=== PATIENT | female | born 1955 | race Caucasian/White ===

== ENCOUNTER → 2016-10-21 | Outpatient (CLI) | payer OTHER ==
[~2016-10-21] MED LIST: ASPCH81X PO; BNC/40 PO; CLC100 PO; CLIN150C PO; CLOP1TAB5 PO; COMBIVENT; FURO40TA3 PO; GLC5 PO; INSUINJ12 SC; LEVO200T6 PO; LEVO500T19 PO; LINA1CAP PO; LINA72CA; LPT/40 PO; METF1000 PO; METO25TA56 PO; NTRGSL/4 UT; NVLGI SC; OLME40TA30 PO; OLMETAB3; OMEP20CA9; OMEP40CA41 PO; OXYC-57 PO; SYN175 PO; TNR50 PO
[2016-10-21 13:18] LABS: BASO % 1.4 %; BASO ABS # 0.09 K/uL (0-0.2); COMPLETE YES; EOS % 2.1 %; HEMATOCRIT 38.8 % (37-47); IG% 0.2 %; LYMPH % 28.7 %; MEAN CELL VOLUME 87.4 fL (80-100); MEAN CORPUSCULAR HEMOGLOBIN 30.2 pg (25-34); MEAN CORPUSCULAR HGB CONC 34.5 g/dl (32-36); MEAN PLATELET VOLUME 9.4 fL (7.4-10.4); MONO % 8.3 %; NEUT % 59.3 %; PLATELET COUNT 243 K/uL (130-400); RED BLOOD COUNT 4.44 M/uL (4.2-5.4); WHITE BLOOD COUNT 6.63 K/uL (4.8-10.8)
[2016-10-21 13:27] LABS: ALT/SGPT 81 U/L (12-78); BLOOD UREA NITROGEN 22 mg/dl (7-18); BUN/CREATININE RATIO 18.4 (10-20); CALCIUM 8.9 mg/dl (8.5-10.1); CARBON DIOXIDE 25 mmol/L (21-32); CHLORIDE 94 mmol/L (98-107); CHOLESTEROL 151 mg/dl (0-200); GLUCOSE 345 mg/dl (70-99); POTASSIUM 4.9 mmol/L (3.5-5.1); SODIUM 129 mmol/L (136-145)
[2016-10-21 13:30] LABS: ALB/GLOB RATIO 0.8 (0.9-2); AST/SGOT 57 U/L (15-37)
[2016-10-21 13:37] LABS: ALKALINE PHOSPHATASE 137 U/L (45-117); BETA-HYDROXYBUTYRATE 1.15 mg/dL (0.2-2.81); CHOLESTEROL/HDL RATIO 3.9; HDL CHOLESTEROL 39 mg/dl; LDL CHOLESTEROL CALCULATED 82 mg/dl; THYROID STIMULATING HORMONE 0.382 uIu/ml (0.300-4.500); TRIGLYCERIDES 152 mg/dl (0-150); VERY LOW DENSITY LIPOPROT CALC 30 mg/dl
[2016-10-21 14:00] LABS: ESTIMATED AVERAGE GLUCOSE 197 mg/dl; HA1C FLAG Normal (Normal)
== END | disposition home or self-care (01) ==
LOC: C.LABSPEC 12:56
PROVIDERS: ATTEND Family Medicine
DX: E11.9 Type 2 diabetes mellitus without complications (principal); I10 Essential (primary) hypertension; E03.9 Hypothyroidism, unspecified

== ENCOUNTER → 2017-01-21 | Outpatient (CLI) | payer OTHER ==
[2017-01-21 13:51] LABS: BASO % 0.7 %; BASO ABS # 0.05 K/uL (0-0.2); COMPLETE YES; EOS % 2.5 %; HEMATOCRIT 41.2 % (37-47); IG% 0.1 %; LYMPH % 30.4 %; LYMPH ABS # 2.05 K/uL (1.2-3.4); MEAN CELL VOLUME 92.4 fL (80-100); MEAN CORPUSCULAR HEMOGLOBIN 30.5 pg (25-34); MEAN PLATELET VOLUME 9.6 fL (7.4-10.4); MONO % 7.6 %; NEUT % 58.7 %; PLATELET COUNT 240 K/uL (130-400); RED BLOOD COUNT 4.46 M/uL (4.2-5.4); WHITE BLOOD COUNT 6.75 K/uL (4.8-10.8)
[2017-01-21 14:06] LABS: CALCIUM 8.7 mg/dl (8.5-10.1)
[2017-01-21 14:17] LABS: ALT/SGPT 38 U/L (12-78); BLOOD UREA NITROGEN 21 mg/dl (7-18); BUN/CREATININE RATIO 17.7 (10-20); CARBON DIOXIDE 27 mmol/L (21-32); CHLORIDE 104 mmol/L (98-107); CHOLESTEROL 173 mg/dl (0-200); GLUCOSE 319 mg/dl (70-99); POTASSIUM 4.4 mmol/L (3.5-5.1); SODIUM 137 mmol/L (136-145)
[2017-01-21 14:19] LABS: ALB/GLOB RATIO 0.9 (0.9-2); ALKALINE PHOSPHATASE 122 U/L (45-117); AST/SGOT 24 U/L (15-37); CHOLESTEROL/HDL RATIO 3.7; HDL CHOLESTEROL 47 mg/dl
[2017-01-21 14:27] LABS: BETA-HYDROXYBUTYRATE 0.71 mg/dL (0.2-2.81); LDL CHOLESTEROL CALCULATED 85 mg/dl; TRIGLYCERIDES 206 mg/dl (0-150); VERY LOW DENSITY LIPOPROT CALC 41 mg/dl
[2017-01-21 14:28] LABS: ESTIMATED AVERAGE GLUCOSE 223 mg/dl; HA1C FLAG Normal (Normal)
== END | disposition home or self-care (01) ==
LOC: C.LABSPEC 13:13
PROVIDERS: ATTEND Family Medicine
DX: E11.9 Type 2 diabetes mellitus without complications (principal)

== ENCOUNTER → 2017-04-22 | Outpatient (CLI) | payer OTHER ==
[2017-04-22 13:53] LABS: BASO % 0.6 %; BASO ABS # 0.04 K/uL (0-0.2); COMPLETE YES; HEMATOCRIT 44.1 % (37-47); IG% 0.1 %; LYMPH % 25.4 %; LYMPH ABS # 1.72 K/uL (1.2-3.4); MEAN CELL VOLUME 90.4 fL (80-100); MEAN CORPUSCULAR HEMOGLOBIN 30.3 pg (25-34); MEAN CORPUSCULAR HGB CONC 33.6 g/dl (32-36); MEAN PLATELET VOLUME 9.6 fL (7.4-10.4); MONO % 7.7 %; NEUT % 65.2 %; PLATELET COUNT 242 K/uL (130-400); RED BLOOD COUNT 4.88 M/uL (4.2-5.4); WHITE BLOOD COUNT 6.78 K/uL (4.8-10.8)
[2017-04-22 14:15] LABS: ALT/SGPT 32 U/L (12-78); AST/SGOT 19 U/L (15-37); BLOOD UREA NITROGEN 22 mg/dl (7-18); BUN/CREATININE RATIO 18.4 (10-20); CALCIUM 9.3 mg/dl (8.5-10.1); CARBON DIOXIDE 27 mmol/L (21-32); CHLORIDE 102 mmol/L (98-107); GLUCOSE 198 mg/dl (70-99); HDL CHOLESTEROL 43 mg/dl; POTASSIUM 4.5 mmol/L (3.5-5.1); SODIUM 136 mmol/L (136-145)
[2017-04-22 14:19] LABS: ESTIMATED AVERAGE GLUCOSE 217 mg/dl; HA1C FLAG Normal (Normal)
[2017-04-22 14:21] LABS: ALB/GLOB RATIO 0.9 (0.9-2); ALKALINE PHOSPHATASE 130 U/L (45-117); CHOLESTEROL 164 mg/dl (0-200); CHOLESTEROL/HDL RATIO 3.8; LDL CHOLESTEROL CALCULATED 86 mg/dl; THYROID STIMULATING HORMONE 0.421 uIu/ml (0.300-4.500); TRIGLYCERIDES 175 mg/dl (0-150); VERY LOW DENSITY LIPOPROT CALC 35 mg/dl
== END | disposition home or self-care (01) ==
LOC: C.LABSPEC 13:32
PROVIDERS: ATTEND Family Medicine
DX: E11.9 Type 2 diabetes mellitus without complications (principal); I10 Essential (primary) hypertension; E03.9 Hypothyroidism, unspecified

== ENCOUNTER 2017-05-03 05:52 | Inpatient (IN) | payer OTHER ==
--- NOTE | 2017-05-02 18:08 | DIAGNOSTIC IMAGING REPORT ---
CHEST 2 VIEWS ROUTINE CLINICAL HISTORY: PRE OP TESTING preoperative evaluation COMPARISON STUDY: No previous studies for comparison. FINDINGS: The bones soft tissues and hemidiaphragms are normal. The cardiomediastinal silhouette is normal. The lungs are clear. The pulmonary vasculature is normal. IMPRESSION: Negative chest. The above report was generated using voice recognition software. It may contain grammatical, syntax or spelling errors. Electronically signed by: Darryl Fajardo M.D. 05/02/2017 6:07 PM Dictated Date/Time: 05/02/2017 6:07 PM
[2017-05-02 19:25] LABS: BASO % 0.6 %; BASO ABS # 0.04 K/uL (0-0.2); COMPLETE YES; EOS % 2.9 %; HEMATOCRIT 37.9 % (37-47); IG% 0.3 %; LYMPH % 25.3 %; LYMPH ABS # 1.67 K/uL (1.2-3.4); MEAN CELL VOLUME 90.2 fL (80-100); MEAN CORPUSCULAR HEMOGLOBIN 31.2 pg (25-34); MEAN CORPUSCULAR HGB CONC 34.6 g/dl (32-36); MEAN PLATELET VOLUME 9.7 fL (7.4-10.4); MONO % 11.7 %; NEUT % 59.2 %; PLATELET COUNT 244 K/uL (130-400)
[2017-05-02 19:26] LABS: INR 0.9 (0.9-1.1); PROTHROMBIN TIME (PATIENT) 9.6 SECONDS (9.0-12.0)
[2017-05-02 19:43] LABS: BLOOD UREA NITROGEN 26 mg/dl (7-18); BUN/CREATININE RATIO 18.7 (10-20); CALCIUM 8.7 mg/dl (8.5-10.1); CARBON DIOXIDE 27 mmol/L (21-32); CHLORIDE 99 mmol/L (98-107); SODIUM 134 mmol/L (136-145)
[2017-05-02 19:48] LABS: GLUCOSE 368 mg/dl (70-99)
[2017-05-02 20:00] LABS: BETA-HYDROXYBUTYRATE 0.78 mg/dL (0.2-2.81)
[2017-05-03] VITALS (10 sets, daily range): BP systolic 94–186; BP diastolic 29–113; PULSE 71–110; TEMP 36.2–36.9; O2SAT 94–97; BMI 32.0
[~2017-05-03] VITALS: Ht 167.6 cm; Wt 95.8 kg
--- NOTE | 2017-05-03 05:43 | History and Physical ---
History & Physical Date of Service May 03, 2017. History & Physical CC: Occluded left superficial femoral artery stents with rest pain HPI: Mrs. Pak states that she has had this wound for approximately 3 months. She states that she has been seeing a practice professional for a few months now and there has not been significant improvement. She does have a history of previously having a right iliac artery stent as well as left iliac artery stent placed. The patient does continue to smoke a pack of cigarettes daily. She admits bilateral calf claudication. Both legs are approximately equal and this occurs within 1 block distance. She denies any wounds or ulcerations on her right foot at this time. She did undergo ultrasound evaluation to determine the patency of her stents which demonstrates patent iliac artery stents. The bilateral lower extremity arterial ultrasound does indicate severe disease in her bilateral lower extremities with a right SFA occlusion and left severe stenosis with monophasic flow distal to those lesions and heavily calcified distal arteries, although she does have 3-vessel runoff to both feet. She underwent stenting of the left SFA which was successful but it has subsequently occluded and she now has developed rest pain. ALLERGIES: PENICILLIN AND LISINOPRIL. Medications were documented and reviewed and no changes were made. Past medical history is positive for diabetes, hypertension, coronary artery disease. Previous surgeries include tonsillectomy, cholecystectomy, , and breast biopsy. Social History: She smokes 1 pack a day for 45+ years. She does not drink. Review of Systems: Review of 10 systems were asked. Only positive findings were related to her lower extremities and the history of present illness. PHYSICAL EXAMINATION: Vital signs are as follows, blood pressure 162/60 in the right arm, 144/64 in the left, heart rate of 112, respiratory rate of 20 and oxygen saturation 94% on room air. Constitutional: In general, the patient is a chronically ill-appearing middle-aged female in no acute distress. There are bilateral carotid bruits which are fairly soft. Heart had a RRR. Lungs were clear. She ambulates slowly but without assistance and is active, alert and oriented x4. Her bilateral femoral pulses are +3. Her lower extremity distal pulses are nonpalpable. She has brisk capillary refill and no sign of distal ischemiaon the right. Her left third toe does have a somewhat wet appearing shallow ulceration to the tip of her third toe. She also appears to have a small scabbed area on her left foot. It is ruborous and cool to touch. Her right foot demonstrates no lesions or ulcerations. Imp: Left superficial femoral artery occlusion with rest pain Nonhealing toe wound left foot Plan: Patient is admitted for thrombectomy of the left lower extremity, possible arteriography with possible intervention, and possible fem pop bypass. I have discussed the risks options and benefits of the procedure with the patient. The patient understands the risks options and benefits and agrees to the procedure.
[~2017-05-03 05:52] MED LIST changes: -BNC/40 PO; -CLC100 PO; -CLIN150C PO; -COMBIVENT; -LEVO500T19 PO; -LINA1CAP PO; -OLME40TA30 PO; -OMEP40CA41 PO; -OXYC-57 PO; -SYN175 PO; -TNR50 PO
[2017-05-03] MEDS ORDERED: SODIUM CHLORIDE 0.9% 1000ML 1,000 ML IV SCH (06:00)
[2017-05-03] MEDS ORDERED: CLINDAMYCIN 600 MG/54 ML D5W IV SCH (06:00)
[2017-05-03] MEDS ORDERED: ROCURONIUM BROMIDE 10 MG/ML 5 ML VIAL IV ONE ×2 (06:17→11:34)
[2017-05-03] MEDS ORDERED: GLYCOPYRROLATE INJ 0.2 MG/ML VIAL ONE (06:17)
[2017-05-03] MEDS ORDERED: NEOSTIGMINE METHYLSULFATE 5 MG/5 ML SYR ONE (06:17)
[2017-05-03] MEDS ORDERED: DEXAMETHASONE SOD INJ 4 MG/ML VIAL ONE (06:17)
[2017-05-03] MEDS ORDERED: LIDOCAINE HCL 2% 2 ML VIAL (20MG/ML) ONE (06:17)
[2017-05-03] MEDS ORDERED: PROPOFOL IV EMULSION 10 MG/ML 20 ML VIAL IV ONE ×2 (06:17→12:15)
[2017-05-03] MEDS ORDERED: ONDANSETRON INJ 2 MG/ML 2 ML VIAL ONE ×2 (06:17→15:15)
[2017-05-03] MEDS ORDERED: MIDAZOLAM HCL 1 MG/ML 2ML VIAL ONE (06:18)
[2017-05-03] MEDS ORDERED: FENTANYL CITRATE INJ 50 MCG/1 ML 2 ML VIAL ONE ×4 (06:18→16:44)
[2017-05-03] MEDS ORDERED: HEPARIN SOD (PORCINE) 1000 UNIT/ML 10 ML VIAL ONE ×3 (06:22→07:23)
--- NOTE | 2017-05-03 07:06 | History & Physical Bridge Note ---
H&P Re-Evaluation Bridge Note: I have examined the patient, reviewed the History & Physical and in the interval since the performance of the History & Physical I have noted the following changes of clinical significance: No changes noted
[2017-05-03] MEDS ORDERED: OLME40TA30 PO (07:17)
[2017-05-03] MEDS ORDERED: COMBIVENT (07:18)
[2017-05-03] MEDS ORDERED: GELATIN SPONGE SZ 100 ONE (07:21)
[2017-05-03] MEDS ORDERED: BUPIVACAINE/EPINEPHRINE 0.5% MPF 1:200,000 30 ML VIAL ONE (07:22)
[2017-05-03] MEDS ORDERED: THROMBIN 5000 UNITS KIT ONE (07:22)
[2017-05-03] MEDS ORDERED: LIDOCAINE HCL 1% 20 ML VIAL ONE (07:22)
[2017-05-03] MEDS ORDERED: IODIXANOL (VISIPAQUE) 270 MG/ML 50ML ONE (07:22)
[2017-05-03] MEDS ORDERED: CEFAZOLIN SOD 1 GM VIAL ONE (07:23)
[2017-05-03] MEDS ORDERED: PAPAVERINE HCL INJ 30 MG/ML 2 ML VIAL ONE (07:23)
[2017-05-03] MEDS ORDERED: FENTANYL CITRATE INJ 50 MCG/1 ML 2 ML VIAL IV PRN (09:15)
[2017-05-03] MEDS ORDERED: ONDANSETRON INJ 2 MG/ML 2 ML VIAL IV PRN ×2 (09:15→15:00)
[2017-05-03] MEDS ORDERED: ATROPINE SULFATE 0.1 MG/ML 5ML SYR IV PRN (09:15)
[2017-05-03] MEDS ORDERED: EpHEDrine SULFATE INJ 50 MG/ML AMP IV PRN (09:15)
--- NOTE | 2017-05-03 09:39 | DIAGNOSTIC IMAGING REPORT ---
CAROTID DOPPLER NECK ART HISTORY: Carotid stenosis carotid bruit COMPARISON: None. TECHNIQUE: Real-time, grayscale, and color Doppler sonography of the carotid arteries was performed. Imaging reviewed in the transverse and longitudinal planes. All measurements were calculated based on NASCET criteria. FINDINGS: Antegrade flow is seen in the bilateral vertebral arteries. The brachial pressures are hemodynamically similar. Moderate plaque formation bilaterally The peak systolic velocity within the right ICA is 1:15. The right systolic ratio is 1.9. The peak systolic velocity within the left ICA is 99. The left systolic ratio is 1.3. Vertebral vessels. Dampened flow right vertebral vessel. IMPRESSION: 1. No hemodynamically significant stenosis seen within the carotid arteries. 2. Moderate atherosclerotic narrowing left external carotid artery. 3. High-grade stenosis right external carotid artery. 4. Dampened flow right vertebral vessel which may indicate downstream stenotic change The above report was generated using voice recognition software. It may contain grammatical, syntax or spelling errors. Electronically signed by: Darryl Fajardo M.D. 05/03/2017 9:37 AM Dictated Date/Time: 05/03/2017 9:36 AM
[2017-05-03] MEDS ORDERED: EpHEDrine SULFATE 50MG/5ML SYR ONE (11:01)
[2017-05-03] MEDS ORDERED: HYDROmorphone INJ 2 MG/ML SYR/VIAL ONE (11:04)
[2017-05-03] MEDS ORDERED: PHENYLEPHRINE HCL INJ 10 MG/ML VIAL ONE (12:44)
[2017-05-03] MEDS: THROMBIN 5000 UNITS KIT ONE ×2 (14:17→14:59)
[2017-05-03] MEDS ORDERED: SURGICEL ABSORB HEMOSTAT 2IN X 14IN TOP ONE (14:40)
--- NOTE | 2017-05-03 14:57 | [facility] Post Operative Brief Note ---
Immediate Operative Summary Operative Date May 03, 2017. Pre-Operative Diagnosis ischemic left leg Post-Operative Diagnosis ischemic left leg Procedure(s) Performed Left leg above the knee prosthetic femoral- popiteal bypass; femoral artery endoarectomy with patch Surgeon Dr. Kenny Gonzalez [employer] Supervisor Surgeon(s) Sylvia Silva PA-C Estimated Blood Loss 450mL Findings Good DP to doppler Specimens none per surgeon Anesthesia Gen Complication(s) None Disposition Recovery Room / PACU
[2017-05-03] MEDS ORDERED: ESMOLOL HCL 10 MG/ML 10 ML VIAL ONE (14:58)
[2017-05-03] MEDS ORDERED: GLUCOSE 10 TABS/TUBE PO PRN (15:00)
[2017-05-03] MEDS ORDERED: MoRPHine SULFATE 4 MG/ML 1 ML CARP\\VIAL IV PRN (15:00)
[2017-05-03] MEDS ORDERED: GLUCAGON FOR INJ 1 MG VIAL SQ PRN (15:00)
[2017-05-03] MEDS ORDERED: NITROGLYCERIN 0.4 MG SL PER TAB CHARGE UT SCH (15:00)
[2017-05-03] MEDS ORDERED: ACETAMINOPHEN 325 MG TAB PO PRN (15:00)
[2017-05-03] MEDS ORDERED: GLUCOSE 40% GEL 15 GM TUBE PO PRN (15:00)
[2017-05-03] MEDS ORDERED: DEXTROSE 50% 50 ML SYR IV PRN (15:00)
[2017-05-03] MEDS ORDERED: INSULIN HUMAN REGULAR PER UNIT 10 UNITS in SYRINGE 0 ML SC STA (15:09)
[2017-05-03] MEDS ORDERED: NovoLIN-R INSULIN PER UNIT CHARGE ONE (15:12)
[2017-05-03] MEDS ORDERED: METOCLOPRAMIDE HCL INJ 5 MG/ML 2 ML VIAL ONE (15:29)
[2017-05-03 15:32] LABS: BASO % 0.6 %; BASO ABS # 0.05 K/uL (0-0.2); COMPLETE YES; EOS % 0.3 %; HEMATOCRIT 31.2 % (37-47); IG% 0.3 %; LYMPH % 16.3 %; LYMPH ABS # 1.45 K/uL (1.2-3.4); MEAN CELL VOLUME 90.2 fL (80-100); MEAN CORPUSCULAR HEMOGLOBIN 29.5 pg (25-34); MEAN CORPUSCULAR HGB CONC 32.7 g/dl (32-36); MEAN PLATELET VOLUME 9.2 fL (7.4-10.4); MONO % 13.8 %; NEUT % 68.7 %; PLATELET COUNT 300 K/uL (130-400); RED BLOOD COUNT 3.46 M/uL (4.2-5.4); WHITE BLOOD COUNT 8.87 K/uL (4.8-10.8)
[2017-05-03] MEDS ORDERED: INSULIN HUMAN REGULAR PER UNIT 10 UNITS in SYRINGE 0 ML IV STA (15:44)
[2017-05-03 15:56] LABS: CALCIUM 8.2 mg/dl (8.5-10.1); CREATININE 1.5 mg/dl (0.60-1.20)
[2017-05-03 15:58] LABS: ISTAT CREATININE 1.4 mg/dl (0.6-1.3); ISTAT HEMOGLOBIN 9.2 g/dl (12.0-16.0); ISTAT IONIZED CALCIUM 1.11 mmol/l (1.12-1.32)
[2017-05-03] MEDS ORDERED: INSULIN HUMAN REGULAR SC SCH (16:00)
--- NOTE | 2017-05-03 16:09 | Anesthesiology Progress Note ---
Anesthesia Post Op Note Date & Time May 03, 2017 at 16:01 Vital Signs Pain Intensity: 0 Vital Signs Past 12 Hours Date Time Temp Pulse Resp B/P (MAP) Pulse Ox O2 Delivery O2 Flow Rate FiO2 05/03/17 15:05 36.4 100 12 90/68 97 Oxymask 10 05/03/17 06:35 36.9 71 20 186/81 (116) 97 Room Air Notes Mental Status: alert / awake / arousable, participated in evaluation Pt Amnestic to Procedure: Yes Nausea / Vomiting: adequately controlled Pain: adequately controlled Airway Patency, RR, SpO2: stable & adequate BP & HR: stable & adequate Hydration State: stable & adequate Anesthetic Complications: no major complications apparent Pt had stable BP and HR intra-operatively. Upon entering PACU, the pt stated that she was nauseous, and she was noted to be hypotensive with BP in the 80s and HR in 110s. The pt was administered a 500mL fluid bolus and phenylephrine IV boluses were administered. A phenylephrine gtt was started at 0.5 mcg/kg/ min. The pt's BP stabilized and her HR remained in the 80s. An ISTAT was checked showing her hemoglobin was 9.2. I spoke with Dr. Gonzalez, and he personally came to evaluate the patient. The pt was also noted to be hyperglycemic with BSG in the low 400s. The pt was administered 10 units regular insulin SQ. Upon recheck, her BSG was 396, 10 units of regular insulin was administered. The pt's vital signs remained stable on the phenylephrine gtt. BP was 130s/80s and HR was in the 80s. The pt stated feeling much better despite having LLE pain. I gave report to Dr. Noel, and he was updated on the pt's medical condition.
[2017-05-03 16:11] LABS: BETA-HYDROXYBUTYRATE 2.88 mg/dL (0.2-2.81)
[2017-05-03] MEDS: PHENYLEPHRINE HCL INJ 20 MG in DEXTROSE 5% 500ML 500 ML IV PRN ×2 (16:13→20:20)
[2017-05-03] MEDS ORDERED: NURSING VERBAL MED ORDER ONE (16:15)
[2017-05-03 16:16] LABS: POTASSIUM 5.1 mmol/L (3.5-5.1)
[2017-05-03] MEDS ORDERED: MoRPHine SULFATE 4 MG/ML 1 ML CARP\\VIAL ONE (17:40)
[2017-05-03] MEDS ORDERED: D5W AND 1/2NSS 1,000 ML IV SCH (18:00)
[2017-05-03] MEDS ORDERED: ICU PROTOCOL FOR HYPERGLYCEMIA PRN (18:15)
[2017-05-03] MEDS ORDERED: MoRPHine SULFATE 2 MG/ML CARP IV PRN (18:15)
[2017-05-03] MEDS ORDERED: SEVERE STRESS LEVEL ONE (18:15)
[2017-05-03] MEDS ORDERED: INSULIN PROTOCOL GOAL RANGE ONE (18:15)
--- NOTE | 2017-05-03 18:22 | Critical Care Consultation ---
Critical Care Consultation Date of Consultation: May 03, 2017. Attending Physician: Tony Gonzalez M.D. Reason for Consultation: s/o LEFT Fem/Pop Bypass, Hypotensive on Norsynephrine gtt, Hyperglycemic History of Present Illness Patient is a 62-year-old female with a significant past medical history of coronary artery disease, peripheral vascular disease, diabetes, hypertension, and significant smoking history who was admitted to the ICU status post femoropopliteal bypass performed this afternoon. This is an uneventful procedure with approximately 450 mL blood loss per surgical record. Postoperatively, the patient became hypotensive and tachycardic. She received phenylephrine pushes with moderate result of symptoms. Patient was placed on a Winston-Synephrine drip with continued control blood pressure and heart rate. Patient continues to complain of pain to the LEFT thigh postoperatively at the incision site. She was found to have some edema to the medial surface of the upper thigh which was evaluated by surgeon and has not expanded over the last several hours. Patient reports that she only has pain to the LEFT eye at this point. She currently denies any headaches, dizziness, lightheadedness, blurry vision, double vision, chest pain, palpitations, shortness of breath, nausea, vomiting, or abdominal pain. She denies any numbness or tingling into the extremities. Patient reports a significant past medical history of CABG 3 which was performed 10 years ago at [facility]. She has been medically managed for her coronary artery disease since. Over the past 2 years, she has had vascular procedures performed of the bilateral lower extremities secondary to severe peripheral arterial disease. She does continue to smoke approximately one pack of cigarette per day. She denies a smoking history. Her blood glucose is typically well controlled per patient. Past Medical/Surgical History CAD HTN T2DM CABGx3 PAD Smoking History Social History Smoking Status: Current Every Day Smoker Smokeless Tobacco Use: No Alcohol Use: none Drug Use: none Marital Status: Housing Status: lives with family Occupation Status: disabled Allergies Coded Allergies: Amlodipine (Verified Allergy, Intermediate, ?, 05/03/17) Lisinopril (Verified Allergy, Intermediate, ?, 05/03/17) Penicillins (Verified Allergy, Unknown, BUMPY RASH, 05/03/17) Home Medications Scheduled Aspirin (Aspirin Chewable), 81 MG PO DAILY Atorvastatin (Lipitor), 80 MG PO DAILY Clopidogrel Bisulfate (Plavix), 75 MG PO DAILY Furosemide (Lasix), 40 MG PO DAILY Glipizide (Glipizide), 5 MG PO BID Insulin Aspart (Novolog), 14 UNITS SC TID Insulin Detmir (Levemir), 68 UNITS SC DAILY Levothyroxine Sodium (Levothyroxine Sodium), 200 MCG PO DAILY Metformin Hcl (Glucophage), 1,000 MG PO BID Metoprolol Tartrate (Lopressor) (Lopressor), 1 TAB PO BID Nitroglycerin (Nitrostat), 0.4 MG UT PRN Olmesartan/Hctz (Benicar Hct 40/12.5), 1 TAB PO DAILY [combivent inh], 1 PUFF INH qidprn Scheduled PRN Oxycodone/Acetaminophen 5MG/325MG (Percocet 5MG/325MG), 1-2 TAB PO Q4H PRN for Moderate Pain Miscellaneous Medications Linaclotide (Linzess) Omeprazole (Prilosec) Current Inpatient Medications Current Inpatient Medications Medications (Trade) Dose Ordered Sig/Damion Route Start Time Stop Time Status Last Admin Dose Admin Clindamycin Phosphate 54 ml @ 100 mls/hr PREOP IV 05/03/17 06:00 05/03/17 18:00 Acetaminophen (Tylenol Tab) 650 mg Q4H PRN PO 05/03/17 15:00 06/02/17 14:59 Oxycodone/ Acetaminophen (Percocet 5-325mg Tab) `1-2 TABS FOR MODER... Q4H PRN PO 05/03/17 15:00 05/17/17 14:59 Morphine Sulfate (MoRPHine SULFATE INJ) If PO analgesic is orde... Q2H PRN IV 05/03/17 15:00 05/17/17 14:59 UNV Ondansetron HCl (Zofran Inj) 4 mg Q6H PRN IV 05/03/17 15:00 06/02/17 14:59 Clindamycin Phosphate 600 mg/ Dextrose 54 ml @ 100 mls/hr Q8H IV 05/03/17 15:00 05/03/17 23:33 UNV Enoxaparin Sodium (Lovenox Inj) 30 mg Q12 SQ 05/04/17 08:00 06/03/17 07:59 UNV Dextrose/Sodium Chloride 1,000 ml @ 125 mls/hr Q8H IV 05/03/17 14:57 06/02/17 14:56 UNV Aspirin (Aspirin Chew) 81 mg DAILY PO 05/04/17 09:00 06/03/17 08:59 UNV Atorvastatin Calcium (Lipitor Tab) 80 mg DAILY PO 05/04/17 09:00 06/03/17 08:59 UNV Clopidogrel Bisulfate (plAVix TAB) 75 mg DAILY PO 05/04/17 09:00 06/03/17 08:59 UNV Furosemide (Lasix Tab) 40 mg DAILY PO 05/04/17 09:00 06/03/17 08:59 UNV Glipizide (Glucotrol Tab) 5 mg BID PO 05/03/17 21:00 06/02/17 20:59 UNV Insulin Aspart (novoLOG INSULIN PUMP) 14 ea TID N/A 05/03/17 21:00 06/02/17 20:59 UNV Levothyroxine Sodium (Synthroid Tab) 200 mcg DAILY PO 05/04/17 09:00 06/03/17 08:59 UNV Metoprolol Tartrate (Lopressor Tab) 25 mg BID PO 05/03/17 21:00 06/02/17 20:59 UNV Nitroglycerin (Nitrostat Tab) 0.4 mg PRN UT 05/03/17 15:00 06/02/17 14:59 Non-Formulary Medication (Insulin Detmir (Levemir)) 68 units DAILY SC 05/04/17 09:00 06/03/17 08:59 UNV Non-Formulary Medication (Olmesartan/Hctz (Benicar Hct 40/ 12.5)) 1 tab DAILY PO 05/04/17 09:00 06/03/17 08:59 UNV Non-Formulary Medication ([combivent inh] ) 1 puff qidprn INH 05/03/17 15:00 06/02/17 14:59 UNV Insulin Human Regular (novoLIN-R) SLIDING SCALE IF C... ACHS SC 05/03/17 16:00 06/02/17 15:59 UNV Glucose (Glucose 40% Gel) 15-30 GRAMS 15 GRAMS... UD PRN PO 05/03/17 15:00 06/02/17 14:59 Glucose (Glucose Chew Tab) 4-8 Tablets 4 Tabl... UD PRN PO 05/03/17 15:00 06/02/17 14:59 Dextrose (Dextrose 50% 50ML Syringe) 25-50ML OF 50% DW IV FOR... UD PRN IV 05/03/17 15:00 06/02/17 14:59 Glucagon (Glucagon Inj) 1 mg UD PRN SQ 05/03/17 15:00 06/02/17 14:59 Phenylephrine HCl 20 mg/Dextrose 502 ml @ 68 mls/hr Q7H23M PRN IV 05/03/17 15:45 06/02/17 15:44 05/03/17 16:13 68 MLS/HR Miscellaneous Information (Nursing Verbal Med Order) 1 ea ONE ONCE N/A 05/03/17 16:15 05/03/17 16:16 UNV Review of Systems A complete 10-point Review of Systems was discussed with the patient, with pertinent positives and negatives listed in the History of Present Illness. All remaining Review of Systems questions can be considered negative unless otherwise specified. Physical Exam Date Time Temp Pulse Resp B/P (MAP) Pulse Ox O2 Delivery O2 Flow Rate FiO2 05/03/17 16:25 100 18 102/55 99 Nasal Cannula 4 107/36 (58) 05/03/17 16:15 36.8 101 18 99/58 99 Nasal Cannula 4 106/35 (57) 05/03/17 16:05 100 18 105/47 100 Nasal Cannula 4 103/35 (56) 05/03/17 15:55 92 19 124/60 98 Oxymask 10 121/37 (65) 05/03/17 15:45 92 19 126/53 98 Oxymask 10 121/38 (64) 05/03/17 15:35 118 14 83/53 99 Oxymask 10 81/34 (49) 05/03/17 15:25 111 24 78/56 98 Oxymask 10 84/38 (53) 05/03/17 15:15 120 18 106/82 97 Oxymask 10 05/03/17 15:05 36.4 100 12 90/68 97 Oxymask 10 05/03/17 06:35 36.9 71 20 186/81 (116) 97 Room Air VITAL SIGNS - Vital signs and nursing notes were reviewed. GENERAL - 62-year-old female appearing her stated age who is in no acute distress. Drowsy post-operatively. SKIN - Multiple previous areas of healed ulcerations noted to the bilateral lower extremities. Surgical sites with dressings intact to the medial surface of the LEFT thigh and groin. No active bleeding appreciated. Well demarcated area of palpable edema noted to the medial surface of the thigh. No ecchymosis or erythema appreciated. HEAD - NC/AT. NECK - Neck with FROM. Supple to palpation. LUNGS - Chest wall symmetric without accessory muscle use, intercostals retractions, or central cyanosis. Normal vesicular breath sounds CTA B/L. No wheezes, rales, or rhonchi appreciated. CARDIAC - RRR with S1/S2. Previously well healed surgical incision site noted to the chest. Systolic murmur appreciated on exam. No rubs or gallops appreciated. ABDOMEN - Abdominal contour obese without pulsations or visible masses. BS normoactive all four quadrants. No tenderness, palpable masses, hepatosplenomegaly, or ascites noted. EXTREMITIES - No clubbing or peripheral cyanosis. No pretibial edema present. +1 /5 LEFT and +2/5 RIGHT dorsalis pedis pulses palpated. +5/5 strength noted in UE /LE bilaterally. NEUROLOGIC - Cranial nerves II through XII grossly intact. PSYCH - A&Ox3 and cooperates fully with examiner. Laboratory Results Last 24 Hours Test 05/02/17 17:38 05/03/17 06:32 05/03/17 15:07 05/03/17 15:21 White Blood Count 6.60 K/uL 8.87 K/uL Red Blood Count 4.20 M/uL 3.46 M/uL Hemoglobin 13.1 g/dL 10.2 g/dL Hematocrit 37.9 % 31.2 % Mean Corpuscular Volume 90.2 fL 90.2 fL Mean Corpuscular Hemoglobin 31.2 pg 29.5 pg Mean Corpuscular Hemoglobin Concent 34.6 g/dl 32.7 g/dl Platelet Count 244 K/uL 300 K/uL Mean Platelet Volume 9.7 fL 9.2 fL Neutrophils (%) (Auto) 59.2 % 68.7 % Lymphocytes (%) (Auto) 25.3 % 16.3 % Monocytes (%) (Auto) 11.7 % 13.8 % Eosinophils (%) (Auto) 2.9 % 0.3 % Basophils (%) (Auto) 0.6 % 0.6 % Neutrophils # (Auto) 3.91 K/uL 6.09 K/uL Lymphocytes # (Auto) 1.67 K/uL 1.45 K/uL Monocytes # (Auto) 0.77 K/uL 1.22 K/uL Eosinophils # (Auto) 0.19 K/uL 0.03 K/uL Basophils # (Auto) 0.04 K/uL 0.05 K/uL RDW Standard Deviation 47.1 fL 46.8 fL RDW Coefficient of Variation 14.2 % 14.2 % Immature Granulocyte % (Auto) 0.3 % 0.3 % Immature Granulocyte # (Auto) 0.02 K/uL 0.03 K/uL Prothrombin Time 9.6 SECONDS Prothromb Time International Ratio 0.9 Activated Partial Thromboplast Time 26.1 SECONDS Partial Thromboplastin Ratio 1.0 Sodium Level 134 mmol/L 138 mmol/L Potassium Level 4.0 mmol/L 5.1 mmol/L Chloride Level 99 mmol/L 108 mmol/L Carbon Dioxide Level 27 mmol/L 21 mmol/L Anion Gap 8.0 mmol/L 9.0 mmol/L Blood Urea Nitrogen 26 mg/dl 23 mg/dl Creatinine 1.40 mg/dl 1.50 mg/dl Estimated GFR () 46.2 42.5 Estimated GFR (Non- 39.9 36.7 BUN/Creatinine Ratio 18.7 15.0 Random Glucose 368 mg/dl 395 mg/dl Calcium Level 8.7 mg/dl 8.2 mg/dl Beta-Hydroxybutyric Acid 0.78 mg/dL 2.88 mg/dL Bedside Glucose 310 mg/dl 394 mg/dl Est Creatinine Clear Calc Drug Dose 43.4 ml/min Test 05/03/17 15:28 05/03/17 15:48 05/03/17 16:36 Bedside Hemoglobin 9.2 g/dl Bedside Hematocrit 27 % Bedside Sodium 138 mEq/L Bedside Potassium 4.9 mEq/L Bedside Chloride 104 mEq/L Bedside Total CO2 21 mEq/l Anion Gap 19.0 mmol/L Bedside Blood Urea Nitrogen 22 mg/dl Bedside Creatinine 1.4 mg/dl Bedside Glucose (other) 424 mg/dl Bedside Ionized Calcium (Joesph) 1.11 mmol/l Bedside Glucose 396 mg/dl 376 mg/dl Diagnostic Results Radiological imaging and reports were reviewed by myself. Radiologist's Interpretation as follows: CHEST 2 VIEWS ROUTINE CLINICAL HISTORY: PRE OP TESTING preoperative evaluation COMPARISON STUDY: No previous studies for comparison. FINDINGS: The bones soft tissues and hemidiaphragms are normal. The cardiomediastinal silhouette is normal. The lungs are clear. The pulmonary vasculature is normal. IMPRESSION: Negative chest. CAROTID DOPPLER NECK ART HISTORY: Carotid stenosis carotid bruit COMPARISON: None. TECHNIQUE: Real-time, grayscale, and color Doppler sonography of the carotid arteries was performed. Imaging reviewed in the transverse and longitudinal planes. All measurements were calculated based on NASCET criteria. FINDINGS: Antegrade flow is seen in the bilateral vertebral arteries. The brachial pressures are hemodynamically similar. Moderate plaque formation bilaterally The peak systolic velocity within the right ICA is 1:15. The right systolic ratio is 1.9. The peak systolic velocity within the left ICA is 99. The left systolic ratio is 1.3. Vertebral vessels. Dampened flow right vertebral vessel. IMPRESSION: 1. No hemodynamically significant stenosis seen within the carotid arteries. 2. Moderate atherosclerotic narrowing left external carotid artery. 3. High-grade stenosis right external carotid artery. 4. Dampened flow right vertebral vessel which may indicate downstream stenotic change Assessment & Plan Reason Critically Ill: 62-year-old female on Winston-Synephrine drip status post LEFT femoropopliteal bypass. Hyperglycemic status post procedure. Neuro - * CAM ICU: NEGATIVE * Pain control s/p surgery: * Currently Morphine/Percocet order. * Will make Fentanyl available for pain control in the setting of hypotension. Cardiac - * Postoperative Hypotension/Tachycardia: * Currently on Winston-Synephrine drip. * Will continue to titrate down as BP tolerates. * RIGHT Brachial A.Line in place for close monitoring. * History of CABGx3, 10 years ago at [facility]: * Will continue Plavix/ASA/Lipitor. * Will restart other home Rx as BP tolerates. * Will monitor on telemetry. * EKGs for any c/o chest pain. Respiratory - * No known history of pulmonary disease. * Will provide supplemental O2 in the postoperative setting. * Titrate down as tolerated. * Monitor pulse oximetry. GI - * h/o GERD on Prilosec 20 mg * Will place on Prevacid 15 mg PO while in hospital. * h/o IBS/Chronic Constipation * On Linzess at home - not on formulary. * Bowel regime as needed - especially in the setting of narcotic pain Rx use. RENAL/LYTES - * Apparent baseline creatine elevation/CKD - Cr 1.5. * Will hydrate with Normosol at 125 mL/hr. Change from D5 1/2 NSS in setting of hyperglycemia. * Will monitor lytes - replace appropriately. - * Brunner Catheter in place. * Strict I&Os. ENDO - * T2DM: * Multiple Rx at home including insulin. * Will start insulin gtt in the setting of BGSs >300s. HEME - * Will monitor H&H in the setting of postoperative hypotension/tachycardia. * No obvious bleeding at this point. * Type/Cross previously performed if transfusion necessary (OR consent for transfusion on chart). ID - * No findings of infection at this point. * Will receive IV clindamycin per postoperative protocol. LINES/IV ACCESS - * PIVs intact. * RIGHT Brachial Arterial Line in place. * Brunner Catheter in place. DVT PROPHYLAXIS - * Lovenox 30 mg sq. I have personally spent 35 minutes of critical care time in the direct management of this patient. This is a life/limb threatening event. This includes time spent evaluating patient, direct bedside care, chart review, placing orders, interpretation of diagnostic studies, discussion with consultants, patient, and family members, as well as other required patient management activities. This time is exclusive of all separately billable procedures, and teaching time and separate from and in addition to any other critical care service time. Thank you for this consultation allow us to be part of this patient's care. Please refer to my attending physician's documentation for any further recommendations. I have personally evaluated and examined this patient. I agree with assessment and plan of Laura Gilbert PA-C. Patient critically ill due to hypotension requiring vasoactive medications, hyperglycemia requiring insulin infusion. Attempting to wean vasoactive medication at this time.
[2017-05-03] MEDS ORDERED: INSULIN IV INFUSION PROTOCOL SCH (18:45)
[2017-05-03] MEDS ORDERED: INSULIN HUMAN REGULAR IV BOLUS 3.5 UNIT in SYRINGE 0 ML IV SCH (18:50)
[2017-05-03] MEDS: NORMOSOL R 1,000 ML IV SCH (18:57)
[2017-05-03] MEDS: CLINDAMYCIN IV 600 MG in DEXTROSE 5% 50ML 50 ML IV SCH (18:57)
--- NOTE | 2017-05-03 19:14 | Pharmacy Progress Note ---
Glycemic Control Intl Consult Date of Service May 03, 2017. Scope Glycemic Pharmacist consulted by Laura Gilbert PA-C on 05/03/17 for glycemic control and to write orders per [facility] inpatient glycemic control protocol Objective Weight (Kilograms): 90.000 Accuchecks BSG (last 24hrs): Test 05/03/17 06:32 05/03/17 15:07 05/03/17 15:21 05/03/17 15:48 Bedside Glucose 310 mg/dl (70-90) 394 mg/dl (70-90) 396 mg/dl (70-90) Random Glucose 395 mg/dl (70-99) Test 05/03/17 16:36 05/03/17 18:17 Bedside Glucose 376 mg/dl (70-90) 356 mg/dl (70-90) Laboratory Data (last 24hrs) Test 05/03/17 15:21 05/03/17 15:28 Anion Gap 9.0 mmol/L 19.0 mmol/L BUN/Creatinine Ratio 15.0 Blood Urea Nitrogen 23 mg/dl Creatinine 1.50 mg/dl Potassium Level 5.1 mmol/L Sodium Level 138 mmol/L White Blood Count 8.87 K/uL Red Blood Count 3.46 M/uL Hemoglobin 10.2 g/dL Hematocrit 31.2 % Mean Corpuscular Volume 90.2 fL Mean Corpuscular Hemoglobin 29.5 pg Mean Corpuscular Hemoglobin Concent 32.7 g/dl Platelet Count 300 K/uL Mean Platelet Volume 9.2 fL Neutrophils (%) (Auto) 68.7 % Lymphocytes (%) (Auto) 16.3 % Monocytes (%) (Auto) 13.8 % Eosinophils (%) (Auto) 0.3 % Basophils (%) (Auto) 0.6 % Neutrophils # (Auto) 6.09 K/uL Lymphocytes # (Auto) 1.45 K/uL Monocytes # (Auto) 1.22 K/uL Eosinophils # (Auto) 0.03 K/uL Basophils # (Auto) 0.05 K/uL Recent Pertinent Medications Outpatient Anti-diabetic Regimen: * Levemir 68 units SQ daily + Novolog 14 units SQ TID * Metformin 1000 mg PO BID + glipizide 5 mg PO BID * A1c = 9.2 % 04/22/17 Risk Factors for Insulin Resistance: * Pressors: phenylephrine drip (started in PACU) * IVF: Normosol @ 125 ml/hr * Recent Surgery: POD #0 femoropopliteal bypass * Diet: AHA, T2DM Assessment & Plan ASSESSMENT: * 62 yr old T2DM female admitted to ICU s/p femoropopliteal bypass surgery this afternoon. Patient became hypotensive and tachycardic in PACU and was started on a phenylephrine drip. She was given 10 units of IV insulin in PACU due to severe hyperglycemia. * IV insulin infusion ordered upon admission to the ICU for BSG > 250 mg/dL. * ADA & AACE recommend a goal blood sugar range 140-180 mg/dl for the majority of critically ill & non-critically ill patients. However, more stringent targets may be selected in individual cases. PLAN FOR INPATIENT GLYCEMIC CONTROL: * Starting IV insulin infusion per severe stress protocol * Goal Range 140 - 180 mg/dl * In the critical care setting, continuous IV insulin infusion has been shown to be the best method for achieving glycemic targets. * Holding outpatient oral diabetes medications * Please note that the plan above was derived based on current level of insulin resistance and hospital stress. These recommendations are appropriate for inpatient admission only. Plan of care upon discharge will need to be reassessed to avoid potential outpatient hypo/hyperglycemia. Thank you.
[2017-05-03] MEDS: INSULIN REGULAR 250 UNITS in SODIUM CHLORIDE 0.9% 250ML 250 ML IV SCH (19:33)
[2017-05-03] MEDS: IPRATROPIUM BROMIDE/ALBUTEROL respimat INH INH SCH (20:18)
[2017-05-03] MEDS: INSULIN ASPART 100 UNITS/ML 3 ML PEN SC SCH (21:00)
[2017-05-03] MEDS ORDERED: INSULIN DETEMIR FLEXPEN/FLEX TOUCH 100 UNITS/ML 3ML SC SCH (21:00)
[2017-05-03] MEDS: METOPROLOL TARTRATE 25 MG TAB PO SCH (21:00)
[2017-05-03] MEDS ORDERED: INSULIN ASPART 100 UNITS/ML 3 ML PEN SC SCH (21:00)
[2017-05-03] MEDS ORDERED: NovoLOG INSULIN PUMP SCH (21:00)
[2017-05-03] MEDS: FENTANYL CITRATE INJ 50 MCG/1 ML 2 ML VIAL IV PRN (21:42)
[2017-05-03] MEDS ORDERED: PHENYLEPHRINE HCL INJ 20 MG in SODIUM CHLORIDE 0.9% 500ML 500 ML IV PRN (22:30)
[2017-05-04] VITALS (20 sets, daily range): BP systolic 82–145; BP diastolic 25–77; PULSE 81–101; TEMP 36.4–36.9; O2SAT 90–97; BMI 33.2
[2017-05-04] MEDS: CLINDAMYCIN IV 600 MG in DEXTROSE 5% 50ML 50 ML IV SCH (02:29)
[2017-05-04] MEDS: NORMOSOL R 1,000 ML IV SCH ×2 (02:29→10:15)
[2017-05-04] MEDS: OXYCODONE/ACETAMINOPHEN 5-325 TAB PO PRN ×2 (04:07→17:16)
[2017-05-04] MEDS: LEVOTHYROXINE 200 MCG TAB PO SCH (06:17)
[2017-05-04 06:18] LABS: BASO % 0.4 %; BASO ABS # 0.04 K/uL (0-0.2); EOS % 0.2 %; HEMATOCRIT 22.6 % (37-47); IG% 0.4 %; LYMPH % 18.8 %; MEAN CORPUSCULAR HEMOGLOBIN 29.9 pg (25-34); MEAN CORPUSCULAR HGB CONC 33.2 g/dl (32-36); MEAN PLATELET VOLUME 9.3 fL (7.4-10.4); MONO % 16.2 %; PLATELET COUNT 252 K/uL (130-400); RED BLOOD COUNT 2.51 M/uL (4.2-5.4); WHITE BLOOD COUNT 10.13 K/uL (4.8-10.8)
[2017-05-04 06:54] LABS: BUN/CREATININE RATIO 15.2 (10-20); CALCIUM 7.4 mg/dl (8.5-10.1); CREATININE 1.9 mg/dl (0.60-1.20); MAGNESIUM 1.7 mg/dl (1.8-2.4); PHOSPHORUS 4.5 mg/dl (2.5-4.9); POTASSIUM 4.7 mmol/L (3.5-5.1)
[2017-05-04 06:59] LABS: COMPLETE YES
--- NOTE | 2017-05-04 06:59 | Clinical Documentation Query ---
Dr. GUZMAN NAHUN : CLINICAL DOCUMENTATION QUERIES QUERY 1 OF 3 Patient is a 62 year old female who underwent left leg above the knee prosthetic femoral- popliteal bypass; femoral artery endarterectomy with patch on 05/03/17. H&P describes a left third toe wound, not otherwise specified. Implied is an ischemic etiology as that is the reason of admission, and characterization of claudication, rest pain in the setting of known PAD. As this link cannot be automatically assumed by the professional land law examiner, consider explicit documentation as suggested below. In your clinical opinion is this patient being managed for: ( x ) Ischemic ulcer of left third toe ( ) Not Agree ( ) Other explanation of clinical findings (Please Explain) ( ) Unable to determine (Please Define) ( ) Need to Discuss The medical record reflects the following clinical findings, treatment, and risk factors. Clinical Indicators: As above Treatment: OP Podiatry visits Risk Factors: Age, smoking, DM, hypertension QUERY 2 OF 3 Preoperative hemoglobin and hematocrit were 13.1 g/dl and 37.9%. POD #1, repeat values are 7.5 g/dl and 22.6%. EBL for the procedure was 450 ml's. Net I/O positive for 2,500 ml's at this time. She is being monitored with groin assessments, serial hematology, and I/O. In your clinical opinion is this patient being managed for: ( ) Acute blood loss and hemodilution related anemia ( ) Not Agree ( ) Other explanation of clinical findings (Please Explain) ( ) Unable to determine (Please Define) ( ) Need to Discuss The medical record reflects the following clinical findings, treatment, and risk factors. Clinical Indicators: As above Treatment: She is being monitored with groin assessments, serial hematology, and I/O Risk Factors: Perioperative blood losses and IVF administration QUERY 3 OF 3 BUN, creatinine, and estimated GFR on admission of 26 mg/dl, 1.40 mg/dl, and 40 ml/min. Historical GFR range from 10/2014 to present of 37-54 ml/min, consistent with CKD stage 3 per NKF guidelines. Please clarify as clinically appropriate. Thank you. In your clinical opinion is this patient being managed for: ( ) Chronic kidney disease, stage 3 ( ) Not Agree ( ) Other explanation of clinical findings (Please Explain) ( ) Unable to determine (Please Define) ( ) Need to Discuss The medical record reflects the following clinical findings, treatment, and risk factors. Clinical Indicators: As above Treatment: IVF, serial chemistries Risk Factors: Age, DM, hypertension, smoking Please clarify and document your clinical opinion in the progress notes and discharge summary. Terms such as "probable", "suspected", "likely", "questionable", "possible", or "still to be ruled out" are acceptable. IF IN AGREEMENT, YOU MUST DOCUMENT ABOVE DIAGNOSTIC STATEMENT IN DAILY PROGRESS NOTES AND DISCHARGE SUMMARY. This document is not part of the patient's record. Thank You, Omid Thomas, BRANT [phone]
[2017-05-04] MEDS: FENTANYL CITRATE INJ 50 MCG/1 ML 2 ML VIAL IV PRN ×2 (07:49→13:50)
[2017-05-04] MEDS ORDERED: ENOXAPARIN 30 MG/0.3 ML SYR SQ SCH (08:00)
[2017-05-04] MEDS: INSULIN ASPART 100 UNITS/ML 3 ML PEN SC SCH ×5 (08:00→23:57)
[2017-05-04] MEDS: IPRATROPIUM BROMIDE/ALBUTEROL respimat INH INH SCH ×4 (08:35→20:23)
[2017-05-04] MEDS: ASPIRIN 81 MG ECTAB PO SCH (08:36)
[2017-05-04] MEDS: LANSOPRAZOLE SOLUTAB 15 MG PO SCH (08:37)
[2017-05-04] MEDS: ATORVASTATIN 40 MG TAB PO SCH (08:37)
[2017-05-04] MEDS: OLMESARTAN MEDOXOMIL 40 MG TAB PO SCH (09:00)
[2017-05-04] MEDS: FUROSEMIDE 40 MG TAB PO SCH (09:00)
[2017-05-04] MEDS: HYDROCHLOROTHIAZIDE 25 MG TAB PO SCH (09:00)
[2017-05-04] MEDS: METOPROLOL TARTRATE 25 MG TAB PO SCH ×2 (09:00→20:23)
--- NOTE | 2017-05-04 10:06 | Anesthesiology Progress Note ---
Anesthesia Post Op Note Date & Time May 04, 2017 at 10:04 Vital Signs Pain Intensity: 10.0 Vital Signs Past 12 Hours Date Time Temp Pulse Resp B/P (MAP) Pulse Ox O2 Delivery O2 Flow Rate FiO2 05/04/17 08:57 36.4 99 15 88/25 92 2.0 05/04/17 08:41 36.8 99 13 82/35 93 2.0 05/04/17 08:00 96 Nasal Cannula 2.0 05/04/17 06:00 91 14 105/44 (64) 96 Nasal Cannula 2.0 05/04/17 04:00 95 Nasal Cannula 2.0 05/04/17 04:00 36.8 97 15 96/41 (59) 95 Nasal Cannula 2.0 05/04/17 02:00 87 14 121/47 (71) 96 Nasal Cannula 2.0 05/04/17 00:01 36.6 85 14 124/41 (68) 97 Nasal Cannula 2.0 05/03/17 23:59 97 Nasal Cannula 2.0 Notes Mental Status: alert / awake / arousable, participated in evaluation Pt Amnestic to Procedure: Yes Nausea / Vomiting: adequately controlled Pain: see Notes Airway Patency, RR, SpO2: stable & adequate BP & HR: stable & adequate Hydration State: stable & adequate Anesthetic Complications: no major complications apparent patient currently has surgical site firmness and increased pain throughout night. Being medicated for pain by RN, H/H dropped and is currently receiving [address] Gonzalez to come and assess patient.
[2017-05-04] MEDS ORDERED: PHARMACY GLYCEMIC MGMT CONSULT PRN (10:15)
[2017-05-04] MEDS: CLOPIDOGREL BISULFATE 75 MG TAB PO SCH (10:16)
[2017-05-04] MEDS: ENOXAPARIN 40 MG/0.4 ML SYR SQ SCH (10:37)
[2017-05-04] MEDS: INSULIN REGULAR 250 UNITS in SODIUM CHLORIDE 0.9% 250ML 250 ML IV SCH (11:30)
--- NOTE | 2017-05-04 11:38 | Pharmacy Progress Note ---
Glycemic Control Progress Note Date of Service May 04, 2017. Scope Glycemic Pharmacist consulted for glycemic control to write orders per [facility] inpatient glycemic control protocol. Objective Accuchecks BSG (last 24hrs): Test 05/03/17 15:07 05/03/17 15:21 05/03/17 15:48 05/03/17 16:36 Bedside Glucose 394 mg/dl (70-90) 396 mg/dl (70-90) 376 mg/dl (70-90) Random Glucose 395 mg/dl (70-99) Test 05/03/17 18:17 05/03/17 20:27 05/03/17 21:29 05/03/17 22:29 Bedside Glucose 356 mg/dl (70-90) 377 mg/dl (70-90) 378 mg/dl (70-90) 333 mg/dl (70-90) Test 05/03/17 23:39 05/04/17 00:43 05/04/17 01:36 05/04/17 02:34 Bedside Glucose 324 mg/dl (70-90) 293 mg/dl (70-90) 225 mg/dl (70-90) 231 mg/dl (70-90) Test 05/04/17 03:42 05/04/17 04:40 05/04/17 05:37 05/04/17 05:40 Bedside Glucose 177 mg/dl (70-90) 119 mg/dl (70-90) 124 mg/dl (70-90) Random Glucose 106 mg/dl (70-99) Test 05/04/17 06:43 05/04/17 07:38 Bedside Glucose 142 mg/dl (70-90) 147 mg/dl (70-90) HbA1c: 9.2% 04/22/17 Recent Pertinent Medications The patient is currently receiving: * Insulin infusion per protocol Outpatient Anti-Diabetic Meds Basal & Bolus Insulin Assessment & Plan ASSESSMENT: * See progress note from 05/03/17 for more background info, in short: * Pt receiving IV insulin infusion for hyperglycemia secondary to baseline DM ( outpatient regimen on hold),stress, pressors, dextrose IVF, recent surgery, steroids * Plan for today is to transition off insulin drip as patient within goal range and likely transitioning out of ICU * Prednisone 50 mg PO X 1 given this AM per ICU rounds, which should cause drip rates to go up slightly * Average rate through the morning was ~5 units/hr and now down to ~3 units/hr * Basal insulin for this patient hasn't been given since 05/01/17 which shows why she was on the insulin drip to begin with * Transition this afternoon with Levemir/Novolog based on outpatient dose and check BSGs frequently PLAN FOR INPATIENT GLYCEMIC CONTROL: * Continue IV insulin drip for 3 hours and discontinue * Basal insulin * Levemir 28 units X 1 now * Continue Levemir this evening based on BSG trend * Start to transition patient back to HS dosing tomorrow * Bolus insulin * NovoLog per scale ACHS + 00,04 checks * Goal Range: Low 140 mg/dL - High 180 mg/dL * Correction Factor: 20 mg/dL/unit * Nutritional / Prandial insulin per carb ratio of 1 unit per 7 grams CHO consumed * Please note that the plan above was derived based on current level of insulin resistance and hospital stress. These recommendations are appropriate for inpatient admission only. Plan of care upon discharge will need to be reassessed to avoid potential outpatient hypo/hyperglycemia. Thank you.
[2017-05-04] MEDS ORDERED: INSULIN DETEMIR FLEXPEN/FLEX TOUCH 100 UNITS/ML 3ML SC ONE (11:45)
--- NOTE | 2017-05-04 12:17 | Critical Care Progress Note ---
Critical Care Progress Note Date of Service May 04, 2017. ICU Day ICU Day Number: [address] Noel Subjective Patient is a 62-year-old female who is admitted the ICU last evening postoperatively after LEFT-sided femoropopliteal bypass. The patient required Winston-Synephrine for most of the night. Pressors were discontinued this morning. She has required pain medications for LEFT lower chart he pain. She reports that she has felt well otherwise other than her LEFT lower extremity discomfort. Patient did drop her H&H to 7.5/22.6 overnight. Patient denies any headaches, dizziness, lightheadedness, chest pain, palpitations, shortness of breath, nausea, vomiting, or abdominal pain. Objective VITAL SIGNS - Vital signs and nursing notes were reviewed. GENERAL - 62-year-old female appearing her stated age who is in no acute distress. SKIN - Multiple previous areas of healed ulcerations noted to the bilateral lower extremities. Surgical sites with dressings intact to the medial surface of the LEFT thigh and groin. No active bleeding appreciated. Well demarcated area of palpable edema noted to the medial surface of the thigh which has increase in size. No ecchymosis or erythema appreciated. LUNGS - Chest wall symmetric without accessory muscle use, intercostals retractions, or central cyanosis. Normal vesicular breath sounds CTA B/L. No wheezes, rales, or rhonchi appreciated. CARDIAC - RRR with S1/S2. Previously well healed surgical incision site noted to the chest. Systolic murmur appreciated on exam. No rubs or gallops appreciated. ABDOMEN - Abdominal contour obese without pulsations or visible masses. BS normoactive all four quadrants. No tenderness, palpable masses, hepatosplenomegaly, or ascites noted. EXTREMITIES - No clubbing or peripheral cyanosis. No pretibial edema present. +1 /5 LEFT and +2/5 RIGHT dorsalis pedis pulses palpated. +5/5 strength noted in UE /LE bilaterally. NEUROLOGIC - Cranial nerves II through XII grossly intact. PSYCH - A&Ox3 and cooperates fully with examiner. Current SOFA Score SOFA Score Response (Comments) Value Platelets (x10) > 150 0 Bilirubin (mg/dL) < 1.2 0 [place] Coma Score 15 0 Level of Hypotension Dopamine < 5 mcq / dobutamine 2 Creatinine (mg/dL) 1.2 - 1.9 1 Total 3 Assessment & Plan Reason Critically Ill: 62-year-old female on Winston-Synephrine drip status post LEFT femoropopliteal bypass. Hyperglycemic status post procedure. Neuro - * CAM ICU: NEGATIVE * Pain control s/p surgery: * Pain well controlled with IV Fentanyl and oral Percocet. Cardiac - * Postoperative Hypotension/Tachycardia: * Currently off Winston-Synephrine drip. * Will d/c RIGHT Brachial A. Line. * History of CABGx3, 10 years ago at [facility]: * Will continue Plavix/ASA/Lipitor. * Will restart other home Rx as BP tolerates. * Will monitor on telemetry. * EKGs for any c/o chest pain. Respiratory - * No known history of pulmonary disease. * Will provide supplemental O2 in the postoperative setting. * Titrate down as tolerated. * Monitor pulse oximetry. GI - * Prevacid 15 mg PO while in hospital for h/o GERD. * h/o IBS/Chronic Constipation * On Linzess at home - not on formulary. * Bowel regime as needed - especially in the setting of narcotic pain Rx use. * Bowel movement yesterday. RENAL/LYTES - * DARÍO with creatinine of 1.9 today. * Discontinue Normosol - tolerating PO food/fluids well. * Will monitor lytes - replace appropriately. - * Brunner Catheter in place. * d/c later in day of doing well OOB. * Strict I&Os. ENDO - * T2DM: * Appreciate glycemic consultation. * Will transition off insulin gtt as tolerated. * Did receive 50 mg PO Prednisone which will likely continue to elevate BSGs for the next 48 hours or so. HEME - * Will monitor H&H in the setting of postoperative hypotension/tachycardia. * No obvious bleeding at this point. * Spoke with Dr. Gonzalez this AM. Will transfuse 2 U PRBCs in the setting of anemia postoperatively. ID - * No findings of infection at this point. * Monitor fever curve. LINES/IV ACCESS - * PIVs intact. * Brunner Catheter in place. DVT PROPHYLAXIS - * Lovenox 30 mg sq. I have personally spent 35 minutes of critical care time in the direct management of this patient. This is a life/limb threatening event. This includes time spent evaluating patient, direct bedside care, chart review, placing orders, interpretation of diagnostic studies, discussion with consultants, patient, and family members, as well as other required patient management activities. This time is exclusive of all separately billable procedures, and teaching time and separate from and in addition to any other critical care service time. Thank you for this consultation allow us to be part of this patient's care. Please refer to my attending physician's documentation for any further recommendations. I have personally evaluated and examined this patient. I agree with assessment and plan of Laura Gilbert PA-C. Patient required vasopressors greater than 12 hours, given one time dose of prednisone secondary to cortisol being 19. Consideration of a relative adrenal insufficiency. Patient requires continued IV insulin for poorly controlled hyperglycemia. Consults & Procedures Consultants: Attending: Dr. Gonzalez Mobility Developer: Dr. Noel Procedures: RIGHT Brachial Arterial Line Data Medications: Current Inpatient Medications Medications (Trade) Dose Ordered Sig/Damion Route Start Time Stop Time Status Last Admin Dose Admin Acetaminophen (Tylenol Tab) 650 mg Q4H PRN PO 05/03/17 15:00 06/02/17 14:59 Oxycodone/ Acetaminophen (Percocet 5-325mg Tab) `1-2 TABS FOR MODER... Q4H PRN PO 05/03/17 15:00 05/17/17 14:59 05/04/17 04:07 2 TAB Ondansetron HCl (Zofran Inj) 4 mg Q6H PRN IV 05/03/17 15:00 06/02/17 14:59 05/03/17 21:41 4 MG Aspirin (Ecotrin Tab) 81 mg QAM PO 05/04/17 09:00 06/03/17 08:59 05/04/17 08:36 81 MG Atorvastatin Calcium (Lipitor Tab) 80 mg DAILY PO 05/04/17 09:00 06/03/17 08:59 05/04/17 08:37 80 MG Clopidogrel Bisulfate (plAVix TAB) 75 mg DAILY PO 05/04/17 09:00 06/03/17 08:59 05/04/17 10:16 75 MG Furosemide (Lasix Tab) 40 mg DAILY PO 05/04/17 09:00 06/03/17 08:59 Levothyroxine Sodium (Synthroid Tab) 200 mcg DAILYBB PO 05/04/17 06:00 06/03/17 05:59 05/04/17 06:17 200 MCG Metoprolol Tartrate (Lopressor Tab) 25 mg BID PO 05/03/17 21:00 06/02/17 20:59 Nitroglycerin (Nitrostat Tab) 0.4 mg PRN UT 05/03/17 15:00 06/02/17 14:59 Olmesartan (Benicar Tab) 40 mg DAILY PO 05/04/17 09:00 06/03/17 08:59 Albuterol/ Ipratropium (Combivent Respimat Inh) 1 puffs QID INH 05/03/17 21:00 06/02/17 20:59 05/04/17 08:35 1 PUFFS Glucose (Glucose 40% Gel) 15-30 GRAMS 15 GRAMS... UD PRN PO 05/03/17 15:00 06/02/17 14:59 Glucose (Glucose Chew Tab) 4-8 Tablets 4 Tabl... UD PRN PO 05/03/17 15:00 06/02/17 14:59 Dextrose (Dextrose 50% 50ML Syringe) 25-50ML OF 50% DW IV FOR... UD PRN IV 05/03/17 15:00 06/02/17 14:59 Glucagon (Glucagon Inj) 1 mg UD PRN SQ 05/03/17 15:00 06/02/17 14:59 Lansoprazole (Prevacid Solutab) 15 mg DAILY PO 05/04/17 09:00 06/03/17 08:59 05/04/17 08:37 15 MG Fentanyl Citrate (Fentanyl Inj) 100 mcg Q2H PRN IV 05/03/17 17:45 05/17/17 17:44 05/04/17 07:49 100 MCG Parenteral Electrolyte Solution 1,000 ml @ 125 mls/hr Q8H IV 05/03/17 18:30 06/02/17 18:29 05/04/17 02:29 125 MLS/HR Insulin Human Regular 250 units/ Sodium Chloride 252.5 ml @ 0 mls/hr DAILY@1130 IV 05/03/17 18:50 05/04/17 15:00 05/03/17 19:33 3.4 MLS/HR Insulin Aspart (novoLOG ASPART) SLIDING [facility] 05/03/17 21:00 05/04/17 15:00 Hydrochlorothiazide (Hydrochlorothiazide Tab) 12.5 mg DAILY PO 05/04/17 09:00 06/03/17 08:59 Phenylephrine HCl 20 mg/Sodium Chloride 502 ml @ 0 mls/hr Q0M PRN IV 05/03/17 22:30 06/02/17 22:29 05/03/17 23:44 101 MLS/HR Enoxaparin Sodium (Lovenox Inj) 40 mg DAILY SQ 05/04/17 11:00 06/03/17 10:59 05/04/17 10:37 40 MG Miscellaneous Information (Consult Glycemic Management Pharmacy) 1 ea UD PRN N/A 05/04/17 10:15 06/03/17 10:14 I & O: 24-Hour Column 05/05/17 08:00 Intake Total 310 ml Balance 310 ml Vital Signs: Date Time Temp Pulse Resp B/P (MAP) Pulse Ox O2 Delivery O2 Flow Rate FiO2 05/04/17 10:35 36.6 101 17 108/50 95 2.0 05/04/17 10:10 36.6 94 14 108/50 95 2.0 05/04/17 10:00 36.6 91 13 96/58 (71) 94 Nasal Cannula 2.0 05/04/17 08:57 36.4 99 15 88/25 92 2.0 05/04/17 08:41 36.8 99 13 82/35 93 2.0 05/04/17 08:00 96 Nasal Cannula 2.0 05/04/17 08:00 36.6 98 22 97/44 (61) 92 Nasal Cannula 2.0 05/04/17 06:00 91 14 105/44 (64) 96 Nasal Cannula 2.0 05/04/17 04:00 95 Nasal Cannula 2.0 05/04/17 04:00 36.8 97 15 96/41 (59) 95 Nasal Cannula 2.0 05/04/17 02:00 87 14 121/47 (71) 96 Nasal Cannula 2.0 05/04/17 00:01 36.6 85 14 124/41 (68) 97 Nasal Cannula 2.0 05/03/17 23:59 97 Nasal Cannula 2.0 05/03/17 22:00 93 12 96/50 (65) 96 Nasal Cannula 2.0 05/03/17 20:00 36.7 95 16 112/53 (72) 96 Nasal Cannula 2.0 05/03/17 20:00 Nasal Cannula 2.0 05/03/17 18:39 36.2 105 19 101/48 96 Nasal Cannula 2.0 05/03/17 18:30 96 15 107/53 (65) 96 110/34 05/03/17 18:15 105 21 (60) 97 110/38 05/03/17 18:12 107 19 130/113 (116) 97 94/29 05/03/17 18:00 110 17 94 05/03/17 17:33 101/48 (70) 05/03/17 17:22 100 15 05/03/17 17:22 99 15 124/41 99 05/03/17 17:21 124/64 05/03/17 17:17 99 14 121/39 99 05/03/17 17:17 99 14 05/03/17 17:15 122/59 05/03/17 17:12 98 16 121/40 99 05/03/17 17:12 99 16 05/03/17 17:11 104/52 05/03/17 17:07 98 15 05/03/17 17:07 98 15 116/38 99 05/03/17 17:06 114/54 05/03/17 17:05 97 16 05/03/17 17:05 98 16 114/54 99 Nasal Cannula 4 114/38 (62) 05/03/17 17:05 97 16 113/38 99 05/03/17 17:00 100 16 119/54 99 05/03/17 17:00 100 16 05/03/17 16:56 101/63 05/03/17 16:55 98 15 107/37 98 05/03/17 16:55 98 15 05/03/17 16:55 98 15 101/63 99 Nasal Cannula 4 110/37 (60) 05/03/17 16:51 118/53 05/03/17 16:50 97 15 05/03/17 16:50 97 15 107/36 98 05/03/17 16:46 118/64 05/03/17 16:45 108 19 107/38 98 05/03/17 16:45 108 19 118/64 99 Nasal Cannula 4 107/38 (60) 05/03/17 16:45 108 19 05/03/17 16:41 116/52 05/03/17 16:40 110 20 107/39 99 05/03/17 16:40 101 20 05/03/17 16:36 114/56 05/03/17 16:35 102 19 114/56 99 Nasal Cannula 4 106/37 (58) 05/03/17 16:35 102 19 05/03/17 16:35 102 19 106/37 99 05/03/17 16:30 102 19 05/03/17 16:30 102 19 106/53 98 05/03/17 16:25 100 18 102/55 99 05/03/17 16:25 100 18 05/03/17 16:25 100 18 102/55 99 Nasal Cannula 4 107/36 (58) 05/03/17 16:21 109/50 05/03/17 16:20 101 19 105/36 100 05/03/17 16:20 101 18 104/35 99 05/03/17 16:17 112/51 05/03/17 16:16 99/58 05/03/17 16:15 101 18 05/03/17 16:15 36.8 101 18 99/58 99 Nasal Cannula 4 106/35 (57) 05/03/17 16:15 101 18 106/35 99 05/03/17 16:10 102 18 121/52 99 05/03/17 16:10 102 18 05/03/17 16:06 105/47 05/03/17 16:05 98 18 05/03/17 16:05 100 18 105/47 100 Nasal Cannula 4 103/35 (56) 05/03/17 16:05 98 18 103/34 100 05/03/17 16:01 117/58 05/03/17 16:00 96 19 109/35 97 05/03/17 16:00 96 19 05/03/17 15:56 124/60 05/03/17 15:55 95 19 05/03/17 15:55 94 19 123/37 100 05/03/17 15:55 92 19 124/60 98 Oxymask 10 121/37 (65) 05/03/17 15:51 138/55 05/03/17 15:50 88 19 132/39 97 05/03/17 15:50 88 19 05/03/17 15:46 126/53 05/03/17 15:45 92 19 05/03/17 15:45 92 19 120/38 98 05/03/17 15:45 92 19 126/53 98 Oxymask 10 121/38 (64) 05/03/17 15:41 107/62 05/03/17 15:40 97 19 102/35 98 05/03/17 15:40 98 19 05/03/17 15:36 83/53 05/03/17 15:35 116 22 96/45 97 05/03/17 15:35 117 22 05/03/17 15:35 118 14 83/53 99 Oxymask 10 81/34 (49) 05/03/17 15:30 109 22 110/56 98 05/03/17 15:30 109 22 05/03/17 15:26 78/56 05/03/17 15:25 112 21 78/37 98 05/03/17 15:25 114 21 05/03/17 15:25 111 24 78/56 98 Oxymask 10 84/38 (53) 05/03/17 15:23 90/47 05/03/17 15:21 86/60 05/03/17 15:20 114 21 99 05/03/17 15:20 114 21 05/03/17 15:16 106/82 05/03/17 15:15 120 18 106/82 97 Oxymask 10 05/03/17 15:10 116 20 05/03/17 15:10 116 20 108/56 97 05/03/17 15:06 90/68 05/03/17 15:05 108 21 05/03/17 15:05 36.4 100 12 68 97 Oxymask 10 05/03/17 15:05 107 21 99 Laboratory Results: Last 24 Hours Test 05/03/17 15:07 05/03/17 15:21 05/03/17 15:28 05/03/17 15:48 Bedside Glucose 394 mg/dl 396 mg/dl White Blood Count 8.87 K/uL Red Blood Count 3.46 M/uL Hemoglobin 10.2 g/dL Hematocrit 31.2 % Mean Corpuscular Volume 90.2 fL Mean Corpuscular Hemoglobin 29.5 pg Mean Corpuscular Hemoglobin Concent 32.7 g/dl Platelet Count 300 K/uL Mean Platelet Volume 9.2 fL Neutrophils (%) (Auto) 68.7 % Lymphocytes (%) (Auto) 16.3 % Monocytes (%) (Auto) 13.8 % Eosinophils (%) (Auto) 0.3 % Basophils (%) (Auto) 0.6 % Neutrophils # (Auto) 6.09 K/uL Lymphocytes # (Auto) 1.45 K/uL Monocytes # (Auto) 1.22 K/uL Eosinophils # (Auto) 0.03 K/uL Basophils # (Auto) 0.05 K/uL RDW Standard Deviation 46.8 fL RDW Coefficient of Variation 14.2 % Immature Granulocyte % (Auto) 0.3 % Immature Granulocyte # (Auto) 0.03 K/uL Sodium Level 138 mmol/L Potassium Level 5.1 mmol/L Chloride Level 108 mmol/L Carbon Dioxide Level 21 mmol/L Anion Gap 9.0 mmol/L 19.0 mmol/L Blood Urea Nitrogen 23 mg/dl Creatinine 1.50 mg/dl Est Creatinine Clear Calc Drug Dose 43.4 ml/min Estimated GFR () 42.5 Estimated GFR (Non- 36.7 BUN/Creatinine Ratio 15.0 Random Glucose 395 mg/dl Calcium Level 8.2 mg/dl Beta-Hydroxybutyric Acid 2.88 mg/dL Bedside Hemoglobin 9.2 g/dl Bedside Hematocrit 27 % Bedside Sodium 138 mEq/L Bedside Potassium 4.9 mEq/L Bedside Chloride 104 mEq/L Bedside Total CO2 21 mEq/l Bedside Blood Urea Nitrogen 22 mg/dl Bedside Creatinine 1.4 mg/dl Bedside Glucose (other) 424 mg/dl Bedside Ionized Calcium (Joesph) 1.11 mmol/l Test 05/03/17 16:36 05/03/17 18:17 05/03/17 20:27 05/03/17 21:29 Bedside Glucose 376 mg/dl 356 mg/dl 377 mg/dl 378 mg/dl Test 05/03/17 22:29 05/03/17 23:39 05/04/17 00:43 05/04/17 01:36 Bedside Glucose 333 mg/dl 324 mg/dl 293 mg/dl 225 mg/dl Test 05/04/17 02:34 05/04/17 03:42 05/04/17 04:40 05/04/17 05:37 Bedside Glucose 231 mg/dl 177 mg/dl 119 mg/dl White Blood Count 10.13 K/uL Red Blood Count 2.51 M/uL Hemoglobin 7.5 g/dL Hematocrit 22.6 % Mean Corpuscular Volume 90.0 fL Mean Corpuscular Hemoglobin 29.9 pg Mean Corpuscular Hemoglobin Concent 33.2 g/dl Platelet Count 252 K/uL Mean Platelet Volume 9.3 fL Neutrophils (%) (Auto) 64.0 % Lymphocytes (%) (Auto) 18.8 % Monocytes (%) (Auto) 16.2 % Eosinophils (%) (Auto) 0.2 % Basophils (%) (Auto) 0.4 % Neutrophils # (Auto) 6.49 K/uL Lymphocytes # (Auto) 1.90 K/uL Monocytes # (Auto) 1.64 K/uL Eosinophils # (Auto) 0.02 K/uL Basophils # (Auto) 0.04 K/uL RDW Standard Deviation 48.6 fL RDW Coefficient of Variation 14.6 % Immature Granulocyte % (Auto) 0.4 % Immature Granulocyte # (Auto) 0.04 K/uL Red Blood Cell Morphology Unremarkable Sodium Level 137 mmol/L Potassium Level 4.7 mmol/L Chloride Level 106 mmol/L Carbon Dioxide Level 24 mmol/L Anion Gap 7.0 mmol/L Blood Urea Nitrogen 29 mg/dl Creatinine 1.90 mg/dl Est Creatinine Clear Calc Drug Dose 34.9 ml/min Estimated GFR () 32.0 Estimated GFR (Non- 27.6 BUN/Creatinine Ratio 15.2 Random Glucose 106 mg/dl Calcium Level 7.4 mg/dl Phosphorus Level 4.5 mg/dl Magnesium Level 1.7 mg/dl Test 05/04/17 05:40 05/04/17 06:43 05/04/17 07:35 05/04/17 07:38 Bedside Glucose 124 mg/dl 142 mg/dl 147 mg/dl Random Cortisol 19.17 mcg/dl
--- NOTE | 2017-05-04 14:59 | Progress Note ---
Progress Note Date of Service: May 04, 2017. Subjective 62 yo f with multiple medical problems, POD #1 after LLE fem-pop BPG, seen in f/ u today. Pt admits pain in L thigh/upper leg, but states no longer any pain in L foot. Admits malaise, fatigue. Denies other complaints. Pt anemic at 7.5 this AM, transfused 2 U PRBC with improvement in VS. Remains on Winston synephrine. Objective Vital Signs Vital Signs Past 12 Hours Date Time Temp Pulse Resp B/P (MAP) Pulse Ox O2 Delivery O2 Flow Rate FiO2 05/04/17 14:00 88 15 121/43 (69) 90 Nasal Cannula 2.0 05/04/17 13:20 100 92 05/04/17 12:00 94 Nasal Cannula 2.0 05/04/17 12:00 36.6 87 16 124/55 (78) 94 Nasal Cannula 2.0 05/04/17 10:35 36.6 101 17 108/50 95 2.0 05/04/17 10:10 36.6 94 14 108/50 95 2.0 05/04/17 10:00 36.6 91 13 96/58 (71) 94 Nasal Cannula 2.0 05/04/17 08:57 36.4 99 15 88/25 92 2.0 05/04/17 08:41 36.8 99 13 82/35 93 2.0 05/04/17 08:00 96 Nasal Cannula 2.0 05/04/17 08:00 Nasal Cannula 05/04/17 08:00 36.6 98 22 97/44 (61) 92 Nasal Cannula 2.0 05/04/17 06:00 91 14 105/44 (64) 96 Nasal Cannula 2.0 05/04/17 04:00 95 Nasal Cannula 2.0 05/04/17 04:00 36.8 97 15 96/41 (59) 95 Nasal Cannula 2.0 Exam CONST: A&O x4, NAD, pale, chronically ill appearing female CHEST: RRR lungs decreased, with sparse wheezing ABD: soft, nontender, + bs x 4 quad EXT: LLE incisions C/I with brianda, shadowing on dressing. + local tenderness and edema/hematoma at groin. Foot warm and pink, brisk cap refill, + doppler distal DP. Intake & Output 8-Hour Column 05/04/17 05/04/17 05/05/17 15:59 23:59 07:59 Intake Total 1938 ml Output Total 200 ml Balance 1738 ml 24-Hour Column 05/05/17 07:59 Intake Total 1938 ml Output Total 200 ml Balance 1738 ml Laboratory and Microbiology Results Past 24 Hours Test 05/03/17 15:07 05/03/17 15:21 05/03/17 15:28 05/03/17 15:48 Range/Units Bedside Glucose 394 396 70-90 mg/dl White Blood Count 8.87 4.8-10.8 K/uL Red Blood Count 3.46 4.2-5.4 M/uL Hemoglobin 10.2 12.0-16.0 g/dL Hematocrit 31.2 37-47 % Mean Corpuscular Volume 90.2 80-100 fL Mean Corpuscular Hemoglobin 29.5 25-34 pg Mean Corpuscular Hemoglobin Concent 32.7 32-36 g/dl Platelet Count 300 130-400 K/uL Mean Platelet Volume 9.2 7.4-10.4 fL Neutrophils (%) (Auto) 68.7 % Lymphocytes (%) (Auto) 16.3 % Monocytes (%) (Auto) 13.8 % Eosinophils (%) (Auto) 0.3 % Basophils (%) (Auto) 0.6 % Neutrophils # (Auto) 6.09 1.4-6.5 K/uL Lymphocytes # (Auto) 1.45 1.2-3.4 K/uL Monocytes # (Auto) 1.22 0.11-0.59 K/uL Eosinophils # (Auto) 0.03 0-0.5 K/uL Basophils # (Auto) 0.05 0-0.2 K/uL RDW Standard Deviation 46.8 36.4-46.3 fL RDW Coefficient of Variation 14.2 11.5-14.5 % Immature Granulocyte % (Auto) 0.3 % Immature Granulocyte # (Auto) 0.03 0.00-0.02 K/uL Sodium Level 138 136-145 mmol/L Potassium Level 5.1 3.5-5.1 mmol/L Chloride Level 108 98-107 mmol/L Carbon Dioxide Level 21 21-32 mmol/L Anion Gap 9.0 19.0 16-25 mmol/L Blood Urea Nitrogen 23 7-18 mg/dl Creatinine 1.50 0.60-1.20 mg/dl Est Creatinine Clear Calc Drug Dose 43.4 ml/min Estimated GFR () 42.5 Estimated GFR (Non- 36.7 BUN/Creatinine Ratio 15.0 10-20 Random Glucose 395 70-99 mg/dl Calcium Level 8.2 8.5-10.1 mg/dl Beta-Hydroxybutyric Acid 2.88 0.2-2.81 mg/dL Bedside Hemoglobin 9.2 12.0-16.0 g/dl Bedside Hematocrit 27 37-47 % Bedside Sodium 138 135-144 mEq/L Bedside Potassium 4.9 3.3-5.0 mEq/L Bedside Chloride 104 101-112 mEq/L Bedside Total CO2 21 24-31 mEq/l Bedside Blood Urea Nitrogen 22 7-18 mg/dl Bedside Creatinine 1.4 0.6-1.3 mg/dl Bedside Glucose (other) 424 70-99 mg/dl Bedside Ionized Calcium (Joesph) 1.11 1.12-1.32 mmol/l Test 05/03/17 16:36 05/03/17 18:17 05/03/17 20:27 05/03/17 21:29 Range/Units Bedside Glucose 376 356 377 378 70-90 mg/dl Test 05/03/17 22:29 05/03/17 23:39 05/04/17 00:43 05/04/17 01:36 Range/Units Bedside Glucose 333 324 293 225 70-90 mg/dl Test 05/04/17 02:34 05/04/17 03:42 05/04/17 04:40 05/04/17 05:37 Range/Units Bedside Glucose 231 177 119 70-90 mg/dl White Blood Count 10.13 4.8-10.8 K/uL Red Blood Count 2.51 4.2-5.4 M/uL Hemoglobin 7.5 12.0-16.0 g/dL Hematocrit 22.6 37-47 % Mean Corpuscular Volume 90.0 80-100 fL Mean Corpuscular Hemoglobin 29.9 25-34 pg Mean Corpuscular Hemoglobin Concent 33.2 32-36 g/dl Platelet Count 252 130-400 K/uL Mean Platelet Volume 9.3 7.4-10.4 fL Neutrophils (%) (Auto) 64.0 % Lymphocytes (%) (Auto) 18.8 % Monocytes (%) (Auto) 16.2 % Eosinophils (%) (Auto) 0.2 % Basophils (%) (Auto) 0.4 % Neutrophils # (Auto) 6.49 1.4-6.5 K/uL Lymphocytes # (Auto) 1.90 1.2-3.4 K/uL Monocytes # (Auto) 1.64 0.11-0.59 K/uL Eosinophils # (Auto) 0.02 0-0.5 K/uL Basophils # (Auto) 0.04 0-0.2 K/uL RDW Standard Deviation 48.6 36.4-46.3 fL RDW Coefficient of Variation 14.6 11.5-14.5 % Immature Granulocyte % (Auto) 0.4 % Immature Granulocyte # (Auto) 0.04 0.00-0.02 K/uL Red Blood Cell Morphology Unremarkable Sodium Level 137 136-145 mmol/L Potassium Level 4.7 3.5-5.1 mmol/L Chloride Level 106 98-107 mmol/L Carbon Dioxide Level 24 21-32 mmol/L Anion Gap 7.0 3-11 mmol/L Blood Urea Nitrogen 29 7-18 mg/dl Creatinine 1.90 0.60-1.20 mg/dl Est Creatinine Clear Calc Drug Dose 34.9 ml/min Estimated GFR () 32.0 Estimated GFR (Non- 27.6 BUN/Creatinine Ratio 15.2 10-20 Random Glucose 106 70-99 mg/dl Calcium Level 7.4 8.5-10.1 mg/dl Phosphorus Level 4.5 2.5-4.9 mg/dl Magnesium Level 1.7 1.8-2.4 mg/dl Test 05/04/17 05:40 05/04/17 06:43 05/04/17 07:35 05/04/17 07:38 Range/Units Bedside Glucose 124 142 147 70-90 mg/dl Random Cortisol 19.17 mcg/dl ASSESSMENT and PLAN: s/p LLE fem-pop BPG Severe PAD with arterial occlusion and rest pain Post op anemia Pt doing as expected post op. Hopefully will be able to D/C winston drip over next 24 hrs. Continue to monitor.
[2017-05-04] MEDS ORDERED: DC IV INSULIN INFUSION ONE (15:00)
[2017-05-04] MEDS: INSULIN DETEMIR FLEXPEN/FLEX TOUCH 100 UNITS/ML 3ML SC SCH (20:26)
[2017-05-05] VITALS (9 sets, daily range): BP systolic 113–173; BP diastolic 43–72; PULSE 70–96; TEMP 36.6–37.4; O2SAT 93–100
[2017-05-05] MEDS: INSULIN ASPART 100 UNITS/ML 3 ML PEN SC SCH ×5 (03:58→20:02)
[2017-05-05] MEDS: LEVOTHYROXINE 200 MCG TAB PO SCH (06:22)
[2017-05-05] MEDS: INSULIN DETEMIR FLEXPEN/FLEX TOUCH 100 UNITS/ML 3ML SC SCH ×2 (08:04→20:02)
[2017-05-05] MEDS: LANSOPRAZOLE SOLUTAB 15 MG PO SCH (08:05)
[2017-05-05] MEDS: ATORVASTATIN 40 MG TAB PO SCH (08:05)
[2017-05-05] MEDS: ASPIRIN 81 MG ECTAB PO SCH (08:05)
[2017-05-05] MEDS: CLOPIDOGREL BISULFATE 75 MG TAB PO SCH (08:05)
[2017-05-05] MEDS: FUROSEMIDE 40 MG TAB PO SCH (08:06)
[2017-05-05] MEDS: IPRATROPIUM BROMIDE/ALBUTEROL respimat INH INH SCH ×4 (08:06→19:54)
[2017-05-05] MEDS: ENOXAPARIN 40 MG/0.4 ML SYR SQ SCH (08:06)
[2017-05-05 08:20] LABS: BASO % 0.2 %; BASO ABS # 0.02 K/uL (0-0.2); HEMATOCRIT 26.6 % (37-47); IG% 0.5 %; LYMPH % 7.8 %; LYMPH ABS # 1.03 K/uL (1.2-3.4); MEAN CELL VOLUME 88.4 fL (80-100); MEAN CORPUSCULAR HEMOGLOBIN 29.2 pg (25-34); MEAN CORPUSCULAR HGB CONC 33.1 g/dl (32-36); MEAN PLATELET VOLUME 9.1 fL (7.4-10.4); MONO % 6.7 %; NEUT % 84.8 %; PLATELET COUNT 212 K/uL (130-400); RED BLOOD COUNT 3.01 M/uL (4.2-5.4); WHITE BLOOD COUNT 13.22 K/uL (4.8-10.8)
[2017-05-05] MEDS: OXYCODONE/ACETAMINOPHEN 5-325 TAB PO PRN ×2 (08:25→19:54)
[2017-05-05 08:50] LABS: COMPLETE YES
[2017-05-05 08:57] LABS: BUN/CREATININE RATIO 20.4 (10-20); CALCIUM 8.2 mg/dl (8.5-10.1); CREATININE 1.6 mg/dl (0.60-1.20); POTASSIUM 5.1 mmol/L (3.5-5.1)
[2017-05-05] MEDS: METOPROLOL TARTRATE 25 MG TAB PO SCH ×2 (09:17→19:55)
[2017-05-05] MEDS: OLMESARTAN MEDOXOMIL 40 MG TAB PO SCH (09:17)
[2017-05-05] MEDS: HYDROCHLOROTHIAZIDE 25 MG TAB PO SCH (09:17)
--- NOTE | 2017-05-05 09:51 | Progress Note ---
Progress Note Date of Service: May 05, 2017. Subjective 62 yo f with multiple medical problems, POD #2 after LLE fem-pop BPG, seen in f/ u today. Pt admits mid sternal chest pain/pressure and L jaw pain that began just prior to my entering the room. Pt admits pain in L groin/thigh, but states L foot no pain at all. Admits malaise, states she is ready to go home. Objective Vital Signs Vital Signs Past 12 Hours Date Time Temp Pulse Resp B/P (MAP) Pulse Ox O2 Delivery O2 Flow Rate FiO2 05/05/17 08:00 36.6 94 22 153/60 (91) 94 Nasal Cannula 2.0 05/05/17 08:00 Nasal Cannula 2.0 05/05/17 06:00 78 18 131/52 (78) 96 Nasal Cannula 2.0 05/05/17 04:00 36.9 70 14 119/50 (73) 95 Nasal Cannula 2.0 05/05/17 04:00 Nasal Cannula 2.0 05/05/17 02:00 70 14 116/48 (70) 96 Nasal Cannula 2.0 05/05/17 00:00 Nasal Cannula 2.0 05/05/17 00:00 36.8 70 14 113/43 (66) 96 Nasal Cannula 2.0 05/04/17 22:00 81 14 117/47 (70) 94 Nasal Cannula 2.0 Exam CONST: A&O x4, NAD, pale, chronically ill appearing female CHEST: nontender, RRR lungs decreased with sparse wheezes ABD: soft, nontender, + bs x 4 quad EXT: mild edema noted. LLE incisions C/D/I with brianda. + local tenderness, ecchymosis and edema. No erythema. Foot pulses + with doppler. Foot warm and pink Laboratory and Microbiology Results Past 24 Hours Test 05/04/17 10:31 05/04/17 11:27 05/04/17 12:30 05/04/17 13:44 Range/Units Bedside Glucose 127 112 126 135 70-90 mg/dl Test 05/04/17 15:51 05/04/17 20:09 05/04/17 23:51 05/05/17 03:53 Range/Units Bedside Glucose 171 247 223 178 70-90 mg/dl Test 05/05/17 06:31 05/05/17 08:05 9/14/17 09:20 Range/Units Bedside Glucose 170 70-90 mg/dl White Blood Count 13.22 4.8-10.8 K/uL Red Blood Count 3.01 4.2-5.4 M/uL Hemoglobin 8.8 12.0-16.0 g/dL Hematocrit 26.6 37-47 % Mean Corpuscular Volume 88.4 80-100 fL Mean Corpuscular Hemoglobin 29.2 25-34 pg Mean Corpuscular Hemoglobin Concent 33.1 32-36 g/dl Platelet Count 212 130-400 K/uL Mean Platelet Volume 9.1 7.4-10.4 fL Neutrophils (%) (Auto) 84.8 % Lymphocytes (%) (Auto) 7.8 % Monocytes (%) (Auto) 6.7 % Eosinophils (%) (Auto) 0.0 % Basophils (%) (Auto) 0.2 % Neutrophils # (Auto) 11.22 1.4-6.5 K/uL Lymphocytes # (Auto) 1.03 1.2-3.4 K/uL Monocytes # (Auto) 0.88 0.11-0.59 K/uL Eosinophils # (Auto) 0.00 0-0.5 K/uL Basophils # (Auto) 0.02 0-0.2 K/uL RDW Standard Deviation 51.9 36.4-46.3 fL RDW Coefficient of Variation 16.0 11.5-14.5 % Immature Granulocyte % (Auto) 0.5 % Immature Granulocyte # (Auto) 0.07 0.00-0.02 K/uL Sodium Level 133 136-145 mmol/L Potassium Level 5.1 3.5-5.1 mmol/L Chloride Level 103 98-107 mmol/L Carbon Dioxide Level 25 21-32 mmol/L Anion Gap 5.0 3-11 mmol/L Blood Urea Nitrogen 33 7-18 mg/dl Creatinine 1.60 0.60-1.20 mg/dl Est Creatinine Clear Calc Drug Dose 42.0 ml/min Estimated GFR () 39.3 Estimated GFR (Non- 33.9 BUN/Creatinine Ratio 20.4 10-20 Random Glucose 224 70-99 mg/dl Calcium Level 8.2 8.5-10.1 mg/dl Phosphorus Level 4.0 2.5-4.9 mg/dl Magnesium Level 2.0 1.8-2.4 mg/dl Total Bilirubin 0.4 0.2-1 mg/dl Direct Bilirubin 0.1 0-0.2 mg/dl Aspartate Amino Transf (AST/SGOT) 48 15-37 U/L Alanine Aminotransferase (ALT/SGPT) 101 12-78 U/L Alkaline Phosphatase 199 45-117 U/L Total Protein 5.4 6.4-8.2 gm/dl Albumin 2.2 3.4-5.0 gm/dl Creatine Kinase MB Ratio 0-3.0 ASSESSMENT and PLAN: s/p LLE fem-pop BPG Severe PAD with arterial occlusion and rest pain Expected post op anemia- improved since transfusion yesterday Chest pain Pt VSS. At time of this note, chest pain resolved without treatment( lasted 20-30 min). Pt's chest discomfort nonreproducible, EKG ordered. After discussion with Dr Gonzalez, recommends draw cardiac enzymes and chest x ray as well. Will consult hospitalist for medical management and to assist in determining fitness for transfer to tele unit.
--- NOTE | 2017-05-05 10:01 | DIAGNOSTIC IMAGING REPORT ---
CHEST ONE VIEW PORTABLE CLINICAL HISTORY: 62 years-old Female presenting with chest pain. TECHNIQUE: Portable upright AP view of the chest was obtained. COMPARISON: 05/02/2017. FINDINGS: Atherosclerosis of the aorta. Normal cardiac silhouette size. Mediastinal clip also noted. Lungs and pleural spaces clear. Osseous structures normal. Cholecystectomy clips noted. IMPRESSION: 1. No acute cardiopulmonary disease. Electronically signed by: Choco Velasco M.D. 05/05/2017 10:00 AM Dictated Date/Time: 05/05/2017 9:57 AM
[2017-05-05 10:43] LABS: CKMB/CK RATIO 1.3 (0-3.0)
--- NOTE | 2017-05-05 11:16 | Medical Consult ---
Consultation Date of Consultation: May 05, 2017. Attending Physician: Tony Gonzalez M.D. Reason for Consultation: Chest Pain History of Present Illness This is a 62 year old female with a PMH of CAD s/p CABGx3, HTN, insulin dependent DM2, COPD, hypothyroidism, aortic stenosis and severe peripheral vascular disease and claudication for which she presented to the hospital to undergo fem-pop bypass of the LLE. This was done and she was placed in the ICU to receive vasopressors while she was hypotensive post-operatively. This was recently stopped and she was doing well, until this morning (05/05) when she developed some chest pain. Due to her CAD history, an EKG, cardiac enzymes and CXR were obtained. By the time I saw the patient in room 107, she stated that the chest pain went away, she had no shortness of breath (currently on 2L supplemental O2 via NC) - is c/o pain in the LLE, somewhat lethargic, but overall, she states she's doing well. Social History Smoking Status: Current Every Day Smoker Smokeless Tobacco Use: No Alcohol Use: none Drug Use: none Marital Status: Housing Status: lives with family Occupation Status: disabled Allergies Coded Allergies: Amlodipine (Verified Allergy, Intermediate, ?, 05/03/17) Lisinopril (Verified Allergy, Intermediate, ?, 05/03/17) Penicillins (Verified Allergy, Unknown, BUMPY RASH, 05/03/17) Current Inpatient Medications Current Inpatient Medications Medications (Trade) Dose Ordered Sig/Damion Route Start Time Stop Time Status Last Admin Dose Admin Acetaminophen (Tylenol Tab) 650 mg Q4H PRN PO 05/03/17 15:00 06/02/17 14:59 Oxycodone/ Acetaminophen (Percocet 5-325mg Tab) `1-2 TABS FOR MODER... Q4H PRN PO 05/03/17 15:00 05/17/17 14:59 05/05/17 08:25 2 TAB Ondansetron HCl (Zofran Inj) 4 mg Q6H PRN IV 05/03/17 15:00 06/02/17 14:59 05/03/17 21:41 4 MG Aspirin (Ecotrin Tab) 81 mg QAM PO 05/04/17 09:00 06/03/17 08:59 05/05/17 08:05 81 MG Atorvastatin Calcium (Lipitor Tab) 80 mg DAILY PO 05/04/17 09:00 06/03/17 08:59 05/05/17 08:05 80 MG Clopidogrel Bisulfate (plAVix TAB) 75 mg DAILY PO 05/04/17 09:00 06/03/17 08:59 05/05/17 08:05 75 MG Furosemide (Lasix Tab) 40 mg DAILY PO 05/04/17 09:00 06/03/17 08:59 05/05/17 08:06 40 MG Levothyroxine Sodium (Synthroid Tab) 200 mcg DAILYBB PO 05/04/17 06:00 06/03/17 05:59 05/05/17 06:22 200 MCG Metoprolol Tartrate (Lopressor Tab) 25 mg BID PO 05/03/17 21:00 06/02/17 20:59 05/05/17 09:17 25 MG Nitroglycerin (Nitrostat Tab) 0.4 mg PRN UT 05/03/17 15:00 06/02/17 14:59 Olmesartan (Benicar Tab) 40 mg DAILY PO 05/04/17 09:00 06/03/17 08:59 05/05/17 09:17 40 MG Albuterol/ Ipratropium (Combivent Respimat Inh) 1 puffs QID INH 05/03/17 21:00 06/02/17 20:59 05/05/17 08:06 1 PUFFS Glucose (Glucose 40% Gel) 15-30 GRAMS 15 GRAMS... UD PRN PO 05/03/17 15:00 06/02/17 14:59 Glucose (Glucose Chew Tab) 4-8 Tablets 4 Tabl... UD PRN PO 05/03/17 15:00 06/02/17 14:59 Dextrose (Dextrose 50% 50ML Syringe) 25-50ML OF 50% DW IV FOR... UD PRN IV 05/03/17 15:00 06/02/17 14:59 Glucagon (Glucagon Inj) 1 mg UD PRN SQ 05/03/17 15:00 06/02/17 14:59 Lansoprazole (Prevacid Solutab) 15 mg DAILY PO 05/04/17 09:00 06/03/17 08:59 05/05/17 08:05 15 MG Fentanyl Citrate (Fentanyl Inj) 100 mcg Q2H PRN IV 05/03/17 17:45 05/17/17 17:44 05/04/17 13:50 100 MCG Hydrochlorothiazide (Hydrochlorothiazide Tab) 12.5 mg DAILY PO 05/04/17 09:00 06/03/17 08:59 05/05/17 09:17 12.5 MG Enoxaparin Sodium (Lovenox Inj) 40 mg DAILY SQ 05/04/17 11:00 06/03/17 10:59 05/05/17 08:06 40 MG Miscellaneous Information (Consult Glycemic Management Pharmacy) 1 ea UD PRN N/A 05/04/17 10:15 06/03/17 10:14 Insulin Detemir (Levemir Flexpen/ FlexTouch) SEE PROTOCOL TEXT BID SC 05/04/17 21:00 06/03/17 20:59 05/05/17 08:04 28 UNITS Insulin Aspart (novoLOG ASPART) SLIDING SCALE ACHS SC 05/04/17 16:00 06/03/17 15:59 05/05/17 08:03 16 UNITS Insulin Aspart (novoLOG ASPART) SLIDING SCALE 0000,0400 [place] 05/05/17 00:00 06/04/17 00:00 05/05/17 03:58 3 UNITS Review of Systems Constitutional: No fever, No chills Respiratory: No cough, No sputum, No wheezing, No shortness of breath, No dyspnea on exertion, No dyspnea at rest, No hemoptysis Cardiovascular: + chest pain (improving), + claudication, No edema, No palpitations Abdomen: No pain, No nausea, No vomiting, No diarrhea Musculoskeletal: + joint pain, + muscle pain, + calf pain Genitourinary - Female: No dysuria, No urinary frequency, No urinary urgency, No urinary incontinence, No urinary retention, No hematuria Neurologic: No memory loss, No paralysis Psychiatric: No depression symptoms, No anxiety, No insomnia Endocrine: No fatigue Hematologic / Lymphatic: No abnormal bleeding/bruising Integumentary: No rash Allergic / Immunologic: No environmental allergies, No seasonal allergies Physical Exam Date Time Temp Pulse Resp B/P (MAP) Pulse Ox O2 Delivery O2 Flow Rate FiO2 05/05/17 10:00 96 19 156/57 (90) 93 Nasal Cannula 2.0 05/05/17 08:00 36.6 94 22 153/60 (91) 94 Nasal Cannula 2.0 05/05/17 08:00 Nasal Cannula 2.0 05/05/17 06:00 78 18 131/52 (78) 96 Nasal Cannula 2.0 05/05/17 04:00 36.9 70 14 119/50 (73) 95 Nasal Cannula 2.0 05/05/17 04:00 Nasal Cannula 2.0 05/05/17 02:00 70 14 116/48 (70) 96 Nasal Cannula 2.0 05/05/17 00:00 Nasal Cannula 2.0 05/05/17 00:00 36.8 70 14 113/43 (66) 96 Nasal Cannula 2.0 05/04/17 22:00 81 14 117/47 (70) 94 Nasal Cannula 2.0 05/04/17 20:32 36.9 87 14 123/45 (71) 93 Nasal Cannula 2.0 05/04/17 20:00 Nasal Cannula 2.0 05/04/17 18:00 84 14 134/52 (79) 91 Nasal Cannula 2.0 05/04/17 17:00 101 20 145/53 (83) 97 Nasal Cannula 2.0 05/04/17 16:00 Nasal Cannula 2.0 05/04/17 16:00 36.5 95 20 134/62 (86) 93 Nasal Cannula 2.0 05/04/17 15:31 92 26 105/77 (86) 93 Nasal Cannula 2.0 05/04/17 15:01 90 20 126/38 (67) 92 Nasal Cannula 2.0 05/04/17 14:00 88 15 121/43 (69) 90 Nasal Cannula 2.0 05/04/17 13:20 100 92 05/04/17 12:00 94 Nasal Cannula 2.0 05/04/17 12:00 36.6 87 16 124/55 (78) 94 Nasal Cannula 2.0 05/04/17 10:35 36.6 101 17 108/50 95 2.0 General Appearance: no apparent distress Head: normocephalic, atraumatic Eyes: normal inspection ENT: hearing grossly normal Respiratory/Chest: chest non-tender, lungs clear, normal breath sounds, no respiratory distress, no accessory muscle use Cardiovascular: regular rate, rhythm, no edema, + systolic murmur (+3/6 holosystolic murmur, best heard at the L second intercostal space) Abdomen/GI: normal bowel sounds, non tender, soft Extremities/Musculoskelatal: no calf tenderness, normal capillary refill, no pedal edema, + pertinent finding (moving around her L toes, good refill) Neurologic/Psych: no motor/sensory deficits, alert, normal mood/affect Skin: normal color Lymphatic: no adenopathy Laboratory Results Last 24 Hours Test 05/04/17 10:31 05/04/17 11:27 05/04/17 12:30 05/04/17 13:44 Bedside Glucose 127 mg/dl 112 mg/dl 126 mg/dl 135 mg/dl Test 05/04/17 15:51 05/04/17 20:09 05/04/17 23:51 05/05/17 03:53 Bedside Glucose 171 mg/dl 247 mg/dl 223 mg/dl 178 mg/dl Test 05/05/17 06:31 05/05/17 08:05 05/05/17 09:20 05/05/17 09:46 Bedside Glucose 170 mg/dl White Blood Count 13.22 K/uL Red Blood Count 3.01 M/uL Hemoglobin 8.8 g/dL Hematocrit 26.6 % Mean Corpuscular Volume 88.4 fL Mean Corpuscular Hemoglobin 29.2 pg Mean Corpuscular Hemoglobin Concent 33.1 g/dl Platelet Count 212 K/uL Mean Platelet Volume 9.1 fL Neutrophils (%) (Auto) 84.8 % Lymphocytes (%) (Auto) 7.8 % Monocytes (%) (Auto) 6.7 % Eosinophils (%) (Auto) 0.0 % Basophils (%) (Auto) 0.2 % Neutrophils # (Auto) 11.22 K/uL Lymphocytes # (Auto) 1.03 K/uL Monocytes # (Auto) 0.88 K/uL Eosinophils # (Auto) 0.00 K/uL Basophils # (Auto) 0.02 K/uL RDW Standard Deviation 51.9 fL RDW Coefficient of Variation 16.0 % Immature Granulocyte % (Auto) 0.5 % Immature Granulocyte # (Auto) 0.07 K/uL Sodium Level 133 mmol/L Potassium Level 5.1 mmol/L Chloride Level 103 mmol/L Carbon Dioxide Level 25 mmol/L Anion Gap 5.0 mmol/L Blood Urea Nitrogen 33 mg/dl Creatinine 1.60 mg/dl Est Creatinine Clear Calc Drug Dose 42.0 ml/min Estimated GFR () 39.3 Estimated GFR (Non- 33.9 BUN/Creatinine Ratio 20.4 Random Glucose 224 mg/dl Calcium Level 8.2 mg/dl Phosphorus Level 4.0 mg/dl Magnesium Level 2.0 mg/dl Total Bilirubin 0.4 mg/dl Direct Bilirubin 0.1 mg/dl Aspartate Amino Transf (AST/SGOT) 48 U/L Alanine Aminotransferase (ALT/SGPT) 101 U/L Alkaline Phosphatase 199 U/L Total Protein 5.4 gm/dl Albumin 2.2 gm/dl Creatine Kinase MB Ratio Assessment & Plan This is a 62 year old female with a PMH of CAD s/p CABGx3, HTN, insulin dependent DM2, COPD, hypothyroidism, aortic stenosis and severe peripheral vascular disease and claudication here for a fem-pop bypass graft, now has chest pain Chest Pain in the setting of CAD Hx. of CABG x3 in 2005 Initially had chest pain, which has since resolved EKG was evaluated, no acute changes noted, some T-wave inversions, but compared to an EKG in December 2016, it looks similar initial cardiac enzymes are elevated at 0.5 - this could be multifactorial: kidney injury, hypertension: no previous troponin to evaluate for chronic elevation currently, she is already on aspirin, high intensity statin, Plavix and a b- jennifer will consult cardiology for possible IV heparin - though she had recent fem-pop bypass, anemia and recent blood transfusion, so bleed risk is higher trend cardiac enzymes, monitor in tele, ordered for an updated echo may need to switch for Lopressor to Coreg due to blood pressure issues Severe Peripheral Vascular Disease s/p Fem-Pop Bypass Graft she is doing okay, pain persists, but improves with pain medications further management as per vascular surgery continue aspirin, Plavix, statin Insulin Dependent DM2 appreciate pharmacy glycemic control consult uncontrolled DM2, with an A1c > 9% in December 2016 continue Levemir and insulin sliding scale as per pharmacy check an Ha1c Hypothyroidism continue Synthroid 200mcg Aortic Stenosis mild aortic stenosis as per previous echo check an updated echo continue Lasix HTN continue Lopressor, HCTZ, Benicar was just in the ICU due to hypotension, so monitor and adjust accordingly DVT ppx Lovenox FULL CODE
[2017-05-05 11:44] LABS: ESTIMATED AVERAGE GLUCOSE 180 mg/dl; HA1C FLAG Normal (Normal)
--- NOTE | 2017-05-05 12:34 | CARDIOLOGY CONSULTATION ---
DATE OF CONSULTATION: 05/05/2017 REFERRING PHYSICIAN: [facility] service. REASON FOR CONSULTATION: Ischemic heart disease. HISTORY OF PRESENT ILLNESS: The patient is a 62-year-old female who is usually followed by Dr. Santos at our [place] [facility]. She has a history of arteriosclerotic vascular disease and is status post coronary artery bypass surgery in 2005. She also has a longstanding history of peripheral vascular disease with claudication and previous iliac stents. She was admitted to this hospital with an ischemic right leg and underwent a fem-pop bypass. She was admitted to the ICU due to some hypotension, but has now recovered enough and will be transferred to the regular telemetry floor. She has no ongoing complaints. She denies chest pain or shortness of breath. She has had no cardiac arrhythmias. ALLERGIES: LISINOPRIL, AMLODIPINE, AND PENICILLINS. PAST MEDICAL HISTORY: As outlined above, the patient has a history of arteriosclerotic vascular disease due to cigarette smoking. She underwent coronary artery bypass surgery in 2005, receiving a RIZZO to the LAD, saphenous vein graft to left circumflex and distal right coronary arteries. Her surgery was complicated due to a sternal wound infection. That surgery was completed at [facility] in [place]. She has had previous stents placed in both iliac arteries. By her most recent echocardiogram, she has mild aortic stenosis. She also has a history of essential hypertension. SOCIAL HISTORY: The patient continues to smoke approximately half pack of cigarettes daily. FAMILY MEDICAL HISTORY: Noncontributory. REVIEW OF SYSTEMS: A 10-point review of systems is negative except for the history of chief complaint. PHYSICAL EXAMINATION: GENERAL: She is alert and oriented. VITAL SIGNS: Blood pressure is 150/60 and pulse is regular at 96. She is afebrile. HEENT: She is normocephalic. Pupils are equal and reactive to light. Extraocular muscles are intact bilaterally. NECK: The neck veins are flat. Carotids have good upstrokes bilaterally without bruits. Thyroid is nonpalpable. RESPIRATORY: Breath sounds equal bilaterally and clear to auscultation. CARDIOVASCULAR: Heart has a regular rhythm. Normal S1 and S2. No S3 or S4. No cardiac rubs or murmurs. GASTROINTESTINAL: Abdomen is soft and nontender without organomegaly. EXTREMITIES: Free of edema, digit clubbing, or cyanosis. NEUROLOGIC: Grossly intact. SKIN: Warm to touch. LYMPH NODES: Negative to palpation. IMPRESSION: 1. Diffuse arteriosclerotic vascular disease. 2. Status post fem-pop bypass for ischemic left leg. 3. Previous coronary artery bypass surgery. 4. History of cigarette smoking. RECOMMENDATIONS: The patient is currently hemodynamically stable. She will be transferred out of the ICU today. We will follow along with you during her hospital stay.
--- NOTE | 2017-05-05 13:06 | Critical Care Progress Note ---
Critical Care Progress Note Date of Service May 05, 2017. ICU Day ICU Day Number: [address] Noel Subjective Patient is a 62-year-old female admitted to the ICU status post LEFT-sided femoropopliteal bypass. Patient has been progressing well and improved with transfusion. On evaluation, she reports that she did eat well this morning which is the first since her stay. She is complaining of continued pain to the LEFT lower extremity. She offers no other complaints. There are no reported events overnight. After morning rounding, the patient complained of some chest pain with radiation to the jaw in conversation with primary admitting team. EKG and troponins were ordered. She is without pain at this point. Objective VITAL SIGNS - Vital signs and nursing notes were reviewed. GENERAL - 62-year-old female appearing her stated age who is in no acute distress. SKIN - Multiple previous areas of healed ulcerations noted to the bilateral lower extremities. Surgical sites with dressings intact to the medial surface of the LEFT thigh and groin. No active bleeding appreciated. Well demarcated area of palpable edema noted to the medial surface of the thigh which has increase in size. No ecchymosis or erythema appreciated. LUNGS - Chest wall symmetric without accessory muscle use, intercostals retractions, or central cyanosis. Normal vesicular breath sounds CTA B/L. No wheezes, rales, or rhonchi appreciated. CARDIAC - RRR with S1/S2. Previously well healed surgical incision site noted to the chest. Systolic murmur appreciated on exam. No rubs or gallops appreciated. ABDOMEN - Abdominal contour obese without pulsations or visible masses. BS normoactive all four quadrants. No tenderness, palpable masses, hepatosplenomegaly, or ascites noted. EXTREMITIES - No clubbing or peripheral cyanosis. No pretibial edema present. +5 /5 strength noted in UE/LE bilaterally. NEUROLOGIC - Cranial nerves II through XII grossly intact. PSYCH - A&Ox3 and cooperates fully with examiner. Current SOFA Score SOFA Score Response (Comments) Value Platelets (x10) > 150 0 Bilirubin (mg/dL) < 1.2 0 [place] Coma Score 15 0 Level of Hypotension No Hypotension 0 Creatinine (mg/dL) 1.2 - 1.9 1 Total 1 Previous SOFA Scores 3 Assessment & Plan Reason Critically Ill: 62-year-old female on Winston-Synephrine drip status post LEFT femoropopliteal bypass. Hyperglycemic status post procedure. Neuro - * CAM ICU: NEGATIVE * Pain in LLE adequately controlled s/p LEFT sided femoropopliteal bypass. Cardiac - * Postoperative Hypotension/Tachycardia: * Improved. Off pressors. * History of CABGx3, 10 years ago at [facility]: * Will continue Plavix/ASA/Lipitor. * Restarted home Rx. * Will monitor on telemetry. * EKGs for any c/o chest pain. * During attending surgeon's rounds, the patient was complaining of CP w/ radiation to the jaw. EKG and Troponin ordered per attending team. They will discuss transfer to telemetry in consultation with hospitalist team. Respiratory - * No known history of pulmonary disease. * Will provide supplemental O2 in the postoperative setting. * Titrate down as tolerated. * Monitor pulse oximetry. GI - * Prevacid 15 mg PO while in hospital for h/o GERD. * h/o IBS/Chronic Constipation * On Linzess at home - not on formulary. * Bowel regime as needed - especially in the setting of narcotic pain Rx use. RENAL/LYTES - * DARÍO with creatinine of 1.6 today - this is likely the patient's baseline. * Will monitor lytes - replace appropriately. - * Brunner Catheter in place. * d/c later in day of doing well OOB. ENDO - * T2DM: * ISS at this point. HEME - * Will monitor H&H in the setting of postoperative hypotension/tachycardia. * No obvious bleeding at this point. * Spoke with Dr. Gonzalez this AM. Will transfuse 2 U PRBCs in the setting of anemia postoperatively. ID - * No findings of infection at this point. * Monitor fever curve. LINES/IV ACCESS - * PIVs intact. DVT PROPHYLAXIS - * Lovenox 30 mg sq. At this point, the patient is off pressors and insulin drip. Her main issue is pain at this point. After morning rounds, the patient complained of chest pain to her admitting staff. EKG and troponins were ordered. Regardless, the patient does not warrant any further ICU care at this time. She will be downgraded from an ICU status at this point. Thank you for this consultation allow us to be part of this patient's care. Please refer to my attending physician's documentation for any further recommendations. I have personally evaluated and examined this patient. I agree with assessment and plan of Laura Gilbert PA-C. Patient off pressors, off insulin infusion, we will trend troponins stable for downgraded to telemetry status to complete cardiac workup. No evidence of ischemia on EKG Consults & Procedures Consultants: Attending: Dr. Gonzalez Assembly Stock Supervisor: Dr. Noel Procedures: RIGHT Brachial Arterial Line Data Medications: Current Inpatient Medications Medications (Trade) Dose Ordered Sig/Damion Route Start Time Stop Time Status Last Admin Dose Admin Acetaminophen (Tylenol Tab) 650 mg Q4H PRN PO 05/03/17 15:00 06/02/17 14:59 Oxycodone/ Acetaminophen (Percocet 5-325mg Tab) `1-2 TABS FOR MODER... Q4H PRN PO 05/03/17 15:00 05/17/17 14:59 05/05/17 08:25 2 TAB Ondansetron HCl (Zofran Inj) 4 mg Q6H PRN IV 05/03/17 15:00 06/02/17 14:59 05/03/17 21:41 4 MG Aspirin (Ecotrin Tab) 81 mg QAM PO 05/04/17 09:00 06/03/17 08:59 05/05/17 08:05 81 MG Atorvastatin Calcium (Lipitor Tab) 80 mg DAILY PO 05/04/17 09:00 06/03/17 08:59 05/05/17 08:05 80 MG Clopidogrel Bisulfate (plAVix TAB) 75 mg DAILY PO 05/04/17 09:00 06/03/17 08:59 05/05/17 08:05 75 MG Furosemide (Lasix Tab) 40 mg DAILY PO 05/04/17 09:00 06/03/17 08:59 05/05/17 08:06 40 MG Levothyroxine Sodium (Synthroid Tab) 200 mcg DAILYBB PO 05/04/17 06:00 06/03/17 05:59 05/05/17 06:22 200 MCG Metoprolol Tartrate (Lopressor Tab) 25 mg BID PO 05/03/17 21:00 06/02/17 20:59 05/05/17 09:17 25 MG Nitroglycerin (Nitrostat Tab) 0.4 mg PRN UT 05/03/17 15:00 06/02/17 14:59 Olmesartan (Benicar Tab) 40 mg DAILY PO 05/04/17 09:00 06/03/17 08:59 05/05/17 09:17 40 MG Albuterol/ Ipratropium (Combivent Respimat Inh) 1 puffs QID INH 05/03/17 21:00 06/02/17 20:59 05/05/17 08:06 1 PUFFS Glucose (Glucose 40% Gel) 15-30 GRAMS 15 GRAMS... UD PRN PO 05/03/17 15:00 06/02/17 14:59 Glucose (Glucose Chew Tab) 4-8 Tablets 4 Tabl... UD PRN PO 05/03/17 15:00 06/02/17 14:59 Dextrose (Dextrose 50% 50ML Syringe) 25-50ML OF 50% DW IV FOR... UD PRN IV 05/03/17 15:00 06/02/17 14:59 Glucagon (Glucagon Inj) 1 mg UD PRN SQ 05/03/17 15:00 06/02/17 14:59 Lansoprazole (Prevacid Solutab) 15 mg DAILY PO 05/04/17 09:00 06/03/17 08:59 05/05/17 08:05 15 MG Fentanyl Citrate (Fentanyl Inj) 100 mcg Q2H PRN IV 05/03/17 17:45 05/17/17 17:44 05/04/17 13:50 100 MCG Hydrochlorothiazide (Hydrochlorothiazide Tab) 12.5 mg DAILY PO 05/04/17 09:00 06/03/17 08:59 05/05/17 09:17 12.5 MG Enoxaparin Sodium (Lovenox Inj) 40 mg DAILY SQ 05/04/17 11:00 06/03/17 10:59 05/05/17 08:06 40 MG Miscellaneous Information (Consult Glycemic Management Pharmacy) 1 ea UD PRN N/A 05/04/17 10:15 06/03/17 10:14 Insulin Detemir (Levemir Flexpen/ FlexTouch) SEE PROTOCOL TEXT BID SC 05/04/17 21:00 06/03/17 20:59 05/05/17 08:04 28 UNITS Insulin Aspart (novoLOG ASPART) SLIDING SCALE ACHS SC 05/04/17 16:00 06/03/17 15:59 05/05/17 11:38 24 UNITS Insulin Aspart (novoLOG ASPART) SLIDING SCALE 0000,0400 SC 05/05/17 00:00 06/04/17 00:00 05/05/17 03:58 3 UNITS Vital Signs: Date Time Temp Pulse Resp B/P (MAP) Pulse Ox O2 Delivery O2 Flow Rate FiO2 05/05/17 10:00 96 19 156/57 (90) 93 Nasal Cannula 2.0 05/05/17 08:00 36.6 94 22 153/60 (91) 94 Nasal Cannula 2.0 05/05/17 08:00 Nasal Cannula 2.0 05/05/17 06:00 78 18 131/52 (78) 96 Nasal Cannula 2.0 05/05/17 04:00 36.9 70 14 119/50 (73) 95 Nasal Cannula 2.0 05/05/17 04:00 Nasal Cannula 2.0 05/05/17 02:00 70 14 116/48 (70) 96 Nasal Cannula 2.0 05/05/17 00:00 Nasal Cannula 2.0 05/05/17 00:00 36.8 70 14 113/43 (66) 96 Nasal Cannula 2.0 05/04/17 22:00 81 14 117/47 (70) 94 Nasal Cannula 2.0 05/04/17 20:32 36.9 87 14 123/45 (71) 93 Nasal Cannula 2.0 05/04/17 20:00 Nasal Cannula 2.0 05/04/17 18:00 84 14 134/52 (79) 91 Nasal Cannula 2.0 05/04/17 17:00 101 20 145/53 (83) 97 Nasal Cannula 2.0 05/04/17 16:00 Nasal Cannula 2.0 05/04/17 16:00 36.5 95 20 134/62 (86) 93 Nasal Cannula 2.0 05/04/17 15:31 92 26 105/77 (86) 93 Nasal Cannula 2.0 05/04/17 15:01 90 20 126/38 (67) 92 Nasal Cannula 2.0 05/04/17 14:00 88 15 121/43 (69) 90 Nasal Cannula 2.0 05/04/17 13:20 100 92 Laboratory Results: Last 24 Hours Test 05/04/17 12:30 05/04/17 13:44 05/04/17 15:51 05/04/17 20:09 Bedside Glucose 126 mg/dl 135 mg/dl 171 mg/dl 247 mg/dl Test 05/04/17 23:51 05/05/17 03:53 05/05/17 06:31 05/05/17 08:05 Bedside Glucose 223 mg/dl 178 mg/dl 170 mg/dl White Blood Count 13.22 K/uL Red Blood Count 3.01 M/uL Hemoglobin 8.8 g/dL Hematocrit 26.6 % Mean Corpuscular Volume 88.4 fL Mean Corpuscular Hemoglobin 29.2 pg Mean Corpuscular Hemoglobin Concent 33.1 g/dl Platelet Count 212 K/uL Mean Platelet Volume 9.1 fL Neutrophils (%) (Auto) 84.8 % Lymphocytes (%) (Auto) 7.8 % Monocytes (%) (Auto) 6.7 % Eosinophils (%) (Auto) 0.0 % Basophils (%) (Auto) 0.2 % Neutrophils # (Auto) 11.22 K/uL Lymphocytes # (Auto) 1.03 K/uL Monocytes # (Auto) 0.88 K/uL Eosinophils # (Auto) 0.00 K/uL Basophils # (Auto) 0.02 K/uL RDW Standard Deviation 51.9 fL RDW Coefficient of Variation 16.0 % Immature Granulocyte % (Auto) 0.5 % Immature Granulocyte # (Auto) 0.07 K/uL Sodium Level 133 mmol/L Potassium Level 5.1 mmol/L Chloride Level 103 mmol/L Carbon Dioxide Level 25 mmol/L Anion Gap 5.0 mmol/L Blood Urea Nitrogen 33 mg/dl Creatinine 1.60 mg/dl Est Creatinine Clear Calc Drug Dose 42.0 ml/min Estimated GFR () 39.3 Estimated GFR (Non- 33.9 BUN/Creatinine Ratio 20.4 Random Glucose 224 mg/dl Estimated Average Glucose 180 mg/dl Hemoglobin A1c 7.9 % Calcium Level 8.2 mg/dl Phosphorus Level 4.0 mg/dl Magnesium Level 2.0 mg/dl Total Bilirubin 0.4 mg/dl Direct Bilirubin 0.1 mg/dl Aspartate Amino Transf (AST/SGOT) 48 U/L Alanine Aminotransferase (ALT/SGPT) 101 U/L Alkaline Phosphatase 199 U/L Total Protein 5.4 gm/dl Albumin 2.2 gm/dl Test 05/05/17 09:46 Total Creatine Kinase 227 U/L Creatine Kinase MB 2.9 ng/ml Creatine Kinase MB Ratio 1.3 Troponin I 0.567 ng/ml
--- NOTE | 2017-05-05 13:36 | ECHOCARDIOGRAM REPORT ---
*NOTICE TO RECEIVING CONSTITUTION PARTY AGENCY This information is strictly Confidential and protected under [place] law. [place] law prohibits you from making any further disclosure of this information unless further disclosure is expressly permitted by the written consent of the person to whom it pertains or is authorized by law. A general authorization for the release of medical or other information is not sufficient for this purpose. Hospital accepts no responsibility if the information is made available to any other person, INCLUDING THE PATIENT. Interpretation Summary * Name: ANDREW HANNAH Study Date: 05/05/2017 11:24 AM BP: 156/57 mmHg * [facility] HR: 80 * : 1955 (M/d/yyyy) Gender: Female Height: 66 in * Age: 62 yrs Ethnicity: [place] Weight: 211 lb * Ordering Physician: Blanka Norman * Referring Physician: Tony Gonzalez. * Performed By: Deya Rodriguez RCS * * Reason For Study: CHEST PAIN * BSA: 2.0 m2 * -- Conclusions -- * Moderate valvular aortic stenosis. * There is mild concentric left ventricular hypertrophy. * Ejection Fraction = 55-60%. * The right ventricular systolic function is normal. Procedure Details * A complete two-dimensional transthoracic echocardiogram was performed (2D, M-mode, Doppler and color flow Doppler). Left Ventricle * The left ventricle is normal in size. * There is mild concentric left ventricular hypertrophy. * Left ventricular systolic function is normal. * Ejection Fraction = 55-60%. Right Ventricle * The right ventricle is grossly normal size. * The right ventricular systolic function is normal. Atria * The left atrial size is normal. * Right atrial size is normal. * The interatrial septum is intact with no evidence for an atrial septal defect. Mitral Valve * There is mild to moderate mitral annular calcification. * The mitral valve is grossly normal. * Significant mitral regurgitation is absent. Tricuspid Valve * The tricuspid valve is not well visualized, but is grossly normal. * Significant tricuspid regurgitation is absent. Aortic Valve * The aortic valve is not well visualized. * Moderate valvular aortic stenosis. * There is no significant aortic regurgitation. Pulmonic Valve * The pulmonic valve is not well visualized. * There is no significant pulmonary regurgitation. Great Vessels * The aortic root and proximal ascending aorta are normal sized. Pericardium/Pleural * There is no pericardial effusion. MMode 2D Measurements and Calculations IVSd 1.5 cm IVSs 1.8 cm LVIDd 4.9 cm LVIDs 3.6 cm LVPWd 1.4 cm LVPWs 1.2 cm IVS/LVPW 1.1 FS 25.9 % EDV(Teich) 114.1 ml ESV(Teich) 56.2 ml EF(Teich) 50.7 % EDV(cubed) 119.4 ml ESV(cubed) 48.6 ml EF(cubed) 59.3 % % IVS thick 18.1 % % LVPW thick -12.57 % LV mass(C)d 295.2 grams LV mass(C)dI 144.3 grams/m\S\2 LV mass(C)s 201.8 grams LV mass(C)sI 98.6 grams/m\S\2 SV(Teich) 57.9 ml SI(Teich) 28.3 ml/m\S\2 SV(cubed) 70.8 ml SI(cubed) 34.6 ml/m\S\2 Ao root diam 2.6 cm Ao root area 5.5 cm\S\2 LA dimension 4.7 cm LA/Ao 1.8 LVOT diam 2.0 cm LVOT area 3.3 cm\S\2 Doppler Measurements and Calculations MV E max alejandra 128.9 cm/sec MV A max alejandra 92.7 cm/sec MV E/A 1.4 MV P1/2t max alejandra 153.6 cm/sec MV P1/2t 54.5 msec MVA(P1/2t) 4.0 cm\S\2 MV dec slope 824.6 cm/sec\S\2 MV dec time 0.18 sec Ao V2 max 267.2 cm/sec Ao max PG 28.6 mmHg Ao max PG (full) 25.8 mmHg Ao V2 mean 201.5 cm/sec Ao mean PG 18.0 mmHg Ao mean PG (full) 16.4 mmHg Ao V2 VTI 69.1 cm LUIS MANUEL(I,A) 0.97 cm\S\2 LUIS MANUEL(I,D) 0.97 cm\S\2 LUIS MANUEL(V,A) 1.0 cm\S\2 LUIS MANUEL(V,D) 1.0 cm\S\2 LV V1 max PG 2.8 mmHg LV V1 mean PG 1.6 mmHg LV V1 max 83.6 cm/sec LV V1 mean 58.6 cm/sec LV V1 VTI 20.6 cm MR max alejandra 429.4 cm/sec MR max PG 73.8 mmHg SV(Ao) 377.6 ml SI(Ao) 184.5 ml/m\S\2 SV(LVOT) 67.2 ml SI(LVOT) 32.9 ml/m\S\2 PA V2 max 144.9 cm/sec PA max PG 8.4 mmHg TR max alejandra 173.4 cm/sec
--- NOTE | 2017-05-05 14:18 | Pharmacy Progress Note ---
Glycemic Control Progress Note Date of Service May 05, 2017. Scope Glycemic Pharmacist consulted for glycemic control to write orders per [facility] inpatient glycemic control protocol. Objective Accuchecks BSG (last 24hrs): Test 05/04/17 15:51 05/04/17 20:09 05/04/17 23:51 05/05/17 03:53 Bedside Glucose 171 mg/dl (70-90) 247 mg/dl (70-90) 223 mg/dl (70-90) 178 mg/dl (70-90) Test 05/05/17 06:31 05/05/17 08:05 Bedside Glucose 170 mg/dl (70-90) Random Glucose 224 mg/dl (70-99) HbA1c: Test 05/05/17 08:05 Hemoglobin A1c 7.9 % (4.5-5.6) H Recent Pertinent Medications The patient is currently receiving: * Lantus 28 units BID * Novolog ACHS + 00, 04 checks * Goal range 110-140 mg/dL * Correction Factor: 10 * Carb ratio: 4 Outpatient Anti-Diabetic Meds Oral Agents Basal Insulin Bolus Insulin Assessment & Plan ASSESSMENT: * See progress note from 05/03/17 for more background info, in short: * Pt receiving basal/bolus SQ insulin for hyperglycemia secondary to baseline DM (outpatient regimen on hold),stress, recent surgery * Insulin drip turned off ~1500 05/04/17 * Some rebound hyperglycemia was seen through the evening, but after tightening Novolog, BSGs started to trend back to goal * Fasting BSG this AM 170 mg/dL * Basal needs increased, begin tonight with 36 units versus 28 units * Given 10 extra units of Levemir now * Lunch BSG trended >300 mg/dL at lunch * Tighten Novolog further (currently tighter then stress of 3) * Plan will be to continue to tighten regimen until patient's BSGs respond accordingly PLAN FOR INPATIENT GLYCEMIC CONTROL: * Basal insulin * Increase to Levemir 36 units BID * Bolus insulin * NovoLog per scale ACHS + 00,04 checks * Goal Range: Low 140 mg/dL - High 180 mg/dL * Correction Factor: 10 mg/dL/unit * Nutritional / Prandial insulin per carb ratio of 1 unit per 4 grams CHO consumed * Please note that the plan above was derived based on current level of insulin resistance and hospital stress. These recommendations are appropriate for inpatient admission only. Plan of care upon discharge will need to be reassessed to avoid potential outpatient hypo/hyperglycemia. Thank you.
[2017-05-05] MEDS ORDERED: INSULIN DETEMIR FLEXPEN/FLEX TOUCH 100 UNITS/ML 3ML SC ONE ×2 (14:30→14:45)
[2017-05-05] MEDS ORDERED: INSULIN REGULAR 8 UNITS in SYRINGE 0 ML IV ONE (14:45)
[2017-05-05 16:29] LABS: CKMB/CK RATIO 1.3 (0-3.0)
[2017-05-06] VITALS: BP 159/73; PULSE 75; TEMP 36.9; O2SAT 93
[2017-05-06 00:04] LABS: CKMB/CK RATIO 1.3 (0-3.0)
[2017-05-06] MEDS: OXYCODONE/ACETAMINOPHEN 5-325 TAB PO PRN ×3 (00:08→10:02)
[2017-05-06 01:37] LABS: CKMB/CK RATIO 1.2 (0-3.0)
[2017-05-06 02:01] LABS: PARTIAL THROMBOPLASTIN RATIO 0.9
[2017-05-06 02:19] LABS: BASO % 0.3 %; BASO ABS # 0.03 K/uL (0-0.2); EOS % 1.3 %; HEMATOCRIT 25.4 % (37-47); IG% 0.7 %; LYMPH % 19.3 %; LYMPH ABS # 1.92 K/uL (1.2-3.4); MEAN CELL VOLUME 88.2 fL (80-100); MEAN CORPUSCULAR HEMOGLOBIN 29.5 pg (25-34); MEAN CORPUSCULAR HGB CONC 33.5 g/dl (32-36); MEAN PLATELET VOLUME 8.6 fL (7.4-10.4); MONO % 10.6 %; NEUT % 67.8 %; PLATELET COUNT 210 K/uL (130-400); RED BLOOD COUNT 2.88 M/uL (4.2-5.4); WHITE BLOOD COUNT 9.94 K/uL (4.8-10.8)
[2017-05-06 02:45] LABS: BUN/CREATININE RATIO 20.8 (10-20); CALCIUM 8.1 mg/dl (8.5-10.1); CREATININE 1.4 mg/dl (0.60-1.20); MAGNESIUM 2.1 mg/dl (1.8-2.4); POTASSIUM 4.1 mmol/L (3.5-5.1)
[2017-05-06 02:52] LABS: COMPLETE YES
[2017-05-06] MEDS: INSULIN ASPART 100 UNITS/ML 3 ML PEN SC SCH ×4 (04:00→12:34)
[2017-05-06 04:05] VITALS: BP 155/70; PULSE 74; TEMP 36.4; O2SAT 98
[2017-05-06] MEDS: LEVOTHYROXINE 200 MCG TAB PO SCH (06:15)
[2017-05-06 08:11] VITALS: BP 147/74; PULSE 87; TEMP 37; O2SAT 100
[2017-05-06] MEDS: IPRATROPIUM BROMIDE/ALBUTEROL respimat INH INH SCH ×2 (09:00→12:35)
[2017-05-06] MEDS: INSULIN DETEMIR FLEXPEN/FLEX TOUCH 100 UNITS/ML 3ML SC SCH (10:01)
[2017-05-06] MEDS: CLOPIDOGREL BISULFATE 75 MG TAB PO SCH (10:03)
[2017-05-06] MEDS: ASPIRIN 81 MG ECTAB PO SCH (10:03)
[2017-05-06] MEDS: HYDROCHLOROTHIAZIDE 25 MG TAB PO SCH (10:04)
[2017-05-06] MEDS: OLMESARTAN MEDOXOMIL 40 MG TAB PO SCH (10:04)
[2017-05-06] MEDS: LANSOPRAZOLE SOLUTAB 15 MG PO SCH (10:05)
[2017-05-06] MEDS: METOPROLOL TARTRATE 25 MG TAB PO SCH (10:05)
[2017-05-06] MEDS: FUROSEMIDE 40 MG TAB PO SCH (10:05)
[2017-05-06] MEDS: ATORVASTATIN 40 MG TAB PO SCH (10:05)
[2017-05-06] MEDS: ENOXAPARIN 40 MG/0.4 ML SYR SQ SCH (10:06)
--- NOTE | 2017-05-06 10:29 | Progress Note ---
Progress Note Date of Service: May 06, 2017. Subjective 62 yo f with multiple medical problems, POD #3 after LLE fem-op BPG, seen in f/ u today. Pt states feeling improved, less pain in LLE incisions. Has been ambulating without walker per pt. Denies chest pain, SOB, jaw pain, N/V, abd pain, other complaints. Objective Vital Signs Vital Signs Past 12 Hours Date Time Temp Pulse Resp B/P (MAP) Pulse Ox O2 Delivery O2 Flow Rate FiO2 05/06/17 08:11 37.0 87 16 147/74 (98) 100 Nasal Cannula 2.0 05/06/17 04:05 36.4 74 19 155/70 (98) 98 Nasal Cannula 2.0 05/06/17 04:00 Nasal Cannula 2.0 93 05/06/17 00:00 36.9 75 23 159/73 (101) 93 Room Air 05/05/17 23:59 Nasal Cannula 2.0 93 Exam CONST: A&O x4, NAD, pale, chronically ill appearing female CHEST: RRR lungs decreased, with occasional wheeze, ABD: soft, nontnder, + bs x 4 quad EXT: L groin/leg incisions C/I with brianda, minimal bloody drainage from L groin wound. + local tenderness/edema/ecchymosis. Foot warm and pink, + dopppler distal pulses, brisk cap refill. Laboratory and Microbiology Results Past 24 Hours Test 05/05/17 10:56 05/05/17 10:59 05/05/17 14:25 05/05/17 15:26 Range/Units Bedside Glucose 321 320 326 70-90 mg/dl Total Creatine Kinase 257 26-192 U/L Creatine Kinase MB 3.3 0.5-3.6 ng/ml Creatine Kinase MB Ratio 1.3 0-3.0 Troponin I 0.941 0-0.045 ng/ml Test 05/05/17 15:41 05/05/17 16:36 05/05/17 19:58 05/05/17 23:12 Range/Units Bedside Glucose 231 161 205 70-90 mg/dl Total Creatine Kinase 308 26-192 U/L Creatine Kinase MB 4.0 0.5-3.6 ng/ml Creatine Kinase MB Ratio 1.3 0-3.0 Troponin I 1.700 0-0.045 ng/ml Test 05/05/17 23:47 05/06/17 00:26 05/06/17 01:35 05/06/17 04:02 Range/Units Bedside Glucose 87 72 70-90 mg/dl Total Creatine Kinase 341 26-192 U/L Creatine Kinase MB 4.0 0.5-3.6 ng/ml Creatine Kinase MB Ratio 1.2 0-3.0 Troponin I 1.800 1.970 0-0.045 ng/ml White Blood Count 9.94 4.8-10.8 K/uL Red Blood Count 2.88 4.2-5.4 M/uL Hemoglobin 8.5 12.0-16.0 g/dL Hematocrit 25.4 37-47 % Mean Corpuscular Volume 88.2 80-100 fL Mean Corpuscular Hemoglobin 29.5 25-34 pg Mean Corpuscular Hemoglobin Concent 33.5 32-36 g/dl Platelet Count 210 130-400 K/uL Mean Platelet Volume 8.6 7.4-10.4 fL Neutrophils (%) (Auto) 67.8 % Lymphocytes (%) (Auto) 19.3 % Monocytes (%) (Auto) 10.6 % Eosinophils (%) (Auto) 1.3 % Basophils (%) (Auto) 0.3 % Neutrophils # (Auto) 6.74 1.4-6.5 K/uL Lymphocytes # (Auto) 1.92 1.2-3.4 K/uL Monocytes # (Auto) 1.05 0.11-0.59 K/uL Eosinophils # (Auto) 0.13 0-0.5 K/uL Basophils # (Auto) 0.03 0-0.2 K/uL RDW Standard Deviation 50.3 36.4-46.3 fL RDW Coefficient of Variation 15.6 11.5-14.5 % Immature Granulocyte % (Auto) 0.7 % Immature Granulocyte # (Auto) 0.07 0.00-0.02 K/uL Nucleated RBC Absolute Count (auto) 0.04 0-0 K/uL Nucleated Red Blood Cells % 0.4 % Red Blood Cell Morphology Unremarkable Activated Partial Thromboplast Time 24.0 21.0-31.0 SECONDS Partial Thromboplastin Ratio 0.9 Sodium Level 140 136-145 mmol/L Potassium Level 4.1 3.5-5.1 mmol/L Chloride Level 106 98-107 mmol/L Carbon Dioxide Level 30 21-32 mmol/L Anion Gap 4.0 3-11 mmol/L Blood Urea Nitrogen 29 7-18 mg/dl Creatinine 1.40 0.60-1.20 mg/dl Est Creatinine Clear Calc Drug Dose 48.0 ml/min Estimated GFR () 46.2 Estimated GFR (Non- 39.9 BUN/Creatinine Ratio 20.8 10-20 Random Glucose 66 70-99 mg/dl Calcium Level 8.1 8.5-10.1 mg/dl Magnesium Level 2.1 1.8-2.4 mg/dl Test 05/06/17 05:06 05/06/17 06:19 05/06/17 06:39 05/06/17 07:00 Range/Units Troponin I 2.040 0-0.045 ng/ml Bedside Glucose 53 65 137 70-90 mg/dl Test 05/06/17 09:55 Range/Units ASSESSMENT and PLAN: s/p LLE fem-pop BPG Severe PAD with rest pain Pt appears to be improving overall. Pt was eval by cardiology yesterday. Pt had no further complaints of chest/jaw discomfort and is anxious for discharge. Advised pt that she will require eval by cardiology prior to considering discharge.
--- NOTE | 2017-05-06 11:12 | CARDIOLOGY PROGRESS NOTE ---
DATE: 05/06/2017 DATE: 05/06/2017 FOLLOW-UP VISIT SUBJECTIVE: The patient is a 62-year-old female with a history of severe diffuse arteriosclerotic vascular disease with previous coronary artery bypass surgery. She has had previous stenting of both iliac arteries. She was admitted with ischemic left leg and underwent fem-pop bypass earlier in the admission. She has no complaints this morning and had an uneventful night. OBJECTIVE: GENERAL: She is alert and oriented in no acute distress. VITAL SIGNS: Blood pressure is 140/70, pulse is regular at 80. She is afebrile. HEAD, EYES, EARS, NOSE, AND THROAT: Normocephalic. Pupils are equal and reactive to light. Extraocular muscles are intact bilaterally. NECK: The neck veins are flat. Carotids have good upstrokes bilaterally without bruits. Thyroid is nonpalpable. RESPIRATORY: Breath sounds are equal bilaterally and clear to auscultation. CARDIOVASCULAR: Heart has a regular rhythm. Normal S1, S2. No S3, S4. No cardiac rubs or murmurs. GASTROINTESTINAL: Abdomen is soft, nontender without organomegaly. EXTREMITIES: Free of edema, digit clubbing, or cyanosis. NEUROLOGIC: Grossly intact. SKIN: Warm to touch. LYMPH NODES: Negative to palpation. IMPRESSIONS: 1. Diffuse arteriosclerotic vascular disease. 2. Status post fem-pop bypass versus ischemic, chemical leg. 3. Previous coronary artery bypass surgery. 4. History of cigarette smoking. RECOMMENDATIONS: The patient remains clinically stable. At this point, I would recommend continued medications and ambulation where appropriate. From a cardiac standpoint, she can be discharged per the surgeon and the hospitalist.
[2017-05-06 11:44] VITALS: BP 160/78; PULSE 83; TEMP 37.2; O2SAT 99
--- NOTE | 2017-05-06 11:52 | Pharmacy Progress Note ---
Glycemic Control Progress Note Date of Service May 06, 2017. Scope Glycemic Pharmacist consulted for glycemic control to write orders per [facility] inpatient glycemic control protocol. Objective Accuchecks BSG (last 24hrs): Test 05/05/17 14:25 05/05/17 15:41 05/05/17 16:36 05/05/17 19:58 Bedside Glucose 326 mg/dl (70-90) 231 mg/dl (70-90) 161 mg/dl (70-90) 205 mg/dl (70-90) Test 05/05/17 23:47 05/06/17 01:35 05/06/17 04:02 05/06/17 06:19 Bedside Glucose 87 mg/dl (70-90) 72 mg/dl (70-90) 53 mg/dl (70-90) Random Glucose 66 mg/dl (70-99) Test 05/06/17 06:39 05/06/17 07:00 Bedside Glucose 65 mg/dl (70-90) 137 mg/dl (70-90) HbA1c: Test 05/05/17 08:05 Hemoglobin A1c 7.9 % (4.5-5.6) H Recent Pertinent Medications The patient is currently receiving: * Basal insulin: Lantus every 12 hours * 28 units for BSG <140mg/dl * 36 units for BSG > 140mg/dl * Correctional Insulin: Novolog Correction per scale ACHS Goal Range: Low 110 mg/dL - High 140 mg/dL Correction Factor: 10 mg/dL/unit * Prandial insulin: Per carb ratio of 1 unit per 4 grams CHO consumed Outpatient Anti-Diabetic Meds Oral Agents Basal Insulin Bolus Insulin Assessment & Plan ASSESSMENT: * See progress note from 05/03 for more background info, in short: * Pt receiving SQ basal bolus insulin regimen for hyperglycemia secondary to baseline DM (outpatient regimen on hold), recent surgery, steroids * Patient is currently receiving an average of 139 units of insulin per day yesterday * 64 units of basal insulin * 75 units of prandial/correctional insulin * BSGs ranging 53 - 320 mg/dl over the past 24hrs * Changes needed to insulin regimen: * AM Fasting BSG = 53 mg/dl. This is in below goal range for patient based on inpatient targets and co-morbidities. Therefore Basal insulin needs decreased and CF needs loosened, as pt was corrected last night at bedtime for BSG 205mg/ dl and continued to drop throughout the night. * BSG was then high at 293mg/dL today prior to lunch - RN called, this is d/t pt only just receiving Novolog at 1000 for breakfast. PLAN FOR INPATIENT GLYCEMIC CONTROL: * Oral Agents * Continue to hold outpatient oral diabetes medications. * Basal insulin * Lantus SQ BID * BSG less than 100mg/dl - 0 units * BSG 100-180mg/dl - 28 units * BSG > 180mg/dl - 36 units * Bolus insulin * NovoLog per scale ACHS or Q6hrs while NPO * Goal Range: Low 110 mg/dL - High 140 mg/dL * LOOSEN Correction Factor: 12 mg/dL/unit * Nutritional / Prandial insulin per carb ratio of 1 unit per 4 grams CHO consumed * Please note that the plan above was derived based on current level of insulin resistance and hospital stress. These recommendations are appropriate for inpatient admission only. Plan of care upon discharge will need to be reassessed to avoid potential outpatient hypo/hyperglycemia. Thank you.
[2017-05-06] MEDS ORDERED: OXYC-57 PO (11:55)
--- NOTE | 2017-05-06 12:04 | Discharge Instructions ---
Discharge Instructions Date of Service May 06, 2017. Admission Reason for Admission: Left Superficial Femoral Artery Occlusion with rest pain Discharge Discharge Diagnosis / Problem: post Left Leg femoral to popliteal artery bypass Discharge Goals Goal(s): Decrease discomfort, Therapeutic intervention Activity Recommendations Activity Limitations: per Instructions/Follow-up section . Instructions / Follow-Up Instructions / Follow-Up Increase activity as tolerated. May ambulate as tolerated. No soaking in bathtub, but may shower and dry surgical sites thoroughly after. May place clean gauze to groin wound if drainage present. Call office with any concerns. [phone] Follow up office appt with Dr Gonzalez or Sylvia Silva PA-C in 2 weeks for staple removal. Current Hospital Diet Patient's current hospital diet: AHA Diet (Heart Healthy), Diabetes Type 2 Diet Discharge Diet Recommended Diet: AHA Diet (Heart Healthy) Procedures Procedures Performed: Left leg above the knee prosthetic femoral- popiteal bypass; femoral artery endoarectomy with patch Pending Studies Studies pending at discharge: no Laboratory Results Hemoglobin A1c Test 05/05/17 08:05 Range/Units Estimated Average Glucose 180 mg/dl Hemoglobin A1c 7.9 H 4.5-5.6 % Lipid Panel Test 04/22/17 10:10 Range/Units Triglycerides Level 175 H 0-150 mg/dl Cholesterol Level 164 0-200 mg/dl HDL Cholesterol 43 mg/dl Cholesterol/HDL Ratio 3.8 LDL Cholesterol, Calculated 86 mg/dl Medical Emergencies . Who to Call and When: Medical Emergencies: If at any time you feel your situation is an emergency, please call 911 immediately. . Non-Emergent Contact Non-Emergency issues call your: Surgeon Call Non-Emergent contact if: you have a fever, your pain is not controlled, your pain is worsening, wound has increased drainage . "Provider Documentation" section prepared by Sylvia Sliva. . VTE Core Measure Inpt VTE Proph given/why not?: Enoxaparin (Lovenox)[facility] Drug Monitoring Program Search Results: patient reviewed within database, no issues identified
--- NOTE | 2017-05-06 12:26 | Progress Note ---
Subjective Date of Service: May 06, 2017. Subjective Pt evaluation today including: conversation w/ patient, physical exam, lab review, review of studies, review of inpatient medication list Saw/examined the patient in room 234 patient is doing well, denies chest pain/shortness of breath No problems/issues to note Mild pain at the L LE surgical site, but improved with medications Review of Systems Constitutional: No fever, No chills Respiratory: No shortness of breath Cardiac: No chest pain Musculoskeletal: + joint pain (LLE), + muscle pain Heme: No abnormal bleeding/bruising Medications Current Inpatient Medications Medications (Trade) Dose Ordered Sig/Damion Route Start Time Stop Time Status Last Admin Dose Admin Acetaminophen (Tylenol Tab) 650 mg Q4H PRN PO 05/03/17 15:00 06/02/17 14:59 Oxycodone/ Acetaminophen (Percocet 5-325mg Tab) `1-2 TABS FOR MODER... Q4H PRN PO 05/03/17 15:00 05/17/17 14:59 05/06/17 10:02 2 TAB Ondansetron HCl (Zofran Inj) 4 mg Q6H PRN IV 05/03/17 15:00 06/02/17 14:59 05/03/17 21:41 4 MG Aspirin (Ecotrin Tab) 81 mg QAM PO 05/04/17 09:00 06/03/17 08:59 05/06/17 10:03 81 MG Atorvastatin Calcium (Lipitor Tab) 80 mg DAILY PO 05/04/17 09:00 06/03/17 08:59 05/06/17 10:05 80 MG Clopidogrel Bisulfate (plAVix TAB) 75 mg DAILY PO 05/04/17 09:00 06/03/17 08:59 05/06/17 10:03 75 MG Furosemide (Lasix Tab) 40 mg DAILY PO 05/04/17 09:00 06/03/17 08:59 05/06/17 10:05 40 MG Levothyroxine Sodium (Synthroid Tab) 200 mcg DAILYBB PO 05/04/17 06:00 06/03/17 05:59 05/06/17 06:15 200 MCG Metoprolol Tartrate (Lopressor Tab) 25 mg BID PO 05/03/17 21:00 06/02/17 20:59 05/06/17 10:05 25 MG Nitroglycerin (Nitrostat Tab) 0.4 mg PRN UT 05/03/17 15:00 06/02/17 14:59 Olmesartan (Benicar Tab) 40 mg DAILY PO 05/04/17 09:00 06/03/17 08:59 05/06/17 10:04 40 MG Albuterol/ Ipratropium (Combivent Respimat Inh) 1 puffs QID INH 05/03/17 21:00 06/02/17 20:59 05/05/17 19:54 1 PUFFS Glucose (Glucose 40% Gel) 15-30 GRAMS 15 GRAMS... UD PRN PO 05/03/17 15:00 06/02/17 14:59 Glucose (Glucose Chew Tab) 4-8 Tablets 4 Tabl... UD PRN PO 05/03/17 15:00 06/02/17 14:59 Dextrose (Dextrose 50% 50ML Syringe) 25-50ML OF 50% DW IV FOR... UD PRN IV 05/03/17 15:00 06/02/17 14:59 Glucagon (Glucagon Inj) 1 mg UD PRN SQ 05/03/17 15:00 06/02/17 14:59 Lansoprazole (Prevacid Solutab) 15 mg DAILY PO 05/04/17 09:00 06/03/17 08:59 05/06/17 10:05 15 MG Fentanyl Citrate (Fentanyl Inj) 100 mcg Q2H PRN IV 05/03/17 17:45 05/17/17 17:44 05/04/17 13:50 100 MCG Hydrochlorothiazide (Hydrochlorothiazide Tab) 12.5 mg DAILY PO 05/04/17 09:00 06/03/17 08:59 05/06/17 10:04 12.5 MG Enoxaparin Sodium (Lovenox Inj) 40 mg DAILY SQ 05/04/17 11:00 06/03/17 10:59 05/06/17 10:06 40 MG Miscellaneous Information (Consult Glycemic Management Pharmacy) 1 ea UD PRN N/A 05/04/17 10:15 06/03/17 10:14 Insulin Detemir (Levemir Flexpen/ FlexTouch) SEE PROTOCOL TEXT BID SC 05/04/17 21:00 06/03/17 20:59 05/06/17 10:01 28 UNITS Insulin Aspart (novoLOG ASPART) SLIDING SCALE ACHS SC 05/04/17 16:00 06/03/17 15:59 05/06/17 09:59 10 UNITS Objective Vital Signs Date Time Temp Pulse Resp B/P (MAP) Pulse Ox O2 Delivery O2 Flow Rate FiO2 05/06/17 11:44 37.2 83 16 160/78 (105) 99 Nasal Cannula 2.0 05/06/17 08:11 37.0 87 16 147/74 (98) 100 Nasal Cannula 2.0 05/06/17 04:05 36.4 74 19 155/70 (98) 98 Nasal Cannula 2.0 05/06/17 04:00 Nasal Cannula 2.0 93 05/06/17 00:00 36.9 75 23 159/73 (101) 93 Room Air 05/05/17 23:59 Nasal Cannula 2.0 93 05/05/17 20:00 Room Air 05/05/17 19:09 37.0 81 20 173/72 (105) 100 Nasal Cannula 2.0 05/05/17 15:38 36.8 76 20 135/71 (92) 99 Nasal Cannula 2.0 Physical Exam General Appearance: no apparent distress Respiratory/Chest: lungs clear, normal breath sounds, no respiratory distress, no accessory muscle use Cardiovascular: regular rate, rhythm, no edema, no murmur Abdomen: normal bowel sounds, non tender, soft Extremities: normal inspection, no pedal edema Laboratory Results Last 24 Hours Test 05/05/17 14:25 05/05/17 15:26 05/05/17 15:41 05/05/17 16:36 Bedside Glucose 326 mg/dl 231 mg/dl 161 mg/dl Total Creatine Kinase 257 U/L Creatine Kinase MB 3.3 ng/ml Creatine Kinase MB Ratio 1.3 Troponin I 0.941 ng/ml Test 05/05/17 19:58 05/05/17 23:12 05/05/17 23:47 05/06/17 00:26 Bedside Glucose 205 mg/dl 87 mg/dl Total Creatine Kinase 308 U/L 341 U/L Creatine Kinase MB 4.0 ng/ml 4.0 ng/ml Creatine Kinase MB Ratio 1.3 1.2 Troponin I 1.700 ng/ml 1.800 ng/ml Test 05/06/17 01:35 05/06/17 04:02 05/06/17 05:06 05/06/17 06:19 White Blood Count 9.94 K/uL Red Blood Count 2.88 M/uL Hemoglobin 8.5 g/dL Hematocrit 25.4 % Mean Corpuscular Volume 88.2 fL Mean Corpuscular Hemoglobin 29.5 pg Mean Corpuscular Hemoglobin Concent 33.5 g/dl Platelet Count 210 K/uL Mean Platelet Volume 8.6 fL Neutrophils (%) (Auto) 67.8 % Lymphocytes (%) (Auto) 19.3 % Monocytes (%) (Auto) 10.6 % Eosinophils (%) (Auto) 1.3 % Basophils (%) (Auto) 0.3 % Neutrophils # (Auto) 6.74 K/uL Lymphocytes # (Auto) 1.92 K/uL Monocytes # (Auto) 1.05 K/uL Eosinophils # (Auto) 0.13 K/uL Basophils # (Auto) 0.03 K/uL RDW Standard Deviation 50.3 fL RDW Coefficient of Variation 15.6 % Immature Granulocyte % (Auto) 0.7 % Immature Granulocyte # (Auto) 0.07 K/uL Nucleated RBC Absolute Count (auto) 0.04 K/uL Nucleated Red Blood Cells % 0.4 % Red Blood Cell Morphology Unremarkable Activated Partial Thromboplast Time 24.0 SECONDS Partial Thromboplastin Ratio 0.9 Sodium Level 140 mmol/L Potassium Level 4.1 mmol/L Chloride Level 106 mmol/L Carbon Dioxide Level 30 mmol/L Anion Gap 4.0 mmol/L Blood Urea Nitrogen 29 mg/dl Creatinine 1.40 mg/dl Est Creatinine Clear Calc Drug Dose 48.0 ml/min Estimated GFR () 46.2 Estimated GFR (Non- 39.9 BUN/Creatinine Ratio 20.8 Random Glucose 66 mg/dl Calcium Level 8.1 mg/dl Magnesium Level 2.1 mg/dl Troponin I 1.970 ng/ml 2.040 ng/ml Bedside Glucose 72 mg/dl 53 mg/dl Test 05/06/17 06:39 05/06/17 07:00 05/06/17 09:55 Bedside Glucose 65 mg/dl 137 mg/dl Troponin I 1.200 ng/ml Assessment and Plan This is a 62 year old female with a PMH of CAD s/p CABGx3, HTN, insulin dependent DM2, COPD, hypothyroidism, aortic stenosis and severe peripheral vascular disease and claudication here for a fem-pop bypass graft, now has chest pain Chest Pain in the setting of CAD 05/06 appreciate cardiology input no chest pain troponin elevation noted, but no need for any further intervention continue aspirin + Plavix, statin, b-jennifer 05/05 Hx. of CABG x3 in 2005 Initially had chest pain, which has since resolved EKG was evaluated, no acute changes noted, some T-wave inversions, but compared to an EKG in December 2016, it looks similar initial cardiac enzymes are elevated at 0.5 - this could be multifactorial: kidney injury, hypertension: no previous troponin to evaluate for chronic elevation currently, she is already on aspirin, high intensity statin, Plavix and a b- jennifer will consult cardiology for possible IV heparin - though she had recent fem-pop bypass, anemia and recent blood transfusion, so bleed risk is higher trend cardiac enzymes, monitor in tele, ordered for an updated echo may need to switch for Lopressor to Coreg due to blood pressure issues Severe Peripheral Vascular Disease s/p Fem-Pop Bypass Graft she is doing okay, pain persists, but improves with pain medications further management as per vascular surgery continue aspirin, Plavix, statin Insulin Dependent DM2 appreciate pharmacy glycemic control consult uncontrolled DM2, with an A1c > 9% in December 2016 continue Levemir and insulin sliding scale as per pharmacy check an Ha1c Hypothyroidism continue Synthroid 200mcg Aortic Stenosis mild aortic stenosis as per previous echo check an updated echo continue Lasix HTN continue Lopressor, HCTZ, Benicar was just in the ICU due to hypotension, so monitor and adjust accordingly DVT ppx Lovenox FULL CODE
[2017-05-06 13:20] VITALS: Ht 167.6 cm; Wt 95.8 kg
[2017-05-06 13:28] VITALS: BP 160/78; PULSE 83; TEMP 37.2; O2SAT 99
--- NOTE | 2017-05-06 13:56 | Progress Note ---
Progress Note Date of Service May 06, 2017. Progress Note I assisted Dr Gonzalez with Cristina Pak's Left leg above the knee prosthetic femoral- popiteal bypass; femoral artery endoarectomy with patch, on 05/03/17, d/ t lack of resident availability.
--- NOTE | 2017-05-06 15:41 | DISCHARGE SUMMARY ---
ADMISSION DIAGNOSIS: Left lower extremity superficial femoral artery occlusion with rest pain. DISCHARGE DIAGNOSES: 1. Status post left lower extremity femoral to popliteal artery bypass graft. 2. Severe peripheral arterial disease with rest pain, left lower extremity. DISCHARGE CONDITION: Stable. CONSULTATIONS IN THE HOSPITAL: Included critical care during her ICU stay and cardiology consultation with the [facility] as well as a medicine consultation with the [facility] as well. PROCEDURES IN THE HOSPITAL: Left leg above the knee prosthetic femoral to popliteal artery bypass graft and femoral artery endarterectomy with patch performed on 05/03/2017 with an EBL of 450 mL and no significant complications. HISTORY OF PRESENT ILLNESS: Mrs. Pak is a 62-year-old female who has been followed by Dr. Gonzalez for her significant peripheral arterial disease as well as aortoiliac disease in the past. The patient called the office stating that she had worsening discomfort in her left lower extremity and when evaluated in the office she was determined to have severe debilitating claudication at which time she was recommended to undergo a left leg angiography. During that procedure, she underwent restenting of her left iliac artery as well as a new SFA stent placed in her left lower extremity. She did well initially postoperatively, but within a week she called the office complaining of severe discomfort in her left thigh as well as her left calf. She stated she was unable to walk on the leg and she had been postoperatively before this. She was brought into the office urgently for arterial ultrasound to verify patency of the previously placed stents which demonstrated complete occlusion of her SFA stent despite having been on Plavix. At that time she was recommended to undergo an attempted thrombectomy of her left lower extremity with a possible fem-pop bypass if the thrombectomy was unsuccessful. The procedure, risks, benefits, alternatives were discussed with the patient. She expressed understanding and agreement to proceed. HOSPITAL COURSE: The patient was admitted on 05/03/2017 after undergoing her left lower extremity fem-pop bypass and femoral artery endarterectomy. This was performed without significant complication. She did have an EBL of approximately 450 mL. Her hemoglobin did drop postoperatively to a low of 7.5. At that time she was symptomatic, hypotensive and tachycardic. After transfusion of 2 units she improved significantly and stabilized. The patient's pain was essentially under control in her left lower extremity. She no longer had any foot discomfort and was only having discomfort at her surgical sites. On postop day 2 she complained to staff of discomfort in her chest which radiated to her left jaw. This lasted approximately 30 minutes. During that time she underwent an EKG evaluation which demonstrated no acute changes and a medicine and cardiology consultation were placed. Serial cardiac enzymes did not show any significant problems and her chest x-ray was similar to preop. She remained stable throughout. She was then transferred to tele unit where she continued to improve and had no further complaints. She was felt to be stable enough for discharge on postop day #3. PHYSICAL EXAMINATION: VITAL SIGNS: On day of discharge, her vital signs were as follows: Temperature of 37.2, pulse of 83, respiratory rate 16, blood pressure 160/78 with pulse oximetry of 99% on room air. CONSTITUTIONAL: GENERAL: The patient is a slightly pale though ill-appearing, middle-aged, appearing older female who is alert and oriented x4 in no distress. HEAD: Normocephalic and atraumatic. EYES: EOMI. EARS, NOSE, THROAT: Demonstrated no hearing loss, rhinorrhea or pharyngeal erythema. NECK: Supple, nontender with a midline trachea without masses or crepitus. LUNGS: Demonstrated no dyspnea. They were decreased significantly throughout and only demonstrated an occasional wheezes. CARDIOVASCULAR: Her heart demonstrated regular rate and rhythm. Her peripheral pulses were full and equal in all extremities unless otherwise noted, specifically they were normal in her carotid, brachial and radial pulses. Her right femoral was +2. Her right distal pulses were +1. She had brisk capillary refill and no sign of distal ischemia. Her left femoral is nonpalpable due to the edema in surgical sites and the patient did not tolerate palpation of that pulse. Her distal pulses are present with Doppler only. Her toes demonstrates brisk capillary refill. Her foot was warm and pink. ABDOMEN: Soft, nontender with normoactive bowel sounds in all 4 quadrants without guarding or rebound. There is no flank or CVA tenderness. MUSCULOSKELETAL EXAMINATION: Demonstrated normal tone and strength for age. Bilateral upper extremities demonstrated no cyanosis, edema, clubbing, varicosities or ulcers. The patient's left leg surgical wounds were well approximated and healing appropriately. There are brianda in place. Her groin wound had a minimal amount of bloody drainage on the dressing. Her distal site was completely dry. She does have some local tenderness, ecchymosis and edema. There is no erythema noted. NEUROLOGIC: The patient has grossly intact cranial nerves and grossly intact sensation and demonstrates no focal deficits. DIET UPON DISCHARGE: Should be a low-cholesterol AHA diet. MEDICATIONS: Were reconciled in the chart and are as per her discharge instructions. FOLLOWUP: With Dr. Gonzalez or his PA Sylvia Silva in the office for followup within 2 weeks for staple removal and reevaluation and she was advised to call the office with any other questions.
[2017-05-13] MEDS ORDERED: OMEP40CA41 PO (18:08)
[2017-05-13] MEDS ORDERED: LINA1CAP PO (18:08)
[2017-05-13] MEDS ORDERED: BNC/40 PO (18:08)
[2017-05-13] MEDS ORDERED: SYN175 PO (18:10)
[2017-05-23] MEDS ORDERED: CLC100 PO (09:07)
[2017-05-23] MEDS ORDERED: LEVO500T19 PO (09:07)
[2017-05-23] MEDS ORDERED: OXYC-57 PO (09:07)
[2017-05-23] MEDS ORDERED: CLIN150C PO (09:07)
== END 2017-05-06 14:02 | disposition home or self-care (01) | DRG 272 ==
LOC: C.OR 05:52 → C.MSICU 15:03 → ENRESERV 17:14 → C.2T 05-05 12:12
PROVIDERS: ADMIT Surgery Vascular Surgery; ATTEND Surgery Vascular Surgery
PROC: 04CL3ZZ Extirpation of Matter from Left Femoral Artery, Percutaneous Approach (ICD-10-PCS; principal; 2017-05-03 08:15)
PROC: 041L4JL Bypass Left Femoral Artery to Popliteal Artery with Synthetic Substitute, Percutaneous Endoscopic Approach (ICD-10-PCS; principal; 2017-05-03 08:15)
DX: T82.856A Stenosis of peripheral vascular stent, initial encounter (principal); I25.10 Atherosclerotic heart disease of native coronary artery without angina pectoris; I10 Essential (primary) hypertension; E11.9 Type 2 diabetes mellitus without complications; I73.9 Peripheral vascular disease, unspecified; F17.200 Nicotine dependence, unspecified, uncomplicated; Z79.82 Long term (current) use of aspirin; Z79.4 Long term (current) use of insulin

== ENCOUNTER → 2017-07-22 | Outpatient (CLI) | payer OTHER ==
[~2017-07-22] MED LIST changes: +BNC/40 PO; +CLC100 PO; +COMBIVENT; -LEVO200T6 PO; +LINA1CAP PO; -LINA72CA; -OLMETAB3; -OMEP20CA9; +OMEP40CA41 PO; +OXYC-57 PO; +SYN175 PO
[2017-07-22 14:02] LABS: BASO % 1.1 %; BASO ABS # 0.07 K/uL (0-0.2); COMPLETE YES; EOS % 3.4 %; HEMATOCRIT 38.2 % (37-47); IG% 0.3 %; LYMPH % 31.3 %; LYMPH ABS # 2.02 K/uL (1.2-3.4); MEAN CELL VOLUME 87.6 fL (80-100); MEAN CORPUSCULAR HEMOGLOBIN 28.4 pg (25-34); MEAN CORPUSCULAR HGB CONC 32.5 g/dl (32-36); MEAN PLATELET VOLUME 9.8 fL (7.4-10.4); NEUT % 54.9 %; PLATELET COUNT 291 K/uL (130-400); RED BLOOD COUNT 4.36 M/uL (4.2-5.4); WHITE BLOOD COUNT 6.45 K/uL (4.8-10.8)
[2017-07-22 14:12] LABS: ALT/SGPT 43 U/L (12-78); BLOOD UREA NITROGEN 22 mg/dl (7-18); BUN/CREATININE RATIO 20.1 (10-20); CALCIUM 9.2 mg/dl (8.5-10.1); CARBON DIOXIDE 28 mmol/L (21-32); CHLORIDE 105 mmol/L (98-107); CHOLESTEROL 168 mg/dl (0-200); CREATININE 1.08 mg/dl (0.60-1.20); GLUCOSE 84 mg/dl (70-99); POTASSIUM 4.6 mmol/L (3.5-5.1); SODIUM 139 mmol/L (136-145); TRIGLYCERIDES 149 mg/dl (0-150); VERY LOW DENSITY LIPOPROT CALC 30 mg/dl
[2017-07-22 14:22] LABS: ALB/GLOB RATIO 0.9 (0.9-2); ALKALINE PHOSPHATASE 148 U/L (45-117); AST/SGOT 28 U/L (15-37); CHOLESTEROL/HDL RATIO 3.6; HDL CHOLESTEROL 47 mg/dl; LDL CHOLESTEROL CALCULATED 91 mg/dl
[2017-07-23 07:05] LABS: ESTIMATED AVERAGE GLUCOSE 177 mg/dl; HA1C FLAG Normal (Normal)
== END | disposition home or self-care (01) ==
LOC: C.LABSPEC 13:03
PROVIDERS: ATTEND Family Medicine
DX: E11.9 Type 2 diabetes mellitus without complications (principal); I10 Essential (primary) hypertension; E03.9 Hypothyroidism, unspecified

== ENCOUNTER → 2017-10-25 | Outpatient (CLI) | payer OTHER ==
[2017-10-25 13:43] LABS: BASO % 0.9 %; BASO ABS # 0.05 K/uL (0-0.2); EOS % 2.5 %; EOS ABS # 0.14 K/uL (0-0.5); HEMATOCRIT 38.2 % (37-47); HEMOGLOBIN 12.3 g/dL (12.0-16.0); IG# 0.01 K/uL (0.00-0.02); LYMPH % 20.4 %; LYMPH ABS # 1.15 K/uL (1.2-3.4); MEAN CELL VOLUME 85.1 fL (80-100); MEAN CORPUSCULAR HEMOGLOBIN 27.4 pg (25-34); MEAN CORPUSCULAR HGB CONC 32.2 g/dl (32-36); MONO % 7.8 %; MONO ABS # 0.44 K/uL (0.11-0.59); NEUT % 68.2 %; NEUT ABS # 3.84 K/uL (1.4-6.5); PLATELET COUNT 254 K/uL (130-400); RED CELL DISTRIBUTION WIDTH CV 15.9 % (11.5-14.5); RED CELL DISTRIBUTION WIDTH SD 49.9 fL (36.4-46.3); WHITE BLOOD COUNT 5.63 K/uL (4.8-10.8)
[2017-10-25 15:02] LABS: ALBUMIN 3.3 gm/dl (3.4-5.0); ALKALINE PHOSPHATASE 138 U/L (45-117); ALT/SGPT 26 U/L (12-78); AST/SGOT 16 U/L (15-37); BLOOD UREA NITROGEN 21 mg/dl (7-18); CALCIUM 8.9 mg/dl (8.5-10.1); CARBON DIOXIDE 23 mmol/L (21-32); CHOLESTEROL 167 mg/dl (0-200); GLUCOSE 408 mg/dl (70-99); LDL CHOLESTEROL CALCULATED 98 mg/dl; POTASSIUM 5.1 mmol/L (3.5-5.1); SODIUM 134 mmol/L (136-145); TOTAL PROTEIN 7.1 gm/dl (6.4-8.2)
[2017-10-26 06:57] LABS: HEMOGLOBIN A1C 8.3 % (4.5-5.6)
== END | disposition home or self-care (01) ==
LOC: C.LABSPEC 12:39
PROVIDERS: ATTEND Family Medicine
DX: E11.9 Type 2 diabetes mellitus without complications (principal)

== ENCOUNTER 2018-09-05 10:55 | Inpatient (IN) ==
[2018-09-05] MEDS ORDERED: HYDROmorphone INJ 0.5 MG/0.5 ML SYR IV STA ×3 (11:18→20:58)
[2018-09-05] MEDS ORDERED: ONDANSETRON INJ 2 MG/ML 2 ML VIAL IV STA (11:18)
[2018-09-05] MEDS ORDERED: SODIUM CHLORIDE 0.9% 1000ML 500 ML IV ONE (11:18)
[2018-09-05 11:32] LABS: Appearance Urine Clear (Clear); Bilirubin Urine Negative (Negative); Color Urine Yellow; Epithelial Cell Urine Auto >30 /lpf (0-5); Glucose Urine UA Negative (Negative); Ketones Urine Negative (Negative); Leukocyte Esterase Urine Negative (Negative); Nitrite Urine Negative (Negative); Protein Urine 1+ (Negative); Specific Gravity Urine 1.012 (1.000-1.030); Urobilinogen Urine Negative (Negative)
[2018-09-05 11:45] LABS: Renal Epithelial Cells Urine 0-5 /lpf (0-5)
[2018-09-05 11:46] LABS: Bacteria Urine Automated 1+ (Negative)
--- NOTE | 2018-09-05 12:04 | Emergency Department Note ---
History of Present Illness General Chief complaint: Illness Stated complaint: CAN'T WALK Time Seen by Provider: 09/05/18 11:06 History of Present Illness Maximum Pain Intensity: 10 This patient is a 63-year-old female who presents to the emergency department complaining of excruciating left leg pain that has gotten progressively worse over the last several days. The patient has a history of peripheral vascular disease. She underwent TPA of her left femoropopliteal graft last week. Initially, the pain was not very intense. Since she has been home, it has worsened. She describes as a searing pain that is worse with movement. She has been taking oxycodone with no relief. The patient also had 2 episodes of vomiting. She denies any abdominal pain. No diarrhea. She has not had a bowel movement in several days, which she relates to the oxycodone. She denies any fever or chills. The patient contacted her vascular surgeon today who told her to come the emergency department for evaluation. Home Medications Home Medications Medication Instructions Recorded Confirmed Type atorvastatin [Lipitor] 80 mg PO QAM 05/15/18 09/05/18 History clopidogrel [Plavix] 75 mg PO QAM 05/15/18 09/05/18 History levothyroxine 175 mcg PO QAM 05/16/18 09/05/18 History linaclotide 2 tab PO QAM 05/16/18 09/05/18 History metformin 1,000 mg PO BID 05/16/18 09/05/18 History pantoprazole 40 mg PO QAM 05/16/18 09/05/18 History docusate sodium 100 mg capsule 100 mg PO BID 05/29/18 09/05/18 History insulin aspart U-100 100 unit/mL 12 - 22 units SQ TID ml 05/29/18 09/05/18 History subcutaneous pen ipratropium 20 mcg-albuterol 100 1 puffs INH QID PRN 05/29/18 09/05/18 History mcg/actuation mist for inhalation aspirin [Ecotrin Low Strength] 81 mg PO QAM 06/07/18 09/05/18 History warfarin [Coumadin] 5 mg PO DAILY #30 tab 09/01/18 09/05/18 Rx albuterol sulfate [Ventolin HFA] 2 puff INHALATION Q4 PRN 09/02/18 09/05/18 History carvedilol [Coreg] 25 mg PO BID 09/02/18 09/05/18 History cholecalciferol (vitamin D3) 2,000 unit PO DAILY 09/02/18 09/05/18 History [D3-2000] glipizide [Glucotrol] 5 mg PO UD 09/02/18 09/05/18 History insulin detemir U-100 [Levemir 80 units SUBCUT HS 09/02/18 09/05/18 History U-100 Insulin] sacubitril-valsartan [Entresto] 1 tab PO BID 09/02/18 09/05/18 History torsemide 2 tabs PO DAILY 09/02/18 09/05/18 History Allergies Allergy/AdvReac Type Severity Reaction Status Date / Time amlodipine Allergy Intermediate Unknown Verified 09/05/18 12:37 Penicillins Allergy Unknown BUMPY RASH Verified 09/05/18 12:37 lisinopril AdvReac Intermediate Cough Verified 09/05/18 12:37 Past Med/Surg History Medical History Anemia CHRONIC- BASELINE HGB RANGE 8'S PER CHART REVIEW HLD (hyperlipidemia) Obesity CAD (coronary artery disease) S/P CABG X3 (2005) PAD (peripheral artery disease) S/P MULTIPLE ENDOVASCULAR INTERVENTIONS HTN (hypertension) Diabetes mellitus IDDM Aortic stenosis "MODERATE" PER 2017 ECHO (LUIS MANUEL 0.97 CM2, MG 18.0 MMHG) CKD (chronic kidney disease) DARÍO 05/2018 IMPROVED S/P HYDRATION; HISTORY CKD Surgical History S/P CABG x 3 2005 S/P femoral-popliteal bypass surgery H/O section H/O fasciotomy S/P insertion of iliac artery stent Thrombosis of left femoral-femoral bypass graft Family History Other Family history non-contributory Social History Current Living Situation: Family Current Living Situation Comment: lives with elaine Feels Safe at Home: Yes Smoking Status: Current every day smoker Tobacco Type: cigarettes Second Hand Exposure: No Hx Alcohol Use: No Hx Substance Use: No Beliefs That Will Affect Care: None Preferred Language: Comoran Review of Systems A total of 10 systems reviewed and were otherwise negative Physical Exam Vital Signs Vital Signs - 24 hr 09/05/18 11:03 09/05/18 12:30 09/05/18 12:38 Temperature 36.7 C Temperature Source Oral Sepsis Recent Fever Within 48 Hours No Sepsis New/Unexplained Change in Mental Status No Sepsis Action Taken by Nursing No Action Required Pulse Rate 75 86 85 Respiratory Rate 16 20 22 Respiratory Effort / Characteristics Respiratory Depth Normal Respiratory Pattern Blood Pressure 167/83 H Blood Pressure Mean 111 Pulse Oximetry 97 88 L 99 Oxygen Delivery Method Room Air Room Air Nasal Cannula Oxygen Flow Rate 2 09/05/18 12:57 Temperature Temperature Source Sepsis Recent Fever Within 48 Hours Sepsis New/Unexplained Change in Mental Status Sepsis Action Taken by Nursing Pulse Rate Respiratory Rate 22 Respiratory Effort / Characteristics Non-Labored Spontaneous Respiratory Depth Normal Respiratory Pattern Regular Blood Pressure Blood Pressure Mean Pulse Oximetry 92 Oxygen Delivery Method Room Air Oxygen Flow Rate Constitutional WD/WN, vitals as above Eyes EOM intact bilaterally ENMT external ear and nose normal, oropharynx normal Neck trachea midline Respiratory normal respiratory effort, lungs clear to auscultation Cardiovascular Systolic murmur heard best at the right upper sternal border Left lower extremity pulses: With the bedside Doppler, I confirmed a left femoral pulse, left popliteal pulse and a left posterior tibialis pulse. I was unable to confirm the dorsalis pedis pulse. Gastrointestinal (Abdomen) normal bowel sounds, soft, nontender, no hepatosplenomegaly Musculoskeletal Significant warmth, erythema and tenderness noted particularly to the left foot. Incisional scar is noted both medially and laterally to the left calf. Skin no rashes, warm and dry Neurologic Alert and oriented x3. No focal motor deficits. Psychiatric Acting appropriately Course Patient was seen and examined Vital signs including blood pressure were reviewed medications list was verified with patient Labs were obtained, and a saline lock was established The patient was given Dilaudid 0.5 mg for pain. She was hydrated with 500 cc normal saline. I spoke with vascular surgery. The patient was also seen and examined by my supervising physician who is in agreement with my plan Imaging was performed Upon reevaluation, the patient was still complaining of pain. She was ordered Dilaudid 0.5 mg IV. I had a lengthy discussion with the patient and the patient's regarding her workup. They voiced understanding, and were in agreement with admission. The case was discussed with case management and subsequently the [facility] service. They kindly agreed to evaluate the patient for possible admission Consultations Consultation #1: Sylvia Silva PA-C vascular sx Administered Medications Discontinued Medications Fentanyl Citrate (Fentanyl Citrate) 50 mcg IV NOW STA Stop: 09/05/18 14:22 Last Admin: 09/05/18 14:54 Dose: Not Given Hydromorphone HCl (Dilaudid) 0.5 mg IV NOW STA Stop: 09/05/18 11:19 Last Admin: 09/05/18 11:48 Dose: 0.5 mg Hydromorphone HCl (Dilaudid) 0.5 mg IV NOW STA Stop: 09/05/18 12:38 Last Admin: 09/05/18 12:41 Dose: 0.5 mg Sodium Chloride (Nss 1000ml) 500 mls @ 999 mls/hr IV .Q31M ONE Stop: 09/05/18 11:48 Last Infusion: 09/05/18 12:12 Dose: 0 mls/hr Admin: 09/05/18 11:49 Dose: 999 mls/hr Ondansetron HCl (Zofran) 4 mg IV NOW STA Stop: 09/05/18 11:19 Last Admin: 09/05/18 11:49 Dose: 4 mg Medical Decision Making Medical Records Attestation: I reviewed the patient's medical records. Home Medications Current Medication List: was personally reviewed by me Laboratory Data Attestation: I reviewed the patient's lab results. Result diagrams: 09/05/18 11:45 09/05/18 11:45 Lab Results 09/05/18 09/05/18 09/05/18 Range/Units 11:25 11:45 11:45 WBC 11.33 H (4.8-10.8) K/uL RBC 3.12 L (4.2-5.4) M/uL Hgb 9.1 L (12.0-16.0) g/dL POC Hgb (12.0-16.0) g/dl Hct 27.2 L (37-47) % POC Hct (37-47) % MCV 87.2 (80-100) fL MCH 29.2 (25-34) pg MCHC 33.5 (32-36) g/dL RDW Std Deviation 47.3 H (36.4-46.3) fL RDW Coeff of Chris 15.0 H (11.5-14.5) % Plt Count 265 (130-400) K/uL MPV 9.5 (7.4-10.4) fL Immature Gran % (Auto) 0.3 % Neut % (Auto) 67.5 % Lymph % (Auto) 19.1 % [place] % (Auto) 11.8 % Eos % (Auto) 0.9 % Baso % (Auto) 0.4 % Immature Gran # (Auto) 0.03 H (0.00-0.02) K/uL Neut # (Auto) 7.66 H (1.4-6.5) K/uL Lymph # (Auto) 2.16 (1.2-3.4) K/uL [place] # (Auto) 1.34 H (0.11-0.59) K/uL Eos # (Auto) 0.10 (0-0.5) K/uL Baso # (Auto) 0.04 (0-0.2) K/uL PT 45.0 H (9.0-12.0) Seconds INR 4.9 H (0.9-1.1) APTT 43.2 H (21.0-31.0) Seconds PTT Ratio 1.7 POC Sodium (135-144) mEq/L Sodium (136-145) mmol/L POC Potassium (3.3-5.0) mEq/L Potassium (3.5-5.1) mmol/L POC Chloride (101-112) mEq/L Chloride (98-107) mmol/L Carbon Dioxide (21-32) mmol/L POC Total CO2 (24-31) mEq/l Anion Gap (3-11) POC Anion Gap (16-25) mmol/L POC BUN (7-18) mg/dl BUN (7-18) mg/dl Creatinine (0.6-1.2) mg/dl POC Creatinine (0.6-1.3) mg/dl Est Cr Clr Drug Dosing ml/min Est GFR ( Amer) Est GFR (Non-Af Amer) BUN/Creatinine Ratio (10-20) Glucose (70-99) mg/dl POC Glucose (other) (70-99) mg/dl Lactate (0.4-2.0) mmol/L Calcium (8.5-10.1) mg/dl POC Ioniz Calcium Joesph (1.12-1.32) mmol/l Total Bilirubin (0.2-1) mg/dl AST (15-37) U/L ALT (12-78) U/L Alkaline Phosphatase (45-117) U/L Total Protein (6.4-8.2) gm/dl Albumin (3.4-5.0) gm/dl Globulin (2.5-4.0) gm/dl Albumin/Globulin Ratio (0.9-2) Urine Color Yellow Urine Appearance Clear (Clear) Urine pH 5.0 (4.5-7.5) Ur Specific Watson 1.012 (1.000-1.030) Urine Protein 1+ H (Negative) Urine Glucose (UA) Negative (Negative) Urine Ketones Negative (Negative) Urine Blood Trace H (Negative) Urine Nitrite Negative (Negative) Urine Bilirubin Negative (Negative) Urine Urobilinogen Negative (Negative) Ur Leukocyte Esterase Negative (Negative) Urine WBC (Auto) 1-5 (0-5) /hpf Urine RBC (Auto) 0-4 (0-4) /hpf U Hyaline Cast (Auto) 1-5 (0-5) /lpf U Epithel Cells (Auto) >30 H (0-5) /lpf Urine Bacteria (Auto) 1+ H (Negative) Ur Renal Epithelial Cell 0-5 (0-5) /lpf Granular Casts 1-5 H (0) /lpf WBC Casts 1-5 H (0) /lpf Urine Yeast Not Reportable 09/05/18 09/05/18 09/05/18 Range/Units 11:45 11:45 12:04 WBC (4.8-10.8) K/uL RBC (4.2-5.4) M/uL Hgb (12.0-16.0) g/dL POC Hgb 8.8 L (12.0-16.0) g/dl Hct (37-47) % POC Hct 26 L (37-47) % MCV (80-100) fL MCH (25-34) pg MCHC (32-36) g/dL RDW Std Deviation (36.4-46.3) fL RDW Coeff of Chris (11.5-14.5) % Plt Count (130-400) K/uL MPV (7.4-10.4) fL Immature Gran % (Auto) % Neut % (Auto) % Lymph % (Auto) % [place] % (Auto) % Eos % (Auto) % Baso % (Auto) % Immature Gran # (Auto) (0.00-0.02) K/uL Neut # (Auto) (1.4-6.5) K/uL Lymph # (Auto) (1.2-3.4) K/uL [place] # (Auto) (0.11-0.59) K/uL Eos # (Auto) (0-0.5) K/uL Baso # (Auto) (0-0.2) K/uL PT (9.0-12.0) Seconds INR (0.9-1.1) APTT (21.0-31.0) Seconds PTT Ratio POC Sodium 137 (135-144) mEq/L Sodium 134 L (136-145) mmol/L POC Potassium 3.4 (3.3-5.0) mEq/L Potassium 3.4 L (3.5-5.1) mmol/L POC Chloride 95 L (101-112) mEq/L Chloride 99 (98-107) mmol/L Carbon Dioxide 31 (21-32) mmol/L POC Total CO2 28 (24-31) mEq/l Anion Gap 4.0 (3-11) POC Anion Gap 18.0 (16-25) mmol/L POC BUN 38 H (7-18) mg/dl BUN 47 H (7-18) mg/dl Creatinine 3.24 H (0.6-1.2) mg/dl POC Creatinine 3.4 H (0.6-1.3) mg/dl Est Cr Clr Drug Dosing 19.3 ml/min Est GFR ( Amer) 16.6 Est GFR (Non-Af Amer) 14.4 BUN/Creatinine Ratio 14.4 (10-20) Glucose 82 (70-99) mg/dl POC Glucose (other) 83 (70-99) mg/dl Lactate 1.2 (0.4-2.0) mmol/L Calcium 8.6 (8.5-10.1) mg/dl POC Ioniz Calcium Joesph 1.08 L (1.12-1.32) mmol/l Total Bilirubin 0.4 (0.2-1) mg/dl AST 17 (15-37) U/L ALT 85 H (12-78) U/L Alkaline Phosphatase 226 H (45-117) U/L Total Protein 6.7 (6.4-8.2) gm/dl Albumin 3.0 L (3.4-5.0) gm/dl Globulin 3.7 (2.5-4.0) gm/dl Albumin/Globulin Ratio 0.8 L (0.9-2) Urine Color Urine Appearance (Clear) Urine pH (4.5-7.5) Ur Specific Watson (1.000-1.030) Urine Protein (Negative) Urine Glucose (UA) (Negative) Urine Ketones (Negative) Urine Blood (Negative) Urine Nitrite (Negative) Urine Bilirubin (Negative) Urine Urobilinogen (Negative) Ur Leukocyte Esterase (Negative) Urine WBC (Auto) (0-5) /hpf Urine RBC (Auto) (0-4) /hpf U Hyaline Cast (Auto) (0-5) /lpf U Epithel Cells (Auto) (0-5) /lpf Urine Bacteria (Auto) (Negative) Ur Renal Epithelial Cell (0-5) /lpf Granular Casts (0) /lpf WBC Casts (0) /lpf Urine Yeast Imaging Data Attestation: I personally reviewed and interpreted this imaging study as follows : Radiologist's Impression: Articular ultrasound of the left lower extremity IMPRESSION: 1. Limited sonographic visualization of the distal left popliteal artery though this is presumably patent given the patent lower leg vessels. This relate to postsurgical change. 2. Patent left femoral-popliteal bypass graft. 3. Patent lower leg vessels. 4. Normal ankle-brachial indices. KUB IMPRESSION: No acute process. Nonobstructive bowel pattern. The above report was generated using voice recognition software. It may contain grammatical, syntax or spelling errors. Electronically signed by: Darryl Fajardo M.D. 09/05/2018 2:55 PM Dictated: 09/05/18 1454 Transcribed: 09/05/18 1454 Prescription Drug Monitoring [place] Drug Monitoring Program reviewed and no issues identified Blood Pressure Blood Pressure Findings: Elevated blood pressure Blood Pressure Disposition: Referred to patients primary care provider MDM Narrative Differential diagnosis: Peripheral artery disease, occlusion, stenosis, revascularization pain, infectious etiology, DVT, among others This patient is a 63-year-old female who presents to the emergency department complaining of severe/worsening leg pain as noted above. On exam, she did have pulses. Her foot was exquisitely tender. The case was discussed with the patient's vascular surgeon. They recommended proceeding with an ultrasound. The femoropopliteal graft appears to be patent. The etiology of her pain at this point is unclear. It is possible that she is having revascularization pain. Of any note, the patient has acute renal failure-possibly exacerbated by her recent procedure. Her INR was also supratherapeutic. For these reasons, I do not feel comfortable sending the patient home. She will be evaluated by the [facility] hospitalist group for possible admission. Impression & Plan Acute renal failure Discharge Plan Visit Data Chief Complaint: Illness Stated Complaint: CAN'T WALK ED Provider: Les Diaz ED Midlevel Provider: Shyla Bella Discharge Problem: Acute renal failure Patient Disposition: Admitted As Inpatient Condition: Serious Forms Stand Alone Forms: My [facility], Important Visit Information Prescriptions Prescriptions: No Action ipratropium-albuterol [Combivent Respimat] 20-100 mcg/actuation mist 1 puffs INH QID PRN (Reason: Wheezing) RF: 0 docusate sodium [Colace] 100 mg capsule 100 mg PO BID RF: 0 insulin aspart U-100 [Novolog Flexpen U-100 Insulin] 100 unit/mL insulin pen 12 - 22 units SQ TID RF: 0 atorvastatin [Lipitor] 80 mg Tablet 80 mg PO QAM RF: 0 clopidogrel [Plavix] 75 mg tablet 75 mg PO QAM RF: 0 levothyroxine 175 mcg tablet 175 mcg PO QAM RF: 0 pantoprazole 40 mg tablet,delayed release (DR/EC) 40 mg PO QAM RF: 0 metformin 1,000 mg tablet 1,000 mg PO BID RF: 0 linaclotide 145 mcg capsule 2 tab PO QAM RF: 0 aspirin [Ecotrin Low Strength] 81 mg tablet,delayed release (DR/EC) 81 mg PO QAM RF: 0 warfarin [Coumadin] 5 mg tablet 5 mg PO DAILY Qty: 30 RF: 0 carvedilol [Coreg] 25 mg tablet 25 mg PO BID RF: 0 torsemide 20 mg tablet 2 tabs PO DAILY RF: 0 albuterol sulfate [Ventolin HFA] 90 mcg/actuation HFA aerosol inhaler 2 puff Inhalation Q4 PRN (Reason: Shortness Of Breath) RF: 0 glipizide [Glucotrol] 5 mg tablet 5 mg PO UD RF: 0 insulin detemir U-100 [Levemir U-100 Insulin] 100 unit/mL solution 80 units subcut HS RF: 0 cholecalciferol (vitamin D3) [D3-2000] 2,000 unit capsule 2,000 unit PO DAILY RF: 0 sacubitril-valsartan [Entresto] 97-103 mg tablet 1 tab PO BID RF: 0 Referrals Referrals: Derian Lutz DO [Primary Care Provider] -
[2018-09-05 12:10] LABS: Basophils # (auto) 0.04 K/uL (0-0.2); Basophils % (auto) 0.4 %; Eosinophils % (auto) 0.9 %; Hematocrit (blood only) 27.2 % (37-47); Hemoglobin 9.1 g/dL (12.0-16.0); Immature Granulocytes # (auto) 0.03 K/uL (0.00-0.02); Immature Granulocytes % (auto) 0.3 %; Lymphocytes # (auto) 2.16 K/uL (1.2-3.4); Lymphocytes % (auto) 19.1 %; Mean Corpuscular Hgb Conc 33.5 g/dL (32-36); Mean Corpuscular Volume 87.2 fL (80-100); Mean Platelet Volume 9.5 fL (7.4-10.4); Monocytes # (auto) 1.34 K/uL (0.11-0.59); Monocytes % (auto) 11.8 %; Neutrophils # (auto) 7.66 K/uL (1.4-6.5); Neutrophils % (auto) 67.5 %; Platelet Count 265 K/uL (130-400); RDW Standard Deviation 47.3 fL (36.4-46.3); Red Blood Count 3.12 M/uL (4.2-5.4); White Blood Count 11.33 K/uL (4.8-10.8)
[2018-09-05 12:16] LABS: iSTAT Hemoglobin 8.8 g/dl (12.0-16.0); iSTAT Ionized Calcium 1.08 mmol/l (1.12-1.32)
[2018-09-05 12:27] LABS: INR 4.9 (0.9-1.1); Partial Thromboplastin Ratio 1.7; Partial Thromboplastin Time 43.2 Seconds (21.0-31.0)
[2018-09-05 12:40] LABS: BUN Creatinine Ratio 14.4 (10-20); Calcium 8.6 mg/dl (8.5-10.1); Creatinine Clr Calc Pharmacy 19.3 ml/min; Est GFR (African American) 16.6; Est GFR (Non-African American) 14.4; Potassium 3.4 mmol/L (3.5-5.1)
[2018-09-05 12:43] LABS: Albumin Globulin Ratio 0.8 (0.9-2); Bilirubin,Total 0.4 mg/dl (0.2-1); Globulin 3.7 gm/dl (2.5-4.0); Total Protein 6.7 gm/dl (6.4-8.2)
--- NOTE | 2018-09-05 14:12 | Ultrasound Report ---
US arterial duplex LE LT CLINICAL HISTORY: 63 years-old Female presenting with LLE pain s/p fem-pop bypass and occlusion, stat us post graft revision on 08/31/2018. TECHNIQUE: Real-time grayscale and color and spectral Doppler ultrasound imaging of the left lower ex tremity arteries was performed. Measurements calculated based on NASCET criteria. COMPARISON: 09/02/2018. FINDINGS: LEFT: Graft: The arterial takeoff of the graft at the level of the common femoral artery is patent. Peak sy stolic velocity (PSV) proximal to the takeoff 120 cm/s and PSV in the proximal graft 90 cm/s, consist ent with no stenosis. More distally PSV 42-53 cm/s in the midportion of the graft and 38 cm/s distall y. The graft inserts onto the left popliteal artery. PSV distal to the anastomosis 47 cm/s. Monophasi c waveforms are evident throughout the graft without evidence of tardus et parvus morphology. Common femoral artery: Patent. Monophasic waveforms. PSV 304 cm/s. Deep femoral artery: Not interrogated. Superficial femoral artery: Not interrogated. Popliteal artery: Patent though there is shadowing of the distal popliteal artery. Monophasic wavefor ms. PSV 28-109 cm/s. Posterior tibial artery: Patent. Monophasic waveforms. PSV 42 cm/s. Peroneal artery: Patent. Monophasic waveforms. PSV 39 cm/s. Anterior tibial artery: Patent. Monophasic waveforms. PSV 26 cm/s. Dorsalis pedis: Patent. Monophasic waveforms. PSV 22 cm/s. ANKLE/BRACHIAL INDEX (ABEL): Brachial: Right: mmHg. Left: mmHg. Ankle (posterior tibial): Right: mmHg. Left: mmHg. Ankle (dorsalis pedis): Right: mmHg. Left: mmHg. Ankle/brachial index: Right: , Left: . Reference ranges: Normal Ankle/Brachial Index (ABEL) 1.0-1.4; 0.91-0.99 borderline; < or = 0.9 abnormal (0.7-0.89 mild, 0.51-0.69 moderate, < or = 0.5 severe peripheral arterial disease). Normal Toe/Brachial Index (TBI) > or = 0.6; < 0.6 abnormal (0.34-0.59 mild, 0.12-0.34 moderate, < or = 0.11 severe peripheral arterial disease). IMPRESSION: 1. Limited sonographic visualization of the distal left popliteal artery though this is presumably p atent given the patent lower leg vessels. This relate to postsurgical change. 2. Patent left femoral-popliteal bypass graft. 3. Patent lower leg vessels. 4. Normal ankle-brachial indices. Electronically signed by: Choco Velasco M.D. 09/05/2018 2:11 PM
[2018-09-05] MEDS ORDERED: fentaNYL citrate 100 MCG/2 ML VIAL IV STA (14:21)
--- NOTE | 2018-09-05 14:56 | XRay Report ---
XR KUB CLINICAL HISTORY: n/v abd pain constipation COMPARISON STUDY: No previous studies for comparison. FINDINGS: The soft tissues, psoas shadows, renal outlines and intestinal gas pattern appear normal. T here is no evidence for bowel obstruction. No abnormal abdominal calcifications are seen. Postoperati ve changes noted. Vascular stents and atherosclerotic change present. IMPRESSION: No acute process. Nonobstructive bowel pattern. The above report was generated using voice recognition software. It may contain grammatical, syntax or spelling errors. Electronically signed by: Darryl Fajardo M.D. 09/05/2018 2:55 PM
--- NOTE | 2018-09-05 17:00 | History & Physical Report ---
Date of Service September 05, 2018 Assessment & Plan (1) Acute foot pain: (2) PAD (peripheral artery disease): H/O femoropopliteal bypass in 2017. 08/31/18 had angiogram, mechanical thrombectomy with TPA mechanical thrombectomy with TPA, [employer]/stent to L femoropopliteal artery Presented with c/o increased L foot pain past several days. Denies fever/chills. In ER pt afebrile, P: 75, R: 16, BP: 167/83, 97% on RA. WBC: 11, lactate: 1.2. Was given dilaudid, fentanyl, zofran, 500ml NSS in ER. Arterial duplex LLE: 1. Limited sonographic visualization of the distal left popliteal artery though this is presumably patent given the patent lower leg vessels. This relate to postsurgical change. 2. Patent left femoral-popliteal bypass graft. 3. Patent lower leg vessels. 4. Normal ankle-brachial indices. -pending CRP, procalcitonin -pending blood cultures -will start daptomycin, rocephin empirically for possible infection -continue plavix -warfarin held tonight as INR: 4.9 -oxycodone, dilaudid prn pain -vascular surgery consult -ID consult -cbc in am (3) Acute renal failure (ARF): In Er Cr: 3.2. Was 3.5 on 09/02/18 and 1.4 on 08/30/18. Hx contrast dye induced nephropathy in fall 2017. hx CKD III -NSS 100ml/hr for total of 500ml and monitor with pt's hx systolic HF -monitor renal functions -try to avoid nephrotoxic agents when possible -nephrology consult (4) Supratherapeutic INR: INR: 4.9 No active bleeding -hold warfarin tonight -monitor INR (5) DM type 2 (diabetes mellitus, type 2): A1c: 5.7 on 05/2018 -hold glipizide, metformin -continue home levemir -novolog sliding scale per protocol (6) Anemia: Hgb: 9.1. At approx baseline -monitor H&H (7) CAD (coronary artery disease): s/p CABG x 3 in 2005. 05/2018 cardiac cath with patent grafts -no CP, SOB -continue carvedilol, ASA, statin (8) Chronic systolic heart failure: h/o ischemic cardiomyopathy. EF: 20-25% on echo 05/2018 -currently appears euvolemic -hold torsemide with DARÍO -continue entresto with careful monitoring (9) HTN (hypertension): -continue carvedilol, entresto (10) Hypothyroidism: TSH: 3.2 on 05/2018 -continue levothyroxine (11) COPD (chronic obstructive pulmonary disease): -continue albuterol neb prn -continue oxygen 2L NC HS (12) Tobacco use: -smoking cessation encouraged -nicotine patch DVT Prophylaxis -On warfarin, current INR: 4.9 Full Code as per discussion with pt Follows with Dr Derian Lutz for routine care Pt was seen with Dr Arambula. See addendum History of Present Illness Chief Complaint: Pt is 63 y/o F with PMH CAD s/p CABG x 3 in 2005, DM II, COPD, on 2L oxygen HS, hypothyroidism, HTN, chronic systolic CHF, ischemic cardiomyopathy EF: 20-25% on echo 05/2018, dyslipidemia, CKD III, PVD, h/o femoropopliteal bypass in 2016 presented to ER with c/o L foot pain. Patient recently admitted 08/30/18-09/01/18 and on 08/31/18 had angiogram, mechanical thrombectomy with TPA mechanical thrombectomy with TPA, [employer]/stent to L femoropopliteal artery. Pt seen in ER 09/02/18 for LLE pain and had arterial doppler LLE at that time with patent L femoropopliteal graft, Cr: 3.5, and pt signed out AMA. Pt states taking percocet 5/325 4 times day without much relief of LLE pain. She describes pain as burning and stabbing to left ankle and L foot. Reports noticing some redness/purple coloration to foot that is intermittent. Denies any discharge or red streaking. Denies any known fever/chills. reports vomited twice yesterday, no further vomiting. States last BM couple of days ago. Denies diaphoresis, STARK, dizziness, syncope, vision changes, neck pain, CP, SOB, orthopnea, palpitations, cough, sore throat, choking, otalgia, rhinorrhea, abdominal pain, paresthesias, weakness, extremity edema, rashes, urinary symptoms. Primary Care Provider: Derian Lutz Allergies Allergy/AdvReac Type Severity Reaction Status Date / Time amlodipine Allergy Intermediate Unknown Verified 09/05/18 12:37 Penicillins Allergy Unknown BUMPY RASH Verified 09/05/18 12:37 lisinopril AdvReac Intermediate Cough Verified 09/05/18 12:37 Home Medications Home Medications Medication Instructions Recorded Confirmed Type atorvastatin [Lipitor] 80 mg PO QAM 05/15/18 09/05/18 History clopidogrel [Plavix] 75 mg PO QAM 05/15/18 09/05/18 History levothyroxine 175 mcg PO QAM 05/16/18 09/05/18 History linaclotide 1 tab PO QAM 05/16/18 09/05/18 History metformin 1,000 mg PO BID 05/16/18 09/05/18 History pantoprazole 40 mg PO QAM 05/16/18 09/05/18 History docusate sodium 100 mg capsule 100 mg PO BID 05/29/18 09/05/18 History insulin aspart U-100 100 unit/mL 12 - 22 units SQ TID ml 05/29/18 09/05/18 History subcutaneous pen ipratropium 20 mcg-albuterol 100 1 puffs INH QID PRN 05/29/18 09/05/18 History mcg/actuation mist for inhalation aspirin [Ecotrin Low Strength] 81 mg PO QAM 06/07/18 09/05/18 History warfarin [Coumadin] 5 mg PO DAILY #30 tab 09/01/18 09/05/18 Rx albuterol sulfate [Ventolin HFA] 2 puff INHALATION Q4 PRN 09/02/18 09/05/18 History carvedilol [Coreg] 25 mg PO BID 09/02/18 09/05/18 History cholecalciferol (vitamin D3) 2,000 unit PO DAILY 09/02/18 09/05/18 History [D3-2000] glipizide [Glucotrol] 5 mg PO UD 09/02/18 09/05/18 History insulin detemir U-100 [Levemir 80 units SUBCUT HS 09/02/18 09/05/18 History U-100 Insulin] sacubitril-valsartan [Entresto] 1 tab PO BID 09/02/18 09/05/18 History torsemide 1 tabs PO DAILY 09/02/18 09/05/18 History oxycodone-acetaminophen 1 tab PO Q6H PRN 09/05/18 09/05/18 History Past Med/Surg History Medical History Tobacco use (Chronic) COPD (chronic obstructive pulmonary disease) (Chronic) Chronic systolic heart failure (Chronic) Anemia (Chronic) CHRONIC- BASELINE HGB RANGE 8'S PER CHART REVIEW HLD (hyperlipidemia) (Chronic) Obesity (Chronic) CAD (coronary artery disease) (Chronic) S/P CABG X3 (2005) PAD (peripheral artery disease) (Chronic) S/P MULTIPLE ENDOVASCULAR INTERVENTIONS HTN (hypertension) (Chronic) Aortic stenosis (Chronic) "MODERATE" PER 2017 ECHO (LUIS MANUEL 0.97 CM2, MG 18.0 MMHG) CKD (chronic kidney disease) (Chronic) DARÍO 05/2018 IMPROVED S/P HYDRATION; HISTORY CKD Surgical History S/P CABG x 3 (Chronic) 2005 S/P femoral-popliteal bypass surgery (Chronic) H/O section H/O fasciotomy S/P insertion of iliac artery stent Thrombosis of left femoral-femoral bypass graft Social History Current Living Situation: Family Current Living Situation Comment: lives with daughter Other Information That Helps Us Care for You: No Feels Safe at Home: Yes Safety Concerns: Feels Safe At This Time Smoking Status: Current every day smoker Tobacco Type: cigarettes Cigarettes per Day: </= 20 Do You Dip or Chew Tobacco: No Tobacco Cessation Education Requested by Patient: No Hx Alcohol Use: No Hx Substance Use: No Beliefs That Will Affect Care: None Preferred Language: Azeri Communication Ability: Effective Local Announcer Required: No Review of Systems All systems reviewed & are unremarkable except as noted in HPI & below Physical Exam 2 Vital Signs (Past 24 Hours): Last Vital Signs Temp 36.7 C 09/05/18 11:03 Pulse 85 09/05/18 12:38 Resp 22 09/05/18 12:57 BP 167/83 H 09/05/18 11:03 Pulse Ox 92 09/05/18 12:57 Physical Exam: General: no distress, WDWN Head: normocephalic, atraumatic Eyes: PERRL, EOM's intact, conjunctiva non-injected, anicteric ENT: normal inspection external ears except for dry scab noted to right external ear canal, nose, mucous membranes moist Neck: supple, trachea midline, non-tender Lungs: clear, no respiratory distress, no wheezing/rhonchi/rales CV: RRR, systolic murmur, no JVD, no pretibial edema Abd: normal BS, soft, non-tender Ext: no cyanosis, no calf tenderness, LLE: +healed surgical scars, leg non- tender to palpation, foot slight erythematous coloration, no red streaking, skin warm to touch, +moderate pain to light palpation entire L foot, brisk capillary refill, sensation to light touch intact Neuro: A&O x 3, no focal deficits noted, normal affect Skin: warm, dry Results & Data Laboratory Results Short CBC 09/05/18 Range/Units 11:45 WBC 11.33 H (4.8-10.8) K/uL Hgb 9.1 L (12.0-16.0) g/dL Hct 27.2 L (37-47) % Plt Count 265 (130-400) K/uL BMP 09/05/18 11:45 Sodium 134 L Potassium 3.4 L Chloride 99 Carbon Dioxide 31 BUN 47 H Creatinine 3.24 H Glucose 82 Calcium 8.6 Liver Function 09/05/18 Range/Units 11:45 Total Bilirubin 0.4 (0.2-1) mg/dl AST 17 (15-37) U/L ALT 85 H (12-78) U/L Alkaline Phosphatase 226 H (45-117) U/L Albumin 3.0 L (3.4-5.0) gm/dl Urine 09/05/18 Range/Units 11:25 Urine Color Yellow Urine Appearance Clear (Clear) Urine pH 5.0 (4.5-7.5) Ur Specific [place] 1.012 (1.000-1.030) Urine Protein 1+ H (Negative) Urine Glucose (UA) Negative (Negative) Diagnostic Findings KUB XRAY: IMPRESSION: No acute process. Nonobstructive bowel pattern. ARTERIAL DUPLEX LLE: IMPRESSION: 1. Limited sonographic visualization of the distal left popliteal artery though this is presumably patent given the patent lower leg vessels. This relate to postsurgical change. 2. Patent left femoral-popliteal bypass graft. 3. Patent lower leg vessels. 4. Normal ankle-brachial indices. Supervising Physician Co-Signing Physician Notes HISTORY: Record reviewed. Patient interviewed and examined in the ED. Care coordinated with Tresa Hurst PA-C. Please refer to her documentation for patient's history. Briefly, 63 YO female with history of ischemic heart disease, aortic stenosis, peripheral vascular disease, and other problems. S/P left fem-pop bypass. Admitted 08/30/18 with graft occlusion. Angiography of LLE, mechanical thrombectomy, thrombolytic therapy, and PTCA performed 08/31/18. Discharged to home 09/01/18. Presented to ED today with left foot pain. Denies fever or chills. She has been taking her anti-thrombotic meds as instructed. EXAM: General- no distress Lungs- clear to auscultation; no respiratory distress Cardiovascular- RRR; IV/ systolic murmur at base; no gallop; no JVD Abdomen- + bowel sounds, soft, nontender Extremities- healed incision left medial thigh; healed fasciotomy wound left medial calf; trace left pretibial edema; left foot erythematous and warm, capillary refill 1 sec; pedal pulses not palpable Neuro- alert, oriented Skin- warm & dry DATA: WBC 11,330. INR 4.9. BUN 47, creatinine 3.24. Lactate 1.2. C-reactive protein 16. Procalcitonin 0.64. Other lab studies as noted. Arterial duplex LLE was somewhat limited. Fem-pop bypass graft was patent, lower leg vessels were patent. ASSESSMENT AND PLAN: Left foot pain. Peripheral vascular disease, s/p recent management of occluded left fem-pop bypass graft. Good capillary refill. Arterial duplex as noted. ? cellulitis. Check blood cultures. Empiric Rx with daptomycin and ceftriaxone. Vascular Surgery and ID consulted. Acute kidney injury. Creat 1.44 08/30 -->3.24 today. S/P angiogram LLE 08/31/18. Nephrology consulted. Elevated INR. Follow and titrate warfarin. Please refer to JESSICA Ayala's documentation for discussion of other issues. _ (1) Acute foot pain Laterality: left Qualified Code(s): M79.672 - Pain in left foot (2) Acute renal failure (ARF) Acute renal failure type: unspecified Qualified Code(s): N17.9 - Acute kidney failure, unspecified
[2018-09-05] MEDS ORDERED: HYDROmorphone INJ 0.5 MG/0.5 ML SYR IV PRN (19:09)
[2018-09-05] MEDS ORDERED: POLYETHYLENE (MIRALAX) 17 GM PACK PO PRN (19:09)
[2018-09-05] MEDS ORDERED: GLUCOSE 40% GEL 15 GM TUBE PO PRN (19:09)
[2018-09-05] MEDS ORDERED: ALBUTEROL 0.083% NEBU SOLN 3 ML VIAL NEB PRN (19:09)
[2018-09-05] MEDS ORDERED: NITROGLYCERIN SL 0.4 MG/TAB TAB SL PRN (19:09)
[2018-09-05] MEDS ORDERED: GLUCOSE 10 TABS/TUBE PO PRN (19:09)
[2018-09-05] MEDS ORDERED: GLUCAGON FOR INJ 1 MG VIAL SQ PRN (19:09)
[2018-09-05] MEDS ORDERED: DEXTROSE 50% 50 ML SYRINGE IV PRN (19:09)
[2018-09-05] MEDS ORDERED: DAPTOMYCIN CONSULT ACTIVE PRN (19:30)
[2018-09-05] MEDS ORDERED: SODIUM CHLORIDE 0.9% 500 ML IV SCH (20:00)
[2018-09-05] MEDS ORDERED: DAPTOmycin 250 MG in SYRINGE 0 ML IV SCH (20:00)
[2018-09-05] MEDS: OXYCODONE HCL IR 5 MG TAB (IMMEDIATE RELEASE) PO PRN (20:36)
[2018-09-05] MEDS: cefTRIAXone SODIUM 1,000 MG in DEXTROSE 5% 50 ML IV SCH (20:38)
[2018-09-05] MEDS: CARVEDILOL 25 MG TAB PO SCH (20:38)
[2018-09-05] MEDS: DOCUSATE SODIUM 100 MG CAP PO SCH (20:39)
[2018-09-05] MEDS ORDERED: SACUBITRIL-VALSARTAN 49/51 MG TAB PO SCH (21:00)
[2018-09-05] MEDS: INSULIN ASPART 100 UNITS/ML 3 ML PEN SC SCH (21:39)
[2018-09-05] MEDS: INSULIN DETEMIR FLEXPEN/FLEX TOUCH 100 UNITS/ML 3ML SC SCH (22:04)
[2018-09-05] MEDS: HYDROmorphone INJ 1 MG/ML SYRINGE IV PRN (23:20)
[2018-09-06] MEDS: LINZESS: ORDER AWAITING ACTION SCH ×3 (00:52→14:08)
[2018-09-06] MEDS: ONDANSETRON INJ 2 MG/ML 2 ML VIAL IV PRN ×2 (01:30→11:03)
[2018-09-06] MEDS: HYDROmorphone INJ 1 MG/ML SYRINGE IV PRN ×5 (04:37→21:37)
[2018-09-06] MEDS: LEVOTHYROXINE SODIUM 175 MCG TABLET PO SCH (05:52)
[2018-09-06 06:43] LABS: Basophils # (auto) 0.03 K/uL (0-0.2); Basophils % (auto) 0.3 %; Eosinophils # (auto) 0.09 K/uL (0-0.5); Hematocrit (blood only) 28.1 % (37-47); Hemoglobin 8.9 g/dL (12.0-16.0); Immature Granulocytes # (auto) 0.01 K/uL (0.00-0.02); Immature Granulocytes % (auto) 0.1 %; Lymphocytes % (auto) 20.2 %; Mean Corpuscular Hgb Conc 31.7 g/dL (32-36); Mean Corpuscular Volume 90.1 fL (80-100); Mean Platelet Volume 9.1 fL (7.4-10.4); Monocytes % (auto) 13.5 %; Neutrophils # (auto) 5.79 K/uL (1.4-6.5); Neutrophils % (auto) 64.9 %; Platelet Count 235 K/uL (130-400); RDW Coefficient of Variation 15.1 % (11.5-14.5); RDW Standard Deviation 49.2 fL (36.4-46.3); Red Blood Count 3.12 M/uL (4.2-5.4); White Blood Count 8.92 K/uL (4.8-10.8)
[2018-09-06 07:10] LABS: RBC Morphology Unremarkable
[2018-09-06 07:18] LABS: Albumin Globulin Ratio 0.6 (0.9-2); Albumin Level 2.6 gm/dl (3.4-5.0); BUN Creatinine Ratio 14.2 (10-20); Bilirubin,Total 0.3 mg/dl (0.2-1); Calcium 8.6 mg/dl (8.5-10.1); Creatinine Clr Calc Pharmacy 20.9 ml/min; Est GFR (African American) 18.6; Est GFR (Non-African American) 16.1; Globulin 4.1 gm/dl (2.5-4.0); Magnesium 2.1 mg/dl (1.8-2.4); Phosphorus 5.2 mg/dl (2.5-4.9); Potassium 3.8 mmol/L (3.5-5.1); Total Protein 6.7 gm/dl (6.4-8.2)
[2018-09-06 07:29] LABS: INR 3.1 (0.9-1.1)
[2018-09-06] MEDS: OXYCODONE HCL IR 5 MG TAB (IMMEDIATE RELEASE) PO PRN ×2 (07:29→19:29)
[2018-09-06] MEDS: NICOTINE 21 MG/24 HR TDSY TD SCH (08:33)
[2018-09-06] MEDS: ASPIRIN 81 MG ECTAB PO SCH (08:33)
[2018-09-06] MEDS: CHOLECALCIFEROL 1,000 UNITS TAB PO SCH (08:35)
[2018-09-06] MEDS: DOCUSATE SODIUM 100 MG CAP PO SCH ×2 (08:36→20:17)
[2018-09-06] MEDS: CARVEDILOL 25 MG TAB PO SCH ×2 (08:36→20:15)
[2018-09-06] MEDS: PANTOprazole 40 MG TAB PO SCH (08:36)
[2018-09-06] MEDS: ATORVASTATIN 40 MG TAB PO SCH (08:36)
[2018-09-06] MEDS: INSULIN ASPART 100 UNITS/ML 3 ML PEN SC SCH ×4 (08:38→20:26)
[2018-09-06] MEDS: INSULIN DETEMIR FLEXPEN/FLEX TOUCH 100 UNITS/ML 3ML SC SCH (08:39)
[2018-09-06] MEDS: CLOPIDOGREL BISULFATE 75 MG TAB PO SCH (08:40)
--- NOTE | 2018-09-06 08:58 | Nephrology Consultation ---
Date of Consultation September 06, 2018 Assessment & Plan (1) Acute on chronic renal failure: Her creatinine was 1.4 on 08/30, 3.6 on 09/02, 3.2 on 09/05 when she was admitted for L foot pain, slight improvement today chemistries acceptable UA suggestive of ATN; could consider atheroembolic phenomena, vasculitis but these are far less likely than ATN c/b chronic systolic HF w/ EF 20% -agree w/ holding sacubitril/valsartan and diuretics for today -cont renally dosed diuretics; dapto is low volume (syringe); ceftriaxone in D5W 60 mL -did order 1.5L FR and <2 gm Na diet and daily standing wts -daily bmp; today's chemistries acceptable -ordered complement for AM for completeness (ref lab) Present on Admission?: Yes History of Present Illness Reason for Consultation: DARÍO Requesting Physician: Dr Arambula Attending Physician: Helga Estrada MD History of Present Illness 63 y/o F whom I'm asked to see for acute renal failure. PMH includes DM on insulin, PVD, COPD on hs, CAD s/b 2005 3V cabg,, ischemic SURFACE [employer] EF 20-25% 2017, ckd3. She was admitted last evening w/ a few days of stabbing L foot/ ankle pain and intermittent redness/purplish discolorations after recent interventions on occluded fem-pop bypass graft w/ creatinine from 1.4 (OP baseline in epic 1.2-1.4) on 08/30 up to 3.6 day that she signed herself out AMA from recent admission, 3.2 on yesterday's admission, and 3.0 today. She underwent 08/31 angiogram, thrombectomy mechanical and w/ TPA, and L femoropopliteal arterial stent. Signed out AMA. Takes torsemide, sacubitril/ valsartan, metformin as OP. Allergies Allergy/AdvReac Type Severity Reaction Status Date / Time amlodipine Allergy Intermediate Unknown Verified 09/05/18 12:37 Penicillins Allergy Unknown BUMPY RASH Verified 09/05/18 12:37 lisinopril AdvReac Intermediate Cough Verified 09/05/18 12:37 Home Medications Home Medications Medication Instructions Recorded Confirmed Type atorvastatin [Lipitor] 80 mg PO QAM 05/15/18 09/05/18 History clopidogrel [Plavix] 75 mg PO QAM 05/15/18 09/05/18 History levothyroxine 175 mcg PO QAM 05/16/18 09/05/18 History linaclotide 1 tab PO QAM 05/16/18 09/05/18 History metformin 1,000 mg PO BID 05/16/18 09/05/18 History pantoprazole 40 mg PO QAM 05/16/18 09/05/18 History docusate sodium 100 mg capsule 100 mg PO BID 05/29/18 09/05/18 History insulin aspart U-100 100 unit/mL 12 - 22 units SQ TID ml 05/29/18 09/05/18 History subcutaneous pen ipratropium 20 mcg-albuterol 100 1 puffs INH QID PRN 05/29/18 09/05/18 History mcg/actuation mist for inhalation aspirin [Ecotrin Low Strength] 81 mg PO QAM 06/07/18 09/05/18 History warfarin [Coumadin] 5 mg PO DAILY #30 tab 09/01/18 09/05/18 Rx albuterol sulfate [Ventolin HFA] 2 puff INHALATION Q4 PRN 09/02/18 09/05/18 History carvedilol [Coreg] 25 mg PO BID 09/02/18 09/05/18 History cholecalciferol (vitamin D3) 2,000 unit PO DAILY 09/02/18 09/05/18 History [D3-2000] glipizide [Glucotrol] 5 mg PO UD 09/02/18 09/05/18 History insulin detemir U-100 [Levemir 18 units SUBCUT HS 09/02/18 09/06/18 History U-100 Insulin] sacubitril-valsartan [Entresto] 1 tab PO BID 09/02/18 09/05/18 History torsemide 1 tabs PO DAILY 09/02/18 09/05/18 History oxycodone-acetaminophen 1 tab PO Q6H PRN 09/05/18 09/05/18 History Patient History Medical History Tobacco use (Chronic) COPD (chronic obstructive pulmonary disease) (Chronic) Chronic systolic heart failure (Chronic) Anemia (Chronic) CHRONIC- BASELINE HGB RANGE 8'S PER CHART REVIEW HLD (hyperlipidemia) (Chronic) Obesity (Chronic) CAD (coronary artery disease) (Chronic) S/P CABG X3 (2005) PAD (peripheral artery disease) (Chronic) S/P MULTIPLE ENDOVASCULAR INTERVENTIONS HTN (hypertension) (Chronic) Aortic stenosis (Chronic) "MODERATE" PER 2017 ECHO (LUIS MANUEL 0.97 CM2, MG 18.0 MMHG) CKD (chronic kidney disease) (Chronic) DARÍO 05/2018 IMPROVED S/P HYDRATION; HISTORY CKD Surgical History S/P CABG x 3 (Chronic) 2006 S/P femoral-popliteal bypass surgery (Chronic) H/O section H/O fasciotomy S/P insertion of iliac artery stent Thrombosis of left femoral-femoral bypass graft Family History Other CAD (coronary artery disease) COPD (chronic obstructive pulmonary disease) Diabetes Social History Current Living Situation: Family Current Living Situation Comment: lives with daughter Other Information That Helps Us Care for You: No Feels Safe at Home: Yes Safety Concerns: Feels Safe At This Time Smoking Status: Current every day smoker Tobacco Type: cigarettes Cigarettes per Day: </= 20 Do You Dip or Chew Tobacco: No Tobacco Cessation Education Requested by Patient: No Hx Alcohol Use: No Hx Substance Use: No Beliefs That Will Affect Care: None Communication Ability: Effective Review of Systems Constitutional: + fatigue, + weakness and + anorexia (including prior to admission) Eyes: no worsening vision Ear, Nose, Mouth, Throat: no dry mouth Respiratory: + dyspnea (no change in chronic dyspnea) Cardiovascular: no chest pain, no palpitations and no edema Gastrointestinal: + vomiting (including NBNB this am after breakfast); no abdominal pain and no diarrhea/loose stools Genitourinary (Female): no dysuria, no urinary frequency, no urinary hesitancy and no urinary incontinence Musculoskeletal: + joint pain (L foot/ankle) Integumentary: + lesions (surgical wounds healing); no rash Neurologic: no gait abnormality, no localized weakness, no generalized weakness and no abnormal movements Psychiatric: no behavioral changes Endocrine: + fatigue Hematologic / Lymphatic: no easy bleeding Physical Exam 2 Vital Signs (Past 24 Hours): Last Vital Signs Temp 37 C 09/06/18 07:20 Pulse 63 09/06/18 07:20 Resp 20 09/06/18 07:20 BP 136/52 L 09/06/18 07:20 Pulse Ox 96 09/06/18 07:20 Constitutional: well developed and well nourished sitting up in bed d/t foot pain; on 02 nc, A& 0 x 3 Eyes: EOM intact bilaterally ENMT: Ears: no external ear abnormality Nose: no external nose abnormality Mouth: + dry oral mucous membranes Neck: no nuchal rigidity Respiratory: normal respiratory effort Auscultation: + diminished lung sounds Cardiovascular: RRR, no murmur, no edema (distant HS) Gastrointestinal (Abdomen): Inspection/Auscultation: normal bowel sounds Percussion/Palpation: abdomen soft; abdomen nontender Musculoskeletal: Extremities: strength 5/5 throughout Skin: no rashes, warm and dry several well healing incisions L leg Neurologic: awake Speech / Cognition: normal cognition Motor/Sensory: normal movement orona, fluent speech, no tremor Psychiatric: Orientation: alert and oriented x 3 Eye Contact: + fair eye contact Speech: normal rate/rhythm/volume of speech Thought Process: + circumstantial thought process Genitourinary: no oconnor Results & Data Laboratory Results Abnormal lab results 09/05/18 09/05/18 09/05/18 Range/Units 11:25 11:45 11:45 WBC 11.33 H (4.8-10.8) K/uL RBC 3.12 L (4.2-5.4) M/uL Hgb 9.1 L (12.0-16.0) g/dL POC Hgb (12.0-16.0) g/dl Hct 27.2 L (37-47) % POC Hct (37-47) % MCHC (32-36) g/dL RDW Std Deviation 47.3 H (36.4-46.3) fL RDW Coeff of Chris 15.0 H (11.5-14.5) % Immature Gran # (Auto) 0.03 H (0.00-0.02) K/uL Neut # (Auto) 7.66 H (1.4-6.5) K/uL [place] # (Auto) 1.34 H (0.11-0.59) K/uL PT 45.0 H (9.0-12.0) Seconds INR 4.9 H (0.9-1.1) APTT 43.2 H (21.0-31.0) Seconds Sodium (136-145) mmol/L Potassium (3.5-5.1) mmol/L POC Chloride (101-112) mEq/L POC BUN (7-18) mg/dl BUN (7-18) mg/dl Creatinine (0.6-1.2) mg/dl POC Creatinine (0.6-1.3) mg/dl POC Ioniz Calcium [place] (1.12-1.32) mmol/l Phosphorus (2.5-4.9) mg/dl ALT (12-78) U/L Alkaline Phosphatase (45-117) U/L C-Reactive Protein (0-0.29) mg/dl Albumin (3.4-5.0) gm/dl Globulin (2.5-4.0) gm/dl Albumin/Globulin Ratio (0.9-2) Procalcitonin (0-0.5) ng/ml Urine Protein 1+ H (Negative) Urine Blood Trace H (Negative) U Epithel Cells (Auto) >30 H (0-5) /lpf Urine Bacteria (Auto) 1+ H (Negative) Granular Casts 1-5 H (0) /lpf WBC Casts 1-5 H (0) /lpf 09/05/18 09/05/18 09/05/18 Range/Units 11:45 11:45 11:45 WBC (4.8-10.8) K/uL RBC (4.2-5.4) M/uL Hgb (12.0-16.0) g/dL POC Hgb (12.0-16.0) g/dl Hct (37-47) % POC Hct (37-47) % MCHC (32-36) g/dL RDW Std Deviation (36.4-46.3) fL RDW Coeff of Chris (11.5-14.5) % Immature Gran # (Auto) (0.00-0.02) K/uL Neut # (Auto) (1.4-6.5) K/uL [place] # (Auto) (0.11-0.59) K/uL PT (9.0-12.0) Seconds INR (0.9-1.1) APTT (21.0-31.0) Seconds Sodium 134 L (136-145) mmol/L Potassium 3.4 L (3.5-5.1) mmol/L POC Chloride (101-112) mEq/L POC BUN (7-18) mg/dl BUN 47 H (7-18) mg/dl Creatinine 3.24 H (0.6-1.2) mg/dl POC Creatinine (0.6-1.3) mg/dl POC Ioniz Calcium [place] (1.12-1.32) mmol/l Phosphorus (2.5-4.9) mg/dl ALT 85 H (12-78) U/L Alkaline Phosphatase 226 H (45-117) U/L C-Reactive Protein 16.00 H (0-0.29) mg/dl Albumin 3.0 L (3.4-5.0) gm/dl Globulin (2.5-4.0) gm/dl Albumin/Globulin Ratio 0.8 L (0.9-2) Procalcitonin 0.64 H (0-0.5) ng/ml Urine Protein (Negative) Urine Blood (Negative) U Epithel Cells (Auto) (0-5) /lpf Urine Bacteria (Auto) (Negative) Granular Casts (0) /lpf WBC Casts (0) /lpf 09/05/18 09/06/18 09/06/18 Range/Units 12:04 06:29 06:29 WBC (4.8-10.8) K/uL RBC 3.12 L (4.2-5.4) M/uL Hgb 8.9 L (12.0-16.0) g/dL POC Hgb 8.8 L (12.0-16.0) g/dl Hct 28.1 L (37-47) % POC Hct 26 L (37-47) % MCHC 31.7 L (32-36) g/dL RDW Std Deviation 49.2 H (36.4-46.3) fL RDW Coeff of Chris 15.1 H (11.5-14.5) % Immature Gran # (Auto) (0.00-0.02) K/uL Neut # (Auto) (1.4-6.5) K/uL [place] # (Auto) 1.20 H (0.11-0.59) K/uL PT 29.0 H (9.0-12.0) Seconds INR 3.1 H (0.9-1.1) APTT (21.0-31.0) Seconds Sodium (136-145) mmol/L Potassium (3.5-5.1) mmol/L POC Chloride 95 L (101-112) mEq/L POC BUN 38 H (7-18) mg/dl BUN (7-18) mg/dl Creatinine (0.6-1.2) mg/dl POC Creatinine 3.4 H (0.6-1.3) mg/dl POC Ioniz Calcium [place] 1.08 L (1.12-1.32) mmol/l Phosphorus (2.5-4.9) mg/dl ALT (12-78) U/L Alkaline Phosphatase (45-117) U/L C-Reactive Protein (0-0.29) mg/dl Albumin (3.4-5.0) gm/dl Globulin (2.5-4.0) gm/dl Albumin/Globulin Ratio (0.9-2) Procalcitonin (0-0.5) ng/ml Urine Protein (Negative) Urine Blood (Negative) U Epithel Cells (Auto) (0-5) /lpf Urine Bacteria (Auto) (Negative) Granular Casts (0) /lpf WBC Casts (0) /lpf 09/06/18 Range/Units 06:29 WBC (4.8-10.8) K/uL RBC (4.2-5.4) M/uL Hgb (12.0-16.0) g/dL POC Hgb (12.0-16.0) g/dl Hct (37-47) % POC Hct (37-47) % MCHC (32-36) g/dL RDW Std Deviation (36.4-46.3) fL RDW Coeff of Chris (11.5-14.5) % Immature Gran # (Auto) (0.00-0.02) K/uL Neut # (Auto) (1.4-6.5) K/uL [place] # (Auto) (0.11-0.59) K/uL PT (9.0-12.0) Seconds INR (0.9-1.1) APTT (21.0-31.0) Seconds Sodium (136-145) mmol/L Potassium (3.5-5.1) mmol/L POC Chloride (101-112) mEq/L POC BUN (7-18) mg/dl BUN 42 H (7-18) mg/dl Creatinine 2.95 H (0.6-1.2) mg/dl POC Creatinine (0.6-1.3) mg/dl POC Ioniz Calcium [place] (1.12-1.32) mmol/l Phosphorus 5.2 H (2.5-4.9) mg/dl ALT (12-78) U/L Alkaline Phosphatase 200 H (45-117) U/L C-Reactive Protein (0-0.29) mg/dl Albumin 2.6 L (3.4-5.0) gm/dl Globulin 4.1 H (2.5-4.0) gm/dl Albumin/Globulin Ratio 0.6 L (0.9-2) Procalcitonin (0-0.5) ng/ml Urine Protein (Negative) Urine Blood (Negative) U Epithel Cells (Auto) (0-5) /lpf Urine Bacteria (Auto) (Negative) Granular Casts (0) /lpf WBC Casts (0) /lpf Diagnostic Findings Dopplers LLE 1. Limited sonographic visualization of the distal left popliteal artery though this is presumably patent given the patent lower leg vessels. This relate to postsurgical change. 2. Patent left femoral-popliteal bypass graft. 3. Patent lower leg vessels. 4. Normal ankle-brachial indices. KUB no obstructive or acute process _ (1) Acute on chronic renal failure Acute renal failure type: with acute tubular necrosis Chronic kidney disease stage: stage 3 (moderate) Qualified Code(s): N17.0 - Acute kidney failure with tubular necrosis; N18.3 - Chronic kidney disease, stage 3 (moderate)
--- NOTE | 2018-09-06 09:48 | Infectious Disease Consult ---
Date of Consultation September 06, 2018 Assessment & Plan (1) Peripheral artery disease: no signs of infection noted.blood culture pending, if negative in am, would follow off of abx. suspect pain not related to infectious etiology, surgery eval pending. History of Present Illness Attending Physician: Helga Estrada MD pt admitted with leg pain, underwent vascular surgery on 08/31 - family at bedside state increased pain since d/c home. no f/c no drainage from wound. pt states pain 05/31 - does not improvement with rest. denies erythema of leg, sensation intact, no drainge or bleeding from wound. no prior abx. wbc mildly elevated in ER 11, now improved to 8. afebrile since admission. procalcitonin mildly elevated 0.6. on Dapto and rocephin, tolerating well. blood cultures pending. asking for increased pain meds. no abd pain, no n/v/d, no cp, sob, cough. UA negative, cxr negative, duplex showing patent vessels. ID consulted for dapto approval. Allergies Allergy/AdvReac Type Severity Reaction Status Date / Time amlodipine Allergy Intermediate Unknown Verified 09/05/18 12:37 Penicillins Allergy Unknown BUMPY RASH Verified 09/05/18 12:37 lisinopril AdvReac Intermediate Cough Verified 09/05/18 12:37 Home Medications Home Medications Medication Instructions Recorded Confirmed Type atorvastatin [Lipitor] 80 mg PO QAM 05/15/18 09/05/18 History clopidogrel [Plavix] 75 mg PO QAM 05/15/18 09/05/18 History levothyroxine 175 mcg PO QAM 05/16/18 09/05/18 History linaclotide 1 tab PO QAM 05/16/18 09/05/18 History metformin 1,000 mg PO BID 05/16/18 09/05/18 History pantoprazole 40 mg PO QAM 05/16/18 09/05/18 History docusate sodium 100 mg capsule 100 mg PO BID 05/29/18 09/05/18 History insulin aspart U-100 100 unit/mL 12 - 22 units SQ TID ml 05/29/18 09/05/18 History subcutaneous pen ipratropium 20 mcg-albuterol 100 1 puffs INH QID PRN 05/29/18 09/05/18 History mcg/actuation mist for inhalation aspirin [Ecotrin Low Strength] 81 mg PO QAM 06/07/18 09/05/18 History warfarin [Coumadin] 5 mg PO DAILY #30 tab 09/01/18 09/05/18 Rx albuterol sulfate [Ventolin HFA] 2 puff INHALATION Q4 PRN 09/02/18 09/05/18 History carvedilol [Coreg] 25 mg PO BID 09/02/18 09/05/18 History cholecalciferol (vitamin D3) 2,000 unit PO DAILY 09/02/18 09/05/18 History [D3-2000] glipizide [Glucotrol] 5 mg PO UD 09/02/18 09/05/18 History insulin detemir U-100 [Levemir 80 units SUBCUT HS 09/02/18 09/05/18 History U-100 Insulin] sacubitril-valsartan [Entresto] 1 tab PO BID 09/02/18 09/05/18 History torsemide 1 tabs PO DAILY 09/02/18 09/05/18 History oxycodone-acetaminophen 1 tab PO Q6H PRN 09/05/18 09/05/18 History Patient History Medical History Tobacco use (Chronic) COPD (chronic obstructive pulmonary disease) (Chronic) Chronic systolic heart failure (Chronic) Anemia (Chronic) CHRONIC- BASELINE HGB RANGE 8'S PER CHART REVIEW HLD (hyperlipidemia) (Chronic) Obesity (Chronic) CAD (coronary artery disease) (Chronic) S/P CABG X3 (2005) PAD (peripheral artery disease) (Chronic) S/P MULTIPLE ENDOVASCULAR INTERVENTIONS HTN (hypertension) (Chronic) Aortic stenosis (Chronic) "MODERATE" PER 2017 ECHO (LUIS MANUEL 0.97 CM2, MG 18.0 MMHG) CKD (chronic kidney disease) (Chronic) DARÍO 05/2018 IMPROVED S/P HYDRATION; HISTORY CKD Surgical History S/P CABG x 3 (Chronic) 2005 S/P femoral-popliteal bypass surgery (Chronic) H/O section H/O fasciotomy S/P insertion of iliac artery stent Thrombosis of left femoral-femoral bypass graft Family History Other CAD (coronary artery disease) COPD (chronic obstructive pulmonary disease) Diabetes Social History Current Living Situation: Family Current Living Situation Comment: lives with daughter Other Information That Helps Us Care for You: No Feels Safe at Home: Yes Safety Concerns: Feels Safe At This Time Smoking Status: Current every day smoker Tobacco Type: cigarettes Cigarettes per Day: </= 20 Do You Dip or Chew Tobacco: No Tobacco Cessation Education Requested by Patient: No Hx Alcohol Use: No Hx Substance Use: No Beliefs That Will Affect Care: None Preferred Language: Luxembourgish Communication Ability: Effective Chief Of Field Operations Required: No Review of Systems all remaining ros reviewed and are negative Physical Exam 2 Vital Signs (Past 24 Hours): Last Vital Signs Temp 37 C 09/06/18 07:20 Pulse 63 09/06/18 07:20 Resp 20 09/06/18 07:20 BP 136/52 L 09/06/18 07:20 Pulse Ox 96 09/06/18 07:20 Constitutional: WD/WN, vitals as above + acute distress Eyes: PERRL, conjunctivae normal, anicteric sclerae ENMT: external ear and nose normal, oropharynx normal Neck: normal visual inspection Respiratory: normal respiratory effort, lungs clear to auscultation Cardiovascular: RRR, no murmur, no edema Gastrointestinal (Abdomen): normal bowel sounds, soft, nontender, no hepatosplenomegaly Musculoskeletal: no cyanosis or clubbing, extremities motor strength 5/5 Skin: no rashes, warm and dry right leg wound healing, no surrounding warmth, eryhtema, edema, no induration or fluctuance. no drainge or bleeding. warm to touch. no discoloration Psychiatric: A+Ox3, euthymic affect
[2018-09-06] MEDS: CARBOHYDRATES FOR HYPOGLYCEMIA PO PRN ×2 (11:45→12:07)
--- NOTE | 2018-09-06 14:15 | Consultation ---
Date of Consultation September 06, 2018 Assessment & Plan (1) Peripheral artery disease: Pt's BPG and distal arteries appear patent. No indications for vascular intervention at this time. Present on Admission?: Yes (2) Acute foot pain: Pt with severe pain in LLE, possibly d/t ischemic neuropathy, having required multiple revascularizations d/t acute arterial occlusions in past. Will have pt eval by pain management. Patient was seen, examined, and chart reviewed. Agree with exam and treatment plan of the Vascular PA. Laterality: left Qualified Code(s): M79.672 - Pain in left foot Present on Admission?: Yes History of Present Illness Reason for Consultation: LLE foot pain, hx PAD, recent revascularization Attending Physician: Helga Estrada MD History of Present Illness 63 yo f with multiple medical problems, well known to Dr Gonzalez for severe PAD, admitted with severe L foot pain, seen in consultation today. Pt has undergone multiple revascularizations, most recently a thrombectomy of her LLE fem-pop prosthetic BPG with STEM MAKER/stenting of L pop art last week by Dr Gonzalez. Pt states has had severe pain in LLE even after revasc, and unable to ambulate d/t pain. Admits edema and erythema, warmth as well. Can't even stand to have anything touch it. Denies any other complaints. Art US demonstrates patent BPG and distal vessels to foot. Allergies Allergy/AdvReac Type Severity Reaction Status Date / Time amlodipine Allergy Intermediate Unknown Verified 09/05/18 12:37 Penicillins Allergy Unknown BUMPY RASH Verified 09/05/18 12:37 lisinopril AdvReac Intermediate Cough Verified 09/05/18 12:37 Home Medications Home Medications Medication Instructions Recorded Confirmed Type atorvastatin [Lipitor] 80 mg PO QAM 05/15/18 09/05/18 History clopidogrel [Plavix] 75 mg PO QAM 05/15/18 09/05/18 History levothyroxine 175 mcg PO QAM 05/16/18 09/05/18 History linaclotide 1 tab PO QAM 05/16/18 09/05/18 History metformin 1,000 mg PO BID 05/16/18 09/05/18 History pantoprazole 40 mg PO QAM 05/16/18 09/05/18 History docusate sodium 100 mg capsule 100 mg PO BID 05/29/18 09/05/18 History insulin aspart U-100 100 unit/mL 12 - 22 units SQ TID ml 05/29/18 09/05/18 History subcutaneous pen ipratropium 20 mcg-albuterol 100 1 puffs INH QID PRN 05/29/18 09/05/18 History mcg/actuation mist for inhalation aspirin [Ecotrin Low Strength] 81 mg PO QAM 06/07/18 09/05/18 History warfarin [Coumadin] 5 mg PO DAILY #30 tab 09/01/18 09/05/18 Rx albuterol sulfate [Ventolin HFA] 2 puff INHALATION Q4 PRN 09/02/18 09/05/18 History carvedilol [Coreg] 25 mg PO BID 09/02/18 09/05/18 History cholecalciferol (vitamin D3) 2,000 unit PO DAILY 09/02/18 09/05/18 History [D3-2000] glipizide [Glucotrol] 5 mg PO UD 09/02/18 09/05/18 History insulin detemir U-100 [Levemir 18 units SUBCUT HS 09/02/18 09/06/18 History U-100 Insulin] sacubitril-valsartan [Entresto] 1 tab PO BID 09/02/18 09/05/18 History torsemide 1 tabs PO DAILY 09/02/18 09/05/18 History oxycodone-acetaminophen 1 tab PO Q6H PRN 09/05/18 09/05/18 History Patient History Medical History Tobacco use (Chronic) COPD (chronic obstructive pulmonary disease) (Chronic) Chronic systolic heart failure (Chronic) Anemia (Chronic) CHRONIC- BASELINE HGB RANGE 8'S PER CHART REVIEW HLD (hyperlipidemia) (Chronic) Obesity (Chronic) CAD (coronary artery disease) (Chronic) S/P CABG X3 (2005) PAD (peripheral artery disease) (Chronic) S/P MULTIPLE ENDOVASCULAR INTERVENTIONS HTN (hypertension) (Chronic) Aortic stenosis (Chronic) "MODERATE" PER 2017 ECHO (LUIS MANUEL 0.97 CM2, MG 18.0 MMHG) CKD (chronic kidney disease) (Chronic) DARÍO 05/2018 IMPROVED S/P HYDRATION; HISTORY CKD Surgical History S/P CABG x 3 (Chronic) 2005 S/P femoral-popliteal bypass surgery (Chronic) H/O section H/O fasciotomy S/P insertion of iliac artery stent Thrombosis of left femoral-femoral bypass graft Family History Other CAD (coronary artery disease) COPD (chronic obstructive pulmonary disease) Diabetes Social History Current Living Situation: Family Current Living Situation Comment: lives with daughter Other Information That Helps Us Care for You: No Feels Safe at Home: Yes Safety Concerns: Feels Safe At This Time Smoking Status: Current every day smoker Tobacco Type: cigarettes Cigarettes per Day: </= 20 Do You Dip or Chew Tobacco: No Tobacco Cessation Education Requested by Patient: No Hx Alcohol Use: No Hx Substance Use: No Beliefs That Will Affect Care: None Communication Ability: Effective Review of Systems Constitutional: no fever, no chills, no sweats, no fatigue, no malaise and no weight loss Eyes: no blind spots and no problem reported Ear, Nose, Mouth, Throat: no hearing loss and no sore throat Respiratory: no cough, no dyspnea, no dyspnea on exertion and no hemoptysis Cardiovascular: no chest pain, no palpitations, no syncope, no claudication and no problem reported Gastrointestinal: no abdominal pain, no early satiety, no nausea, no vomiting, no cramping, no change in bowel habits, no diarrhea/loose stools and no blood in stools Musculoskeletal: + swelling (pain L foot); no back pain, no joint pain and no muscle weakness Integumentary: no rash, no non-healing lesions, no skin ulcer, no wounds and no erythema Neurologic: no localized weakness, no generalized weakness, no paralysis, no loss of sensation, no tingling, no numbness, no paresthesia, no seizure-like activity, no syncope, no headache(s) and no confusion Psychiatric: as per Subjective / HPI Hematologic / Lymphatic: no easy bleeding, no easy bruising, no coagulopathy, no night sweats and no unexplained weight loss Physical Exam 2 Vital Signs (Past 24 Hours): Last Vital Signs Temp 36.6 C 09/06/18 12:18 Pulse 62 09/06/18 12:18 Resp 18 09/06/18 12:18 BP 129/66 09/06/18 12:18 Pulse Ox 96 09/06/18 12:18 Constitutional: WD/WN, vitals as above well developed, well nourished, + ill appearing, + obese, + disheveled, cooperative, comfortable and + in distress Eyes: PERRL, conjunctivae normal, anicteric sclerae EOM intact bilaterally ENMT: external ear and nose normal, oropharynx normal Ears: no hearing impairment Nose: no nasal discharge Throat: no posterior oropharynx abnormality Neck: trachea midline, no thyromegaly no tracheal deviation, no neck crepitus and neck nontender Respiratory: able to speak in complete sentences; does not use accessory muscles, no cough, not tachypneic and no audible wheezes Auscultation: + diminished lung sounds; no rhonchi and no wheezes Cardiovascular: RRR, no murmur, no edema Rate/Rhythm: regular rate and regular rhythm Heart Sounds: no gallop and no murmur Vessels: normal peripheral pulses, femoral pulses present, posterior tibial pulses present ( present with doppler), dorsalis pedis pulses present (present with doppler), brachial pulses present and radial pulses present; no femoral bruit Extremities: + varicosities and + AV fistula; + abnormal capillary refill (5 sec ) and no pedal edema Chest (Breasts): Chest: normal inspection of chest Gastrointestinal (Abdomen): normal bowel sounds, soft, nontender, no hepatosplenomegaly Inspection/Auscultation: abdomen normal to inspection and normal bowel sounds; abdomen not distended Percussion/Palpation: abdomen soft ; abdomen nontender, no guarding and abdomen not rigid Musculoskeletal: no cyanosis or clubbing, extremities motor strength 5/5 Head/Neck/Chest: normocephalic, head atraumatic and neck supple; no chest tenderness Extremities: extremities normal to inspection, strength 5/5 throughout, + amputation noted and + foot abnormality (L foot distally with edema, erythema, shiny skin, exquisite tenderness to any palpation) Left; full ROM of extremities Skin: + wound (surgical wounds healing well.) and + erythema; no rashes, no induration and no eschar Neurologic: moves all extremities and awake; no focal motor deficits and not confused Speech / Cognition: no expressive aphasia and no receptive aphasia Motor/Sensory: + sensory deficit (extreme sensitivity L foot); no tremor Cranial Nerves: EOM intact bilaterally and normal facial strength Psychiatric: Orientation: alert, oriented x 3, oriented to person, oriented to place, oriented to time and cooperative Apperance: appropriately dressed, appropriately groomed and + disheveled Affect: + depressed affect and + irritable affect Thought Process: goal directed thought process, linear/ logical thought process and clear/coherent thought process Cognition: recent memory grossly intact, remote memory grossly intact, attention grossly intact and language grossly intact Estimated Intelligence: average estimated intelligence Lymphatic: no lymphedema
--- NOTE | 2018-09-06 15:15 | Hospitalist Progress Note ---
Date of Service September 06, 2018 Assessment & Plan (1) Acute foot pain: (2) PAD (peripheral artery disease): Present on admission with severe L foot Arterial doppler showed of LLE showed limited sonographic visualization of the distal left popliteal artery though this is presumably patent given the patent lower leg vessels. This relate to postsurgical change. Patent left femoral- popliteal bypass graft. Patent lower leg vessels and normal ankle-brachial indices. vascular on board recommended no surgical intervention. Recommended pain management eval ID on board, no sign of infection noted Follow up blood cx and if cx remain negative will d/c abx in am Continue pain control with dilaudid and oxycodone Will start gabapentin for the pain Will resume coumadin Continue monitor closely (3) Acute renal failure (ARF): In Er Cr: 3.2. Was 3.5 on 09/02/18 and 1.4 on 08/30/18. Hx contrast dye induced nephropathy in fall 2017. hx CKD III Nephrology on board Continue holding sacubitril/valsartan and torsemide Continue IVF (4) Supratherapeutic INR: INR dropped to 3.1 No active bleeding Resume coumadin today (5) DM type 2 (diabetes mellitus, type 2): A1c: 5.7 on 05/2018 Low BS in the 40 todaytoday Recently her levemir was decreased to 18 units HS Received 20 units insulin last night and 40 units this morning Will hold insulin for tonight Continue monitor BS closely (6) Anemia: Hgb 8.9 Stable (7) CAD (coronary artery disease): s/p CABG x 3 in 2005. 05/2018 cardiac cath with patent grafts continue carvedilol, ASA, statin Stable (8) Chronic systolic heart failure: h/o ischemic cardiomyopathy. EF: 20-25% on echo 05/2018 No sign of overload Continue holding torsemide with DARÍO Monitor clossely (9) HTN (hypertension): continue carvedilol, entresto (10) Hypothyroidism: Continue levothyroxine Stable (11) COPD (chronic obstructive pulmonary disease): continue albuterol neb prn continue oxygen 2L NC HS (12) Tobacco use: Counseling on smoking cessation On nicotine patch DVT Prophylaxis INR 3.1, resume coumadin CODE STATUS Full Code Subjective Pt was seen and examined Lying in bed with no distress Pt said that she is having a lot of pain in her left foot She said that her pain is so intense just by touching her left foot She said that she cannot even stand on her left feet Pt had a low BS today . She said that her insulin was decreased to 18 units daily by her PCP She was given 40 units last night and 40 units this morning Denies any chest pain, palpitation, dizziness and SOB Physical Exam 2 Vital Signs (Past 24 Hours): Last Vital Signs Temp 36.3 C L 09/06/18 14:54 Pulse 63 09/06/18 14:54 Resp 18 09/06/18 14:54 BP 137/52 L 09/06/18 14:54 Pulse Ox 98 09/06/18 14:54 Physical Exam: General- No acute distress Head- atraumatic Eyes- PERRL, EOMI, ENT- oropharynx clear Neck- supple, no JVD Lungs- clear to auscultation Heart- regular rhythm; +systolic murmur Abdomen- normal bowel sounds, soft, nontender Extremities- no calf tenderness, LLE: +healed surgical scars, + pain with light touch entire L foot, brisk capillary refill Neuro- alert, oriented x 3; PERRL, EOMI; no facial palsy Skin- warm & dry _ (1) Acute foot pain Laterality: left Qualified Code(s): M79.672 - Pain in left foot (2) Acute renal failure (ARF) Acute renal failure type: unspecified Qualified Code(s): N17.9 - Acute kidney failure, unspecified
[2018-09-06] MEDS ORDERED: ONDANSETRON INJ 2 MG/ML 2 ML VIAL IV STA (15:28)
[2018-09-06] MEDS: WARFARIN SOD 3 MG TAB PO SCH (19:23)
[2018-09-06] MEDS: cefTRIAXone SODIUM 1,000 MG in DEXTROSE 5% 50 ML IV SCH (20:14)
[2018-09-06] MEDS: GABAPENTIN 100 MG CAP PO SCH (20:15)
[2018-09-07] MEDS: LINZESS: ORDER AWAITING ACTION SCH ×3 (01:31→16:46)
[2018-09-07] MEDS: LEVOTHYROXINE SODIUM 175 MCG TABLET PO SCH (05:42)
[2018-09-07] MEDS: HYDROmorphone INJ 1 MG/ML SYRINGE IV PRN ×4 (05:42→19:37)
[2018-09-07 05:45] LABS: Hematocrit (blood only) 26.3 % (37-47); Hemoglobin 8.4 g/dL (12.0-16.0); Mean Corpuscular Hgb Conc 31.9 g/dL (32-36); Mean Corpuscular Volume 89.8 fL (80-100); Mean Platelet Volume 9.2 fL (7.4-10.4); Platelet Count 267 K/uL (130-400); RDW Coefficient of Variation 15.1 % (11.5-14.5); RDW Standard Deviation 49.5 fL (36.4-46.3); Red Blood Count 2.93 M/uL (4.2-5.4); White Blood Count 8.75 K/uL (4.8-10.8)
[2018-09-07 06:37] LABS: Calcium 8.5 mg/dl (8.5-10.1); Creatinine Clr Calc Pharmacy 24.9 ml/min; Est GFR (African American) 22.7; Est GFR (Non-African American) 19.6; Potassium 3.5 mmol/L (3.5-5.1)
[2018-09-07] MEDS: CARBOHYDRATES FOR HYPOGLYCEMIA PO PRN ×4 (06:42→15:27)
--- NOTE | 2018-09-07 07:20 | Nephrology Progress Note ---
Date of Service September 07, 2018 Assessment & Plan (1) Acute on chronic renal failure: Her creatinine was 1.4 on 08/30, 3.6 on 09/02, 3.2 on 09/05 when she was admitted for L foot pain, now trending down to 2.5 today chemistries acceptable UA suggestive of ATN; could consider atheroembolic phenomena, vasculitis but these are far less likely than ATN c/b chronic systolic HF w/ EF 20% -agree w/ holding sacubitril/valsartan for today but would resume diuretic > takes torsemide 20 mg daily as OP; so would start with lasix IV 20 mg bid 17 and have ordered -needs to est w/ renal in [place] after d/c -cont renally dosed diuretics; dapto is low volume (syringe); ceftriaxone in D5W 60 mL -cont 1.5L FR and <2 gm Na diet and daily STANDING wts - this am was bedwt -daily bmp; today's chemistries acceptable -ordered complement for completeness (ref lab) Subjective seen on rounds this am 0730; c/o severe foot pain; emesis x 2 yesterday; no worsening dyspnea; no voidin gc/o; no edema Physical Exam 2 Vital Signs (Past 24 Hours): Last Vital Signs Temp 36.8 C 09/07/18 07:10 Pulse 66 09/07/18 07:10 Resp 16 09/07/18 07:10 BP 127/60 09/07/18 07:10 Pulse Ox 98 09/07/18 07:10 Constitutional: well developed, well nourished and + obese on 02NC A&0 x 3 Eyes: EOM intact bilaterally ENMT: Ears: no external ear abnormality Nose: no external nose abnormality Mouth: + dry oral mucous membranes Neck: no nuchal rigidity Respiratory: normal respiratory effort Auscultation: + diminished lung sounds and + crackles (bibasilar) Cardiovascular: RRR, no murmur, no edema (distant HS) Extremities: + edema (trace BLE) Gastrointestinal (Abdomen): Inspection/Auscultation: normal bowel sounds Percussion/Palpation: abdomen soft; abdomen nontender Musculoskeletal: Extremities: strength 5/5 throughout Skin: no rashes, warm and dry large healing surgical wounds RLE Neurologic: awake Speech / Cognition: normal cognition Motor/Sensory: normal movement Psychiatric: Orientation: alert and oriented x 3 Eye Contact: + fair eye contact Speech: normal rate/rhythm/volume of speech Thought Process: + circumstantial thought process Genitourinary: no oconnor Results & Data Laboratory Results Abnormal lab results 09/06/18 09/06/18 09/06/18 Range/Units 06:29 06:29 11:37 RBC (4.2-5.4) M/uL Hgb (12.0-16.0) g/dL Hct (37-47) % MCHC (32-36) g/dL RDW Std Deviation (36.4-46.3) fL RDW Coeff of Chris (11.5-14.5) % PT 29.0 H (9.0-12.0) Seconds INR 3.1 H (0.9-1.1) Carbon Dioxide (21-32) mmol/L BUN 42 H (7-18) mg/dl Creatinine 2.95 H (0.6-1.2) mg/dl Glucose (70-99) mg/dl POC Glucose 43 L* (70-99) Phosphorus 5.2 H (2.5-4.9) mg/dl Alkaline Phosphatase 200 H (45-117) U/L Albumin 2.6 L (3.4-5.0) gm/dl Globulin 4.1 H (2.5-4.0) gm/dl Albumin/Globulin Ratio 0.6 L (0.9-2) 09/06/18 09/06/18 09/06/18 Range/Units 11:38 11:59 12:00 RBC (4.2-5.4) M/uL Hgb (12.0-16.0) g/dL Hct (37-47) % MCHC (32-36) g/dL RDW Std Deviation (36.4-46.3) fL RDW Coeff of Chris (11.5-14.5) % PT (9.0-12.0) Seconds INR (0.9-1.1) Carbon Dioxide (21-32) mmol/L BUN (7-18) mg/dl Creatinine (0.6-1.2) mg/dl Glucose (70-99) mg/dl POC Glucose 42 L* 43 L* 54 L* (70-99) Phosphorus (2.5-4.9) mg/dl Alkaline Phosphatase (45-117) U/L Albumin (3.4-5.0) gm/dl Globulin (2.5-4.0) gm/dl Albumin/Globulin Ratio (0.9-2) 09/06/18 09/06/18 09/07/18 Range/Units 16:24 20:24 05:33 RBC (4.2-5.4) M/uL Hgb (12.0-16.0) g/dL Hct (37-47) % MCHC (32-36) g/dL RDW Std Deviation (36.4-46.3) fL RDW Coeff of Chris (11.5-14.5) % PT (9.0-12.0) Seconds INR (0.9-1.1) Carbon Dioxide 33 H (21-32) mmol/L BUN 38 H (7-18) mg/dl Creatinine 2.51 H D (0.6-1.2) mg/dl Glucose 53 L* (70-99) mg/dl POC Glucose 122 H 140 H (70-99) Phosphorus (2.5-4.9) mg/dl Alkaline Phosphatase (45-117) U/L Albumin (3.4-5.0) gm/dl Globulin (2.5-4.0) gm/dl Albumin/Globulin Ratio (0.9-2) 09/07/18 09/07/18 Range/Units 05:33 06:39 RBC 2.93 L (4.2-5.4) M/uL Hgb 8.4 L (12.0-16.0) g/dL Hct 26.3 L (37-47) % MCHC 31.9 L (32-36) g/dL RDW Std Deviation 49.5 H (36.4-46.3) fL RDW Coeff of Chris 15.1 H (11.5-14.5) % PT (9.0-12.0) Seconds INR (0.9-1.1) Carbon Dioxide (21-32) mmol/L BUN (7-18) mg/dl Creatinine (0.6-1.2) mg/dl Glucose (70-99) mg/dl POC Glucose 69 L* (70-99) Phosphorus (2.5-4.9) mg/dl Alkaline Phosphatase (45-117) U/L Albumin (3.4-5.0) gm/dl Globulin (2.5-4.0) gm/dl Albumin/Globulin Ratio (0.9-2) _ (1) Acute on chronic renal failure Acute renal failure type: with acute tubular necrosis Chronic kidney disease stage: stage 3 (moderate) Qualified Code(s): N17.0 - Acute kidney failure with tubular necrosis; N18.3 - Chronic kidney disease, stage 3 (moderate)
[2018-09-07 08:08] LABS: INR 1.9 (0.9-1.1); Prothrombin Time 18.7 Seconds (9.0-12.0)
[2018-09-07] MEDS: ASPIRIN 81 MG ECTAB PO SCH (08:27)
[2018-09-07] MEDS: FUROSEMIDE 20 MG in SYRINGE 0 ML IV SCH ×2 (08:27→16:46)
[2018-09-07] MEDS: OXYCODONE HCL IR 5 MG TAB (IMMEDIATE RELEASE) PO PRN ×3 (08:27→22:24)
[2018-09-07] MEDS: ONDANSETRON INJ 2 MG/ML 2 ML VIAL IV PRN (08:27)
[2018-09-07] MEDS: CLOPIDOGREL BISULFATE 75 MG TAB PO SCH (08:28)
[2018-09-07] MEDS: ATORVASTATIN 40 MG TAB PO SCH (08:28)
[2018-09-07] MEDS: CHOLECALCIFEROL 1,000 UNITS TAB PO SCH (08:28)
[2018-09-07] MEDS: PANTOprazole 40 MG TAB PO SCH (08:28)
[2018-09-07] MEDS: DOCUSATE SODIUM 100 MG CAP PO SCH ×2 (08:28→19:53)
[2018-09-07] MEDS: NICOTINE 21 MG/24 HR TDSY TD SCH (08:28)
[2018-09-07] MEDS: GABAPENTIN 100 MG CAP PO SCH (08:28)
[2018-09-07] MEDS: CARVEDILOL 25 MG TAB PO SCH ×2 (08:28→19:53)
[2018-09-07] MEDS: INSULIN ASPART 100 UNITS/ML 3 ML PEN SC SCH ×3 (08:32→21:55)
--- NOTE | 2018-09-07 08:40 | Pain Management Consultation ---
Date of Consultation September 07, 2018 Assessment & Plan (1) Acute foot pain: 1. Due to her current renal function recommended gabapentin dosing is between 2-700 mg once daily only. Will adjust her current dosing from 100 mg twice daily to 300 mg nightly. 2. She was encouraged to utilize oxycodone more consistently for breakthrough pain to assess efficacy. 3. Consider addition of Cymbalta 30 mg daily with eventual titration 4. Consider neurology consultation to rule out nerve compression as potential etiology as her presenting complaint given her history of multiple prior surgical procedures of the left lower extremity as the patient's pain appears to be neuropathic in nature given normal lower extremity arterial Doppler. 5. Patient may continue utilizing hydromorphone for as needed breakthrough pain not well controlled with oxycodone Laterality: left Qualified Code(s): M79.672 - Pain in left foot Present on Admission?: Yes (2) S/P femoral-popliteal bypass surgery: Present on Admission?: Yes (3) Acute on chronic renal failure: Acute renal failure type: with acute tubular necrosis Chronic kidney disease stage: stage 3 (moderate) Qualified Code(s): N17.0 - Acute kidney failure with tubular necrosis; N18.3 - Chronic kidney disease, stage 3 ( moderate) Present on Admission?: Yes (4) Tobacco use: Present on Admission?: Yes (5) DM type 2 (diabetes mellitus, type 2): Present on Admission?: Yes (6) Peripheral artery disease: Present on Admission?: Yes History of Present Illness Reason for Consultation: Left foot pain Attending Physician: Helga Estrada MD History of Present Illness Mrs. Hannah is a 63-year-old white female who was admitted due to complaints of severe pain in the left foot. 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 Patient was discharged to home on 09/01/2018 and returned with left foot pain and underwent emergent evaluation on 09/02/2018 with arterial Doppler revealing a patent left femoral-popliteal graft and the patient signed out AMA. She is unable to report exact time of onset of her current symptomatic pain complaint. Patient return to ER if yesterday due to the left lower extremity pain which she describes as episodic, sharp, burning and stabbing in characteristic involving the plantar surface of the foot and can travel to the ankle region. She reports an inability to wear socks on the foot due to discomfort. She reports significant discomfort with any ambulatory activity. She denies any low back or lumbar radicular component to her symptoms. She denies any similar related pain on the right lower extremity. She is unable to report efficacy of oxycodone or hydromorphone upon questioning. Patient indicates that she is tolerating her current medication without notable side effects. Patient denies any fevers, chills or night sweats. Patient has no further constitutional complaints at this time. Plan of care discussed with Dr. Kerri Santos. Pain Assessment Full Body Front + Back: 2 1. Left ankle and foot-nondermatomal Pain scale - at its best (0-10): 5 Pain scale - at its worst (0-10): 10 Allergies Allergy/AdvReac Type Severity Reaction Status Date / Time amlodipine Allergy Intermediate Unknown Verified 09/05/18 12:37 Penicillins Allergy Unknown BUMPY RASH Verified 09/05/18 12:37 lisinopril AdvReac Intermediate Cough Verified 09/05/18 12:37 Home Medications Home Medications Medication Instructions Recorded Confirmed Type atorvastatin [Lipitor] 80 mg PO QAM 05/15/18 09/05/18 History clopidogrel [Plavix] 75 mg PO QAM 05/15/18 09/05/18 History levothyroxine 175 mcg PO QAM 05/16/18 09/05/18 History linaclotide 1 tab PO QAM 05/16/18 09/05/18 History metformin 1,000 mg PO BID 05/16/18 09/05/18 History pantoprazole 40 mg PO QAM 05/16/18 09/05/18 History docusate sodium 100 mg capsule 100 mg PO BID 05/29/18 09/05/18 History insulin aspart U-100 100 unit/mL 12 - 22 units SQ TID ml 05/29/18 09/05/18 History subcutaneous pen ipratropium 20 mcg-albuterol 100 1 puffs INH QID PRN 05/29/18 09/05/18 History mcg/actuation mist for inhalation aspirin [Ecotrin Low Strength] 81 mg PO QAM 06/07/18 09/05/18 History warfarin [Coumadin] 5 mg PO DAILY #30 tab 09/01/18 09/05/18 Rx albuterol sulfate [Ventolin HFA] 2 puff INHALATION Q4 PRN 09/02/18 09/05/18 History carvedilol [Coreg] 25 mg PO BID 09/02/18 09/05/18 History cholecalciferol (vitamin D3) 2,000 unit PO DAILY 09/02/18 09/05/18 History [D3-2000] glipizide [Glucotrol] 5 mg PO UD 09/02/18 09/05/18 History insulin detemir U-100 [Levemir 18 units SUBCUT HS 09/02/18 09/06/18 History U-100 Insulin] sacubitril-valsartan [Entresto] 1 tab PO BID 09/02/18 09/05/18 History torsemide 1 tabs PO DAILY 09/02/18 09/05/18 History oxycodone-acetaminophen 1 tab PO Q6H PRN 09/05/18 09/05/18 History Patient History Medical History Tobacco use (Chronic) COPD (chronic obstructive pulmonary disease) (Chronic) Chronic systolic heart failure (Chronic) Anemia (Chronic) CHRONIC- BASELINE HGB RANGE 8'S PER CHART REVIEW HLD (hyperlipidemia) (Chronic) Obesity (Chronic) CAD (coronary artery disease) (Chronic) S/P CABG X3 (2005) PAD (peripheral artery disease) (Chronic) S/P MULTIPLE ENDOVASCULAR INTERVENTIONS HTN (hypertension) (Chronic) Aortic stenosis (Chronic) "MODERATE" PER 2017 ECHO (LUIS MANUEL 0.97 CM2, MG 18.0 MMHG) CKD (chronic kidney disease) (Chronic) DARÍO 05/2018 IMPROVED S/P HYDRATION; HISTORY CKD Surgical History S/P CABG x 3 (Chronic) 2005 S/P femoral-popliteal bypass surgery (Chronic) H/O section H/O fasciotomy S/P insertion of iliac artery stent Thrombosis of left femoral-femoral bypass graft Family History Other CAD (coronary artery disease) COPD (chronic obstructive pulmonary disease) Diabetes Social History Current Living Situation: Family Current Living Situation Comment: lives with daughter Other Information That Helps Us Care for You: No Feels Safe at Home: Yes Safety Concerns: Feels Safe At This Time Smoking Status: Current every day smoker Tobacco Type: cigarettes Cigarettes per Day: </= 20 Do You Dip or Chew Tobacco: No Tobacco Cessation Education Requested by Patient: No Hx Alcohol Use: No Hx Substance Use: No Beliefs That Will Affect Care: None Communication Ability: Effective Review of Systems Constitutional: Negative for fever, chills, sweats Eyes: Negative for eye pain, photophobia, drainage Ear, nose, mouth, throat: Negative for ear pain, nasal congestion, mouth lesions , change in voice Respiratory: Negative for wheezing, sputum production Cardiovascular: Negative for chest pain, palpitations, calf pain Gastrointestinal: Negative for abdominal pain, belching, bloating Genitourinary: Negative for dysuria, urinary incontinence, urinary urgency Musculoskeletal: Negative for deformities Integumentary: Negative for nail changes, skin yellowing, pruritus Neurological: Negative for abnormal speech, seizure type activity Physical Exam 2 Vital Signs (Past 24 Hours): Last Vital Signs Temp 36.8 C 09/07/18 07:10 Pulse 64 09/07/18 07:38 Resp 16 09/07/18 07:10 BP 127/60 09/07/18 07:10 Pulse Ox 98 09/07/18 07:10 Physical Exam: General: Patient sitting quietly in exam room in no acute distress. Patient is episodically reporting sharp pain in the left foot throughout the visit. She appears to be moderately anxious. Patient is a poor historian. Head: Normocephalic and atraumatic. ENT: Poor dentition appreciated. Neck: Full range of motion without limitation. Chest: Nontender to palpation the costosternal junction. Abdomen: Soft and nondistended. No organomegaly. Back/spine: Slight loss of lordosis. Nontender over the midline, facet joints or SI joints. Lower extremities: SLR negative bilaterally. Multiple well-healed surgical scars in the left lower extremity without evidence of edema, erythema or skin breakdown. Left foot with slightly erythematous discoloration involving the toes and foot to the level of the ankle. Warm to touch. Patient has evidence of allodynia and slight hyperpathia response over the foot in a nondermatomal pattern. She is diminished sensation to light touch distally. Capillary refill is 1-2 seconds. Homans sign negative. There is no skin breakdown appreciated. Neurologic: Cranial nerves grossly intact. Ambulation not witnessed. Results & Data [phone] Report Patient: ANDREW HANNAH Date: 09/05/18 MR#: [id number]: [address] Acct ID:[id number]: [facility] Zip: [place] [id number] Age: 63Location: ED Sex: F Room/Bed: Att Phy: Diagnosis: CAN'T WALK Nayeli Phy: Derian Lutz DO (ARNOT)Service Date: 09/05/18 Fam Phy: Interpreting Phy: Choco Velasco MD Admit Phy: Ordering Phy: Shyla Bella PA-C cc: ~ US arterial duplex LE LT CLINICAL HISTORY: 63 years-old Female presenting with LLE pain s/p fem-pop bypass and occlusion, status post graft revision on 08/31/2018. TECHNIQUE: Real-time grayscale and color and spectral Doppler ultrasound imaging of the left lower extremity arteries was performed. Measurements calculated based on NASCET criteria. COMPARISON: 09/02/2018. FINDINGS: LEFT: Graft: The arterial takeoff of the graft at the level of the common femoral artery is patent. Peak systolic velocity (PSV) proximal to the takeoff 120 cm/s and PSV in the proximal graft 90 cm/s, consistent with no stenosis. More distally PSV 42-53 cm/s in the midportion of the graft and 38 cm/s distally. The graft inserts onto the left popliteal artery. PSV distal to the anastomosis 47 cm/s. Monophasic waveforms are evident throughout the graft without evidence of tardus et parvus morphology. Common femoral artery: Patent. Monophasic waveforms. PSV 304 cm/s. Deep femoral artery: Not interrogated. Superficial femoral artery: Not interrogated. Popliteal artery: Patent though there is shadowing of the distal popliteal artery. Monophasic waveforms. PSV 28-109 cm/s. Posterior tibial artery: Patent. Monophasic waveforms. PSV 42 cm/s. Peroneal artery: Patent. Monophasic waveforms. PSV 39 cm/s. Anterior tibial artery: Patent. Monophasic waveforms. PSV 26 cm/s. Dorsalis pedis: Patent. Monophasic waveforms. PSV 22 cm/s. ANKLE/BRACHIAL INDEX (ABEL): Brachial: Right: mmHg. Left: mmHg. Ankle (posterior tibial): Right: mmHg. Left: mmHg. Ankle (dorsalis pedis): Right: mmHg. Left: mmHg. Ankle/brachial index: Right: , Left: . Reference ranges: Normal Ankle/Brachial Index (ABEL) 1.0-1.4; 0.91-0.99 borderline; < or = 0.9 abnormal (0.7-0.89 mild, 0.51-0.69 moderate, < or = 0.5 severe peripheral arterial disease). Normal Toe/Brachial Index (TBI) > or = 0.6; < 0.6 abnormal (0.34-0.59 mild, 0.12 -0.34 moderate, < or = 0.11 severe peripheral arterial disease). IMPRESSION: 1. Limited sonographic visualization of the distal left popliteal artery though this is presumably patent given the patent lower leg vessels. This relate to postsurgical change. 2. Patent left femoral-popliteal bypass graft. 3. Patent lower leg vessels. 4. Normal ankle-brachial indices. Electronically signed by: Choco Velasco M.D. 09/05/2018 2:11 PM Dictated: 09/05/18 1404 Transcribed: 09/05/18 1404
--- NOTE | 2018-09-07 10:00 | Infectious Disease Progress Nt ---
Date of Service September 07, 2018 Assessment & Plan (1) Peripheral artery disease: no signs of infection noted.blood culture pending, blood cultures remain negative. She can be followed antibiotics from an Infectious Diseases standpoint. She is afebrile with a normal white blood cell count and hemodynamically stable. suspect pain not related to infectious etiology. Will be available for questions if needed. No further ID recommendations at this time. Subjective Patient remains afebrile. White blood cell count is normal this morning. She remains on empiric antibiotics. She has been seen by vascular surgery as well as pain management. She is undergoing additional treatment for management of her foot pain. Her blood cultures are negative to date. Physical Exam 2 Vital Signs (Past 24 Hours): Last Vital Signs Temp 36.8 C 09/07/18 07:10 Pulse 64 09/07/18 07:38 Resp 16 09/07/18 07:10 BP 127/60 09/07/18 07:10 Pulse Ox 98 09/07/18 07:10 Results & Data Laboratory Results Microbiology 09/05/18 11:25 Urine,Clean Catch Urine Culture - Final More than three types of organisms present, all high counts mixed probable skin kiya - No further identifications or sensitivities to follow. 09/05/18 17:52 Blood Blood Culture - Preliminary No growth to date. 09/05/18 17:59 Blood Blood Culture - Preliminary No growth to date.
--- NOTE | 2018-09-07 12:28 | Surgery Progress Note ---
Date of Service September 07, 2018 Assessment & Plan (1) Peripheral artery disease: She still complains of pain in her right foot which is unchanged from yesterday. (2) Acute foot pain: Pain service help appreciated. This does not appear to be compression of the nerve from a compartment syndrome the other compartments are released previously at her last surgery. Physical Exam 2 Vital Signs (Past 24 Hours): Last Vital Signs Temp 36.9 C 09/07/18 11:43 Pulse 67 09/07/18 11:43 Resp 18 09/07/18 11:43 BP 146/63 H 09/07/18 11:43 Pulse Ox 97 09/07/18 11:43 Cardiovascular: Vessels: femoral pulses present, posterior tibial pulses present (present with doppler) and dorsalis pedis pulses present (present with doppler) Extremities: + abnormal capillary refill (5 sec ) and no pedal edema Gastrointestinal (Abdomen): Inspection/Auscultation: abdomen normal to inspection and normal bowel sounds; abdomen not distended Percussion/ Palpation: no guarding Musculoskeletal: Extremities: + foot abnormality (L foot distally with edema, erythema, shiny skin, exquisite tenderness to any palpation) Neurologic: Motor/Sensory: + sensory deficit (extreme sensitivity L foot) Psychiatric: Orientation: alert and oriented x 3 _ (1) Acute foot pain Laterality: left Qualified Code(s): M79.672 - Pain in left foot
[2018-09-07] MEDS ORDERED: PHARMACY GLYCEMIC MGMT CONSULT PRN (16:30)
[2018-09-07] MEDS: WARFARIN SOD 3 MG TAB PO SCH (16:47)
--- NOTE | 2018-09-07 19:22 | Hospitalist Progress Note ---
Date of Service September 07, 2018 Assessment & Plan (1) Acute foot pain: (2) PAD (peripheral artery disease): Present on admission with severe L foot Arterial doppler showed of LLE showed limited sonographic visualization of the distal left popliteal artery though this is presumably patent given the patent lower leg vessels. This relate to postsurgical change. Patent left femoral- popliteal bypass graft. Patent lower leg vessels and normal ankle-brachial indices. vascular on board recommended no surgical intervention. Recommended pain management eval ID on board, no sign of infection noted Blood cx no growth, abx discontinued Continue pain control with dilaudid and oxycodone Gabapentin increased to 300mg HS Continue coumadin, INR 1.9 today Continue monitor closely (3) Acute renal failure (ARF): In Er Cr: 3.2. Was 3.5 on 09/02/18 and 1.4 on 08/30/18. Hx contrast dye induced nephropathy in fall 2017. hx CKD III Creatinine 2.5 today Nephrology on board Continue holding sacubitril/valsartan and torsemide Continue IVF (4) Supratherapeutic INR: INR dropped to 1.9 No active bleeding Continue coumadin 3mg daily (5) DM type 2 (diabetes mellitus, type 2): Hypoglycemia episodes A1c: 5.7 on 05/2018 Recently her levemir was decreased to 18 units HS Will hold insulin for [facility] Pharmacy consult for glycemic management Continue monitor BS closely (6) Anemia: Hgb 8.4 Check CBC in am Stable (7) CAD (coronary artery disease): s/p CABG x 3 in 2005. 05/2018 cardiac cath with patent grafts continue carvedilol, ASA, statin Stable (8) Chronic systolic heart failure: h/o ischemic cardiomyopathy. EF: 20-25% on echo 05/2018 No sign of overload Continue holding torsemide with DARÍO Monitor clossely (9) HTN (hypertension): continue carvedilol, entresto (10) Hypothyroidism: Continue levothyroxine Stable (11) COPD (chronic obstructive pulmonary disease): continue albuterol neb prn continue oxygen 2L NC HS (12) Tobacco use: Counseling on smoking cessation On nicotine patch DVT Prophylaxis INR 1.9, Continue coumadin CODE STATUS Full Code Subjective Pt was seen and examined Lying in bed sleeping comfortable I walked to the bed and pushing on her left foot for about 20 sec Once awake and saw me touching her left foot, she started to scream She said that the only time she did not have any pain in her left foot was when she was hypoglycemia Denies any chest pain, palpitation and SOB Physical Exam 2 Vital Signs (Past 24 Hours): Last Vital Signs Temp 36.9 C 09/07/18 15:50 Pulse 63 09/07/18 15:50 Resp 18 09/07/18 15:50 BP 127/63 09/07/18 15:50 Pulse Ox 94 09/07/18 15:50 Physical Exam: General- No acute distress Head- atraumatic Eyes- PERRL, EOMI, ENT- oropharynx clear Neck- supple, no JVD Lungs- clear to auscultation Heart- regular rhythm; +systolic murmur Abdomen- normal bowel sounds, soft, nontender Extremities- no calf tenderness, LLE: +healed surgical scars, + pain with light touch entire L foot, brisk capillary refill Neuro- alert, oriented x 3; PERRL, EOMI; no facial palsy Skin- warm & dry _ (1) Acute foot pain Laterality: left Qualified Code(s): M79.672 - Pain in left foot (2) Acute renal failure (ARF) Acute renal failure type: unspecified Qualified Code(s): N17.9 - Acute kidney failure, unspecified
[2018-09-07] MEDS: GABAPENTIN 300 MG CAP PO SCH (19:53)
[2018-09-07] MEDS ORDERED: INSULIN DETEMIR FLEXPEN/FLEX TOUCH 100 UNITS/ML 3ML SC ONE (23:15)
[2018-09-08] MEDS ORDERED: INSULIN ASPART 100 UNITS/ML 3 ML PEN SC SCH (02:00)
[2018-09-08] MEDS: LINZESS: ORDER AWAITING ACTION SCH ×4 (05:34→23:56)
[2018-09-08 06:33] LABS: Hematocrit (blood only) 23.5 % (37-47); Hemoglobin 7.4 g/dL (12.0-16.0); Mean Corpuscular Hgb Conc 31.5 g/dL (32-36); Mean Corpuscular Volume 90.4 fL (80-100); Mean Platelet Volume 9.3 fL (7.4-10.4); Platelet Count 264 K/uL (130-400); RDW Coefficient of Variation 15.1 % (11.5-14.5); White Blood Count 7.82 K/uL (4.8-10.8)
[2018-09-08] MEDS: LEVOTHYROXINE SODIUM 175 MCG TABLET PO SCH (06:37)
[2018-09-08 07:14] LABS: BUN Creatinine Ratio 15.7 (10-20); Calcium 8.3 mg/dl (8.5-10.1); Creatinine Clr Calc Pharmacy 29.4 ml/min; Est GFR (African American) 27.6; Est GFR (Non-African American) 23.8; INR 1.6 (0.9-1.1); Potassium 3.9 mmol/L (3.5-5.1); Prothrombin Time 16.1 Seconds (9.0-12.0)
[2018-09-08] MEDS: CHOLECALCIFEROL 1,000 UNITS TAB PO SCH (07:58)
[2018-09-08] MEDS: CLOPIDOGREL BISULFATE 75 MG TAB PO SCH (07:58)
[2018-09-08] MEDS: ATORVASTATIN 40 MG TAB PO SCH (07:58)
[2018-09-08] MEDS: ASPIRIN 81 MG ECTAB PO SCH (07:59)
[2018-09-08] MEDS: PANTOprazole 40 MG TAB PO SCH (07:59)
[2018-09-08] MEDS: CARVEDILOL 25 MG TAB PO SCH ×2 (07:59→20:19)
[2018-09-08] MEDS: NICOTINE 21 MG/24 HR TDSY TD SCH (08:00)
[2018-09-08] MEDS: FUROSEMIDE 20 MG in SYRINGE 0 ML IV SCH ×2 (08:00→16:13)
[2018-09-08] MEDS: DOCUSATE SODIUM 100 MG CAP PO SCH ×2 (08:00→20:19)
[2018-09-08] MEDS: INSULIN DETEMIR FLEXPEN/FLEX TOUCH 100 UNITS/ML 3ML SC SCH ×2 (08:01→21:06)
[2018-09-08] MEDS: INSULIN ASPART 100 UNITS/ML 3 ML PEN SC SCH ×5 (08:02→20:19)
--- NOTE | 2018-09-08 09:57 | Pharmacy Report ---
Pharmacy Glycemic Short Note 2 - Date of Service September 08, 2018 - Glycemic Short BSG Results (Last 24 hours): 09/07/18 09/07/18 09/07/18 11:31 14:42 14:43 Glucose POC Glucose 188 H 45 L* 53 L* 09/07/18 09/07/18 09/07/18 15:04 15:24 15:44 Glucose POC Glucose 66 L* 69 L* 103 H 09/07/18 09/08/18 09/08/18 20:40 02:02 06:17 Glucose 245 H POC Glucose 319 H 323 H 09/08/18 07:33 Glucose POC Glucose 261 H OUTPATIENT ANTIDIABETIC REGIMEN: * Glipizide - dose uncertain * Metformin 1gm PO BID * Levemir 18units Q HS * Novolog 20-25 units with meals (does not count carbs) * A1c = 5.7% 05/2018 ASSESSMENT: 09/08/18 * Type 2 diabetic admitted painful left leg/foot concern for PAD. Pt is being managed non-surgically and pain management is now the goal. * Patient's BSGs had been running low, likely due to excess basal and prandial insulin the prior day. * Now, however BSGs are running high due to a basal insulin deficiency as basal had been held > 24 hrs prior to resuming last night. * Will adjust both basal/bolus doses based upon an anticipated requirement of ~ 50-55 units/day while tolerating a diet. * Additional BSG checks overnight may be warranted initially to screen for basal deficiency PLAN FOR INPATIENT GLYCEMIC CONTROL: * Hold outpatient oral diabetes medications (glipizide, metformin) * Basal insulin * Lantus 10 units SQ BID * Bolus insulin * NovoLog per scale ACHS or Q6hrs while NPO * Goal Range: Low 120 mg/dL - High 160 mg/dL * Correction Factor: 25 mg/dL/unit * Nutritional / Prandial insulin per carb ratio of 1 unit per 9 grams CHO consumed PLAN FOR DISCHARGE: * A1c was at goal. If no episodes of hypoglycemia were experienced with current outpt regimen would recommend resuming all agents IF renal function recovers. If renal dysfunction continues at time of discharge a basal bolus regimen may be necessary as metformin and potentially glipizide may need to be held.
--- NOTE | 2018-09-08 11:09 | Surgery Progress Note ---
Date of Service September 08, 2018 Assessment & Plan (1) Peripheral artery disease: Pt's BPG and distal arteries appear patent. No indications for vascular intervention at this time. (2) Acute foot pain: Pt with severe pain in LLE, possibly d/t ischemic neuropathy, having required multiple revascularizations d/t acute arterial occlusions in past. Pain level improving somewhat. Subjective 63 yo f with multiple medical problems, seen in f/u today for LLE foot pain s/p revascularization. States pain / presently, improved from admission, however pt is groggy and has not been ambulating on foot yet. Denies any new complaints. Physical Exam 2 Vital Signs (Past 24 Hours): Last Vital Signs Temp 37.1 C 09/08/18 07:55 Pulse 65 09/08/18 08:00 Resp 16 09/08/18 07:55 BP 116/53 L 09/08/18 07:55 Pulse Ox 98 09/08/18 07:55 Constitutional: WD/WN, vitals as above well developed, well nourished, + ill appearing, + obese, + disheveled and cooperative Cardiovascular: Vessels: femoral pulses present, posterior tibial pulses present (present with doppler) and dorsalis pedis pulses present (present with doppler) Extremities: + abnormal capillary refill (5 sec ) Musculoskeletal: Extremities: + foot abnormality (L foot distally with edema, erythema, shiny skin, exquisite tenderness to any palpation) Skin: + wound (surgical wounds healing well.) Neurologic: Motor/Sensory: + sensory deficit (extreme sensitivity L foot) _ (1) Acute foot pain Laterality: left Qualified Code(s): M79.672 - Pain in left foot
[2018-09-08] MEDS ORDERED: INSULIN PROTOCOL GOAL RANGE ONE (12:10)
[2018-09-08] MEDS ORDERED: NovoLIN-R BOLUS FROM BAG IV ONE (12:15)
[2018-09-08] MEDS: INSULIN REGULAR 250 UNITS in SODIUM CHLORIDE 0.9% 247.5 ML IV SCH ×2 (12:48→23:53)
[2018-09-08] MEDS: OXYCODONE HCL IR 5 MG TAB (IMMEDIATE RELEASE) PO PRN ×2 (13:30→19:44)
--- NOTE | 2018-09-08 14:11 | Hospitalist Progress Note ---
Date of Service September 08, 2018 Assessment & Plan (1) Acute foot pain: (2) PAD (peripheral artery disease): Present on admission with severe L foot Arterial doppler showed of LLE showed limited sonographic visualization of the distal left popliteal artery though this is presumably patent given the patent lower leg vessels. This relate to postsurgical change. Patent left femoral- popliteal bypass graft. Patent lower leg vessels and normal ankle-brachial indices. vascular on board recommended no surgical intervention. Recommended pain management eval ID on board, no sign of infection noted Blood cx no growth, abx discontinued Continue pain control with dilaudid and oxycodone Gabapentin increased to 300mg HS Continue coumadin, INR 1.6 today Continue monitor closely (3) Acute renal failure (ARF): In Er Cr: 3.2. Was 3.5 on 09/02/18 and 1.4 on 08/30/18. Hx contrast dye induced nephropathy in fall 2017. hx CKD III Creatinine 1.8 today Nephrology on board Continue holding sacubitril/valsartan and torsemide Continue IVF (4) Supratherapeutic INR: INR dropped to 1.6 No active bleeding Continue coumadin 3mg daily (5) DM type 2 (diabetes mellitus, type 2): Hypoglycemia episodes A1c: 5.7 on 05/2018 Recently her levemir was decreased to 18 units HS Will hold insulin for [facility] Pharmacy consult for glycemic management Continue monitor BS closely (6) Anemia: Hgb dropped to 7.4 Repeat H/H at 2 pm Will transfuse if repeat h/h dropped below 7.5 (7) CAD (coronary artery disease): s/p CABG x 3 in 2005. 05/2018 cardiac cath with patent grafts continue carvedilol, ASA, statin Stable (8) Chronic systolic heart failure: h/o ischemic cardiomyopathy. EF: 20-25% on echo 05/2018 No sign of overload Continue holding torsemide with DARÍO Monitor clossely (9) HTN (hypertension): continue carvedilol, entresto (10) Hypothyroidism: Continue levothyroxine Stable (11) COPD (chronic obstructive pulmonary disease): continue albuterol neb prn continue oxygen 2L NC HS (12) Tobacco use: Counseling on smoking cessation On nicotine patch DVT Prophylaxis INR 1.6, Continue coumadin CODE STATUS Full Code Subjective Pt was seen and examined Lying in bed comfortable sleeping Pt has not been trying to stand or work with therapist Physical Exam 2 Vital Signs (Past 24 Hours): Last Vital Signs Temp 37.6 C H 09/08/18 11:35 Pulse 66 09/08/18 11:35 Resp 18 09/08/18 11:35 BP 125/49 L 09/08/18 11:35 Pulse Ox 95 09/08/18 11:35 Physical Exam: General- No acute distress Head- atraumatic Eyes- PERRL, EOMI, ENT- oropharynx clear Neck- supple, no JVD Lungs- clear to auscultation Heart- regular rhythm; +systolic murmur Abdomen- normal bowel sounds, soft, nontender Extremities- no calf tenderness, LLE: +healed surgical scars, + pain with light touch entire L foot Neuro- alert, oriented x 3; PERRL, EOMI; no facial palsy Skin- warm & dry _ (1) Acute foot pain Laterality: left Qualified Code(s): M79.672 - Pain in left foot (2) Acute renal failure (ARF) Acute renal failure type: unspecified Qualified Code(s): N17.9 - Acute kidney failure, unspecified
[2018-09-08 14:23] LABS: Hematocrit (blood only) 24.8 % (37-47)
[2018-09-08] MEDS: HYDROmorphone INJ 1 MG/ML SYRINGE IV PRN ×2 (15:19→22:01)
[2018-09-08] MEDS: WARFARIN SOD 3 MG TAB PO SCH (16:12)
--- NOTE | 2018-09-08 17:35 | Nephrology Progress Note ---
Date of Service September 08, 2018 Assessment & Plan (1) Acute on chronic renal failure: Her creatinine was 1.4 on 08/30, 3.6 on 09/02, 3.2 on 09/05 when she was admitted for L foot pain, now trending down to 2.5 today chemistries acceptable UA suggestive of ATN; could consider atheroembolic phenomena, vasculitis but these are far less likely than ATN c/b chronic systolic HF w/ EF 20% -agree w/ holding sacubitril/valsartan but would resume diuretic > takes torsemide 20 mg daily as OP; so would cont with lasix IV 20 mg bid 17 and have ordered -needs to est w/ renal in [place] after d/c -cont renally dosed diuretics; dapto is low volume (syringe); ceftriaxone in D5W 60 mL -cont 1.5L FR and <2 gm Na diet and daily STANDING wts - this am was again bedwt -daily bmp; today's chemistries acceptable -ordered complement for completeness (ref lab) Subjective L foot pain a bit better today. feels overall improved. stable dyspnea. denies voiding concerns. on insulin gtt d/t BG concerns Physical Exam 2 Vital Signs (Past 24 Hours): Last Vital Signs Temp 36.9 C 09/08/18 17:03 Pulse 71 09/08/18 17:03 Resp 18 09/08/18 17:03 BP 131/54 L 09/08/18 17:03 Pulse Ox 90 09/08/18 17:03 Constitutional: well developed, well nourished and + obese on 02NC, sitting in bed Eyes: EOM intact bilaterally ENMT: Ears: no external ear abnormality Nose: no external nose abnormality Mouth: + dry oral mucous membranes Neck: no nuchal rigidity Respiratory: normal respiratory effort Auscultation: + diminished lung sounds and + crackles (bibasilar) Cardiovascular: Rate/Rhythm: regular rate and regular rhythm Extremities: + edema (trace BLE) Gastrointestinal (Abdomen): Inspection/Auscultation: + abdomen distended and normal bowel sounds Percussion/Palpation: abdomen soft; abdomen nontender Musculoskeletal: Extremities: strength 5/5 throughout Skin: no rashes, warm and dry Neurologic: awake Speech / Cognition: normal cognition Motor/Sensory: normal movement Psychiatric: Orientation: alert and oriented x 3 Eye Contact: + fair eye contact Speech: normal rate/rhythm/volume of speech Thought Process: + circumstantial thought process Genitourinary: no oconnor Results & Data Laboratory Results Abnormal lab results 09/07/18 09/08/18 09/08/18 Range/Units 20:40 02:02 06:17 RBC (4.2-5.4) M/uL Hgb (12.0-16.0) g/dL Hct (37-47) % MCHC (32-36) g/dL RDW Std Deviation (36.4-46.3) fL RDW Coeff of Chris (11.5-14.5) % PT (9.0-12.0) Seconds INR (0.9-1.1) Sodium 133 L (136-145) mmol/L Chloride 97 L (98-107) mmol/L Carbon Dioxide 33 H (21-32) mmol/L BUN 33 H (7-18) mg/dl Creatinine 2.13 H D (0.6-1.2) mg/dl Glucose 245 H (70-99) mg/dl POC Glucose 319 H 323 H (70-99) Calcium 8.3 L (8.5-10.1) mg/dl 09/08/18 09/08/18 09/08/18 Range/Units 06:17 06:17 07:33 RBC 2.60 L (4.2-5.4) M/uL Hgb 7.4 L (12.0-16.0) g/dL Hct 23.5 L (37-47) % MCHC 31.5 L (32-36) g/dL RDW Std Deviation 50.0 H (36.4-46.3) fL RDW Coeff of Chris 15.1 H (11.5-14.5) % PT 16.1 H (9.0-12.0) Seconds INR 1.6 H (0.9-1.1) Sodium (136-145) mmol/L Chloride (98-107) mmol/L Carbon Dioxide (21-32) mmol/L BUN (7-18) mg/dl Creatinine (0.6-1.2) mg/dl Glucose (70-99) mg/dl POC Glucose 261 H (70-99) Calcium (8.5-10.1) mg/dl 09/08/18 09/08/18 09/08/18 Range/Units 11:25 11:30 11:33 RBC (4.2-5.4) M/uL Hgb (12.0-16.0) g/dL Hct (37-47) % MCHC (32-36) g/dL RDW Std Deviation (36.4-46.3) fL RDW Coeff of Chris (11.5-14.5) % PT (9.0-12.0) Seconds INR (0.9-1.1) Sodium (136-145) mmol/L Chloride (98-107) mmol/L Carbon Dioxide (21-32) mmol/L BUN (7-18) mg/dl Creatinine (0.6-1.2) mg/dl Glucose (70-99) mg/dl POC Glucose 357 H* 393 H* 382 H* (70-99) Calcium (8.5-10.1) mg/dl 09/08/18 09/08/18 09/08/18 Range/Units 13:14 13:17 14:04 RBC (4.2-5.4) M/uL Hgb 8.0 L (12.0-16.0) g/dL Hct 24.8 L (37-47) % MCHC (32-36) g/dL RDW Std Deviation (36.4-46.3) fL RDW Coeff of Chris (11.5-14.5) % PT (9.0-12.0) Seconds INR (0.9-1.1) Sodium (136-145) mmol/L Chloride (98-107) mmol/L Carbon Dioxide (21-32) mmol/L BUN (7-18) mg/dl Creatinine (0.6-1.2) mg/dl Glucose (70-99) mg/dl POC Glucose 465 H* 495 H* (70-99) Calcium (8.5-10.1) mg/dl 09/08/18 09/08/18 09/08/18 Range/Units 14:07 15:00 16:00 RBC (4.2-5.4) M/uL Hgb (12.0-16.0) g/dL Hct (37-47) % MCHC (32-36) g/dL RDW Std Deviation (36.4-46.3) fL RDW Coeff of Chris (11.5-14.5) % PT (9.0-12.0) Seconds INR (0.9-1.1) Sodium (136-145) mmol/L Chloride (98-107) mmol/L Carbon Dioxide (21-32) mmol/L BUN (7-18) mg/dl Creatinine (0.6-1.2) mg/dl Glucose (70-99) mg/dl POC Glucose 461 H* 406 H* 340 H (70-99) Calcium (8.5-10.1) mg/dl 09/08/18 Range/Units 17:10 RBC (4.2-5.4) M/uL Hgb (12.0-16.0) g/dL Hct (37-47) % MCHC (32-36) g/dL RDW Std Deviation (36.4-46.3) fL RDW Coeff of Chris (11.5-14.5) % PT (9.0-12.0) Seconds INR (0.9-1.1) Sodium (136-145) mmol/L Chloride (98-107) mmol/L Carbon Dioxide (21-32) mmol/L BUN (7-18) mg/dl Creatinine (0.6-1.2) mg/dl Glucose (70-99) mg/dl POC Glucose 306 H (70-99) Calcium (8.5-10.1) mg/dl _ (1) Acute on chronic renal failure Acute renal failure type: with acute tubular necrosis Chronic kidney disease stage: stage 3 (moderate) Qualified Code(s): N17.0 - Acute kidney failure with tubular necrosis; N18.3 - Chronic kidney disease, stage 3 (moderate)
[2018-09-08] MEDS: GABAPENTIN 300 MG CAP PO SCH (20:19)
[2018-09-09] MEDS: HYDROmorphone INJ 1 MG/ML SYRINGE IV PRN ×2 (04:49→08:27)
[2018-09-09] MEDS: LEVOTHYROXINE SODIUM 175 MCG TABLET PO SCH (06:15)
[2018-09-09] MEDS ORDERED: INSULIN DETEMIR FLEXPEN/FLEX TOUCH 100 UNITS/ML 3ML SC STA (07:49)
[2018-09-09] MEDS ORDERED: INSULIN ASPART 100 UNITS/ML 3 ML PEN SC STA (07:50)
[2018-09-09] MEDS: LINZESS: ORDER AWAITING ACTION SCH ×2 (08:14→15:02)
[2018-09-09] MEDS: PANTOprazole 40 MG TAB PO SCH (08:30)
[2018-09-09] MEDS: ASPIRIN 81 MG ECTAB PO SCH (08:30)
[2018-09-09] MEDS: CHOLECALCIFEROL 1,000 UNITS TAB PO SCH (08:30)
[2018-09-09] MEDS: ATORVASTATIN 40 MG TAB PO SCH (08:30)
[2018-09-09] MEDS: CARVEDILOL 25 MG TAB PO SCH (08:31)
[2018-09-09] MEDS: NICOTINE 21 MG/24 HR TDSY TD SCH (08:31)
[2018-09-09] MEDS: CLOPIDOGREL BISULFATE 75 MG TAB PO SCH (08:31)
[2018-09-09] MEDS: DOCUSATE SODIUM 100 MG CAP PO SCH (08:31)
[2018-09-09 08:52] LABS: Hematocrit (blood only) 27.1 % (37-47); Hemoglobin 8.4 g/dL (12.0-16.0); Mean Corpuscular Volume 91.9 fL (80-100); Mean Platelet Volume 9.2 fL (7.4-10.4); Platelet Count 313 K/uL (130-400); RDW Coefficient of Variation 15.1 % (11.5-14.5); RDW Standard Deviation 51.4 fL (36.4-46.3); Red Blood Count 2.95 M/uL (4.2-5.4); White Blood Count 8.25 K/uL (4.8-10.8)
[2018-09-09 08:59] LABS: INR 1.4 (0.9-1.1); Prothrombin Time 14.1 Seconds (9.0-12.0)
[2018-09-09 09:15] LABS: BUN Creatinine Ratio 16.4 (10-20); Calcium 8.8 mg/dl (8.5-10.1); Creatinine Clr Calc Pharmacy 34.8 ml/min; Est GFR (African American) 33.9; Est GFR (Non-African American) 29.2; Potassium 4.2 mmol/L (3.5-5.1)
[2018-09-09] MEDS: FUROSEMIDE 20 MG in SYRINGE 0 ML IV SCH (09:19)
[2018-09-09] MEDS: INSULIN ASPART 100 UNITS/ML 3 ML PEN SC SCH (12:05)
--- NOTE | 2018-09-09 13:21 | Pharmacy Report ---
Pharmacy Glycemic Short Note 2 - Date of Service September 09, 2018 - Glycemic Short BSG Results (Last 24 hours): 09/08/18 09/08/18 09/08/18 13:14 13:17 14:07 Glucose POC Glucose 465 H* 495 H* 461 H* 09/08/18 09/08/18 09/08/18 15:00 16:00 17:10 Glucose POC Glucose 406 H* 340 H 306 H 09/08/18 09/08/18 09/08/18 18:08 19:06 20:13 Glucose POC Glucose 221 H 208 H 157 H 09/08/18 09/08/18 09/08/18 21:02 21:21 21:47 Glucose POC Glucose 118 H 117 H 178 H 09/08/18 09/08/18 09/09/18 22:45 23:49 00:51 Glucose POC Glucose 168 H 183 H 177 H 09/09/18 09/09/18 09/09/18 01:48 03:47 06:06 Glucose POC Glucose 154 H 135 H 106 H 09/09/18 09/09/18 09/09/18 06:53 07:47 08:33 Glucose 224 H POC Glucose 151 H 182 H 09/09/18 11:50 Glucose POC Glucose 271 H ASSESSMENT: Insulin infsn had been held overnight due to BSGs being at goal. Will transition to basal/bolus regimen. She was 271 at lunch today, likely due to carb heavy breakfast. PLAN FOR INPATIENT GLYCEMIC CONTROL: * Hold outpatient oral diabetes medications (glipizide, metformin) * Basal insulin * Lantus 120 units given this AM as she was taken off the gtt. Then a lantus scale SQ BID set to start tonight: * BSGs <140mg/dL hold lantus * BSGs 140-180mg/dL give 10 units * BSGs >180mg/dL give 15 units * Bolus insulin * NovoLog per scale ACHS or Q6hrs while NPO * Goal Range: Low 120 mg/dL - High 160 mg/dL * Correction Factor: 25 mg/dL/unit * Nutritional / Prandial insulin per carb ratio of 1 unit per 9 grams CHO consumed PLAN FOR DISCHARGE: * A1c was at goal. If no episodes of hypoglycemia were experienced with current outpt regimen would recommend resuming all agents IF renal function recovers. If renal dysfunction continues at time of discharge a basal bolus regimen may be necessary as metformin and potentially glipizide may need to be held.
[2018-09-09] MEDS: WARFARIN SOD 3 MG TAB PO SCH (15:01)
[2018-09-09] MEDS: OXYCODONE HCL IR 5 MG TAB (IMMEDIATE RELEASE) PO PRN (15:01)
--- NOTE | 2018-09-09 15:39 | Nephrology Progress Note ---
Date of Service September 09, 2018 Assessment & Plan (1) Acute on chronic renal failure: Her creatinine was 1.4 on 08/30, 3.6 on 09/02, 3.2 on 09/05 when she was admitted for L foot pain, now trending down to 1.8 today chemistries acceptable. UA suggestive of ATN;c/b chronic systolic HF w/ EF 20%. Patient can be discharged on home dose of torsemide 20mg daily and continue holding sacubitril/ valsartan outpatient follow up by nephrology/cardiology -Check BMP mid next week Subjective Patient complains of pain in the feet, and legs. No urinary symptoms. Cr down trending. She is eager to go home. Review of Systems All systems reviewed & are unremarkable except as noted in HPI & below Physical Exam 2 Vital Signs (Past 24 Hours): Last Vital Signs Temp 37.1 C 09/09/18 14:51 Pulse 65 09/09/18 14:51 Resp 18 09/09/18 14:51 BP 134/72 09/09/18 14:51 Pulse Ox 98 09/09/18 14:51 Physical Exam: General exam: Appears comfortable, no acute distress HEENT: Pupils are equal and reactive to light Neck: No JVD, neck is supple trachea is midline Respiratory system: Clear breath sounds bilaterally. Gastrointestinal: Abdomen is soft, non distended, non tender, bowel sounds are present CVS: Regular rate and rhythm. No murmurs, rubs or gallops Musculoskeletal: No joint or muscle tenderness Extremities: Non tender, 1+ edema, peripheral pulses are present Neuro: Oriented, no tremors, no focal neurological deficits Skin: No rashes Results & Data Laboratory Results reviewed, cr 1.8 _ (1) Acute on chronic renal failure Acute renal failure type: with acute tubular necrosis Chronic kidney disease stage: stage 3 (moderate) Qualified Code(s): N17.0 - Acute kidney failure with tubular necrosis; N18.3 - Chronic kidney disease, stage 3 (moderate)
[2018-09-09] MEDS ORDERED: INSULIN GLARGINE SOLOSTAR 100 UNITS/ML 3 ML PEN SC SCH (21:00)
--- NOTE | 2018-09-10 02:59 | Discharge Summary ---
Date of Service September 09, 2018 Admission HPI Per Admitting Provider Chief Complaint: Pt is 63 y/o F with PMH CAD s/p CABG x 3 in 2005, DM II, COPD, on 2L oxygen HS, hypothyroidism, HTN, chronic systolic CHF, ischemic cardiomyopathy EF: 20-25% on echo 05/2018, dyslipidemia, CKD III, PVD, h/o femoropopliteal bypass in 2017 presented to ER with c/o L foot pain. Patient recently admitted 08/30/18-09/01/18 and on 08/31/18 had angiogram, mechanical thrombectomy with TPA mechanical thrombectomy with TPA, [employer]/stent to L femoropopliteal artery. Pt seen in ER 09/02/18 for LLE pain and had arterial doppler LLE at that time with patent L femoropopliteal graft, Cr: 3.5, and pt signed out AMA. Pt states taking percocet 5/325 4 times day without much relief of LLE pain. She describes pain as burning and stabbing to left ankle and L foot. Reports noticing some redness/purple coloration to foot that is intermittent. Denies any discharge or red streaking. Denies any known fever/chills. reports vomited twice yesterday, no further vomiting. States last BM couple of days ago. Denies diaphoresis, STARK, dizziness, syncope, vision changes, neck pain, CP, SOB, orthopnea, palpitations, cough, sore throat, choking, otalgia, rhinorrhea, abdominal pain, paresthesias, weakness, extremity edema, rashes, urinary symptoms. Admission Exam Per Admitting Provider General: no distress, WDWN Head: normocephalic, atraumatic Eyes: PERRL, EOM's intact, conjunctiva non-injected, anicteric ENT: normal inspection external ears except for dry scab noted to right external ear canal, nose, mucous membranes moist Neck: supple, trachea midline, non-tender Lungs: clear, no respiratory distress, no wheezing/rhonchi/rales CV: RRR, systolic murmur, no JVD, no pretibial edema Abd: normal BS, soft, non-tender Ext: no cyanosis, no calf tenderness, LLE: +healed surgical scars, leg non- tender to palpation, foot slight erythematous coloration, no red streaking, skin warm to touch, +moderate pain to light palpation entire L foot, brisk capillary refill, sensation to light touch intact Neuro: A&O x 3, no focal deficits noted, normal affect Skin: warm, dry Principal Diagnosis Acute foot pain PAD (peripheral artery disease) Acute kidney failure Elevated INR Discharge Exam Head- atraumatic Eyes- PERRL, EOMI, ENT- oropharynx clear Neck- supple, no JVD Lungs- clear to auscultation Heart- regular rhythm; +systolic murmur Abdomen- normal bowel sounds, soft, nontender Extremities- no calf tenderness, LLE: +healed surgical scars, + pain with light touch entire L foot Neuro- alert, oriented x 3; PERRL, EOMI; no facial palsy Skin- warm & dry Discharge Data Allergies Allergy/AdvReac Type Severity Reaction Status Date / Time amlodipine Allergy Intermediate Unknown Verified 09/05/18 12:37 Penicillins Allergy Unknown BUMPY RASH Verified 09/05/18 12:37 lisinopril AdvReac Intermediate Cough Verified 09/05/18 12:37 Consultations 09/05/18 14:32 ED Decision to Admit Stat 09/05/18 19:09 Consult Case Management - Discharge Planning Routine Consult Infectious Diseases Routine Consult Nephrology Routine Consult Vascular Surgery Routine 09/06/18 14:28 Consult Pain Management Routine Ordered Studies 09/05/18 11:33 US arterial duplex LE LT Stat XR KUB CLINICAL HISTORY: n/v abd pain constipation COMPARISON STUDY: No previous studies for comparison. FINDINGS: The soft tissues, psoas shadows, renal outlines and intestinal gas pattern appear normal. There is no evidence for bowel obstruction. No abnormal abdominal calcifications are seen. Postoperative changes noted. Vascular stents and atherosclerotic change present. IMPRESSION: No acute process. Nonobstructive bowel pattern. US arterial duplex LE LT CLINICAL HISTORY: 63 years-old Female presenting with LLE pain s/p fem-pop bypass and occlusion, status post graft revision on 08/31/2018. TECHNIQUE: Real-time grayscale and color and spectral Doppler ultrasound imaging of the left lower extremity arteries was performed. Measurements calculated based on NASCET criteria. COMPARISON: 09/02/2018. FINDINGS: LEFT: Graft: The arterial takeoff of the graft at the level of the common femoral artery is patent. Peak systolic velocity (PSV) proximal to the takeoff 120 cm/s and PSV in the proximal graft 90 cm/s, consistent with no stenosis. More distally PSV 42-53 cm/s in the midportion of the graft and 38 cm/s distally. The graft inserts onto the left popliteal artery. PSV distal to the anastomosis 47 cm/s. Monophasic waveforms are evident throughout the graft without evidence of tardus et parvus morphology. Common femoral artery: Patent. Monophasic waveforms. PSV 304 cm/s. Deep femoral artery: Not interrogated. Superficial femoral artery: Not interrogated. Popliteal artery: Patent though there is shadowing of the distal popliteal artery. Monophasic waveforms. PSV 28-109 cm/s. Posterior tibial artery: Patent. Monophasic waveforms. PSV 42 cm/s. Peroneal artery: Patent. Monophasic waveforms. PSV 39 cm/s. Anterior tibial artery: Patent. Monophasic waveforms. PSV 26 cm/s. Dorsalis pedis: Patent. Monophasic waveforms. PSV 22 cm/s. ANKLE/BRACHIAL INDEX (ABEL): Brachial: Right: mmHg. Left: mmHg. Ankle (posterior tibial): Right: mmHg. Left: mmHg. Ankle (dorsalis pedis): Right: mmHg. Left: mmHg. Ankle/brachial index: Right: , Left: . Reference ranges: Normal Ankle/Brachial Index (ABEL) 1.0-1.4; 0.91-0.99 borderline; < or = 0.9 abnormal (0.7-0.89 mild, 0.51-0.69 moderate, < or = 0.5 severe peripheral arterial disease). Normal Toe/Brachial Index (TBI) > or = 0.6; < 0.6 abnormal (0.34-0.59 mild, 0.12 -0.34 moderate, < or = 0.11 severe peripheral arterial disease). IMPRESSION: 1. Limited sonographic visualization of the distal left popliteal artery though this is presumably patent given the patent lower leg vessels. This relate to postsurgical change. 2. Patent left femoral-popliteal bypass graft. 3. Patent lower leg vessels. 4. Normal ankle-brachial indices. Electronically signed by: Choco Velasco M.D. 09/05/2018 2:11 PM Dictated: 09/05/18 140 Transcribed: 09/05/18 140 Hospital Course (1) Acute foot pain: (2) PAD (peripheral artery disease): Present on admission with severe L foot Arterial doppler showed of LLE showed limited sonographic visualization of the distal left popliteal artery though this is presumably patent given the patent lower leg vessels. This relate to postsurgical change. Patent left femoral- popliteal bypass graft. Patent lower leg vessels and normal ankle-brachial indices. vascular on board recommended no surgical intervention. Recommended pain management eval ID on board, no sign of infection noted Blood cx no growth, abx discontinued Continue pain control with dilaudid and oxycodone Gabapentin increased to 300mg HS Continue coumadin, INR 1.4 Pt refused gabapentin. She said that she is having intermittent jerking movement since starting it (3) Acute renal failure (ARF): In Er Cr: 3.2. Was 3.5 on 09/02/18 and 1.4 on 08/30/18. Hx contrast dye induced nephropathy in fall 2017. hx CKD III Creatinine 1.8 today Nephrology on board Case discussed with Dr. Rivera recommended to hold the Entresto and resume the torsemide Ok from nephro standpoint to discharge home Check BMP next week (4) Supratherapeutic INR: INR dropped to 1.4 No active bleeding Continue coumadin Follow up with the coag clinic (5) DM type 2 (diabetes mellitus, type 2): Hypoglycemia episodes A1c: 5.7 on 05/2018 Recently her levemir was decreased to 18 units HS Pharmacy consult for glycemic management Continue monitor BS closely Resume outpatient lantus dose Hold metformin and glizipize for now due to kidney failure (6) Anemia: Hgb dropped to 7.4 yesterday Hgb 8.4 today Will check CBC next week (7) CAD (coronary artery disease): s/p CABG x 3 in 2005. 05/2018 cardiac cath with patent grafts continue carvedilol, ASA, statin Stable (8) Chronic systolic heart failure: h/o ischemic cardiomyopathy. EF: 20-25% on echo 05/2018 No sign of overload OK from nephro to resume torsemide Monitor clossely (9) HTN (hypertension): continue carvedilol Hold entresto for now (10) Hypothyroidism: Continue levothyroxine Stable (11) COPD (chronic obstructive pulmonary disease): continue albuterol neb prn continue oxygen 2L NC HS (12) Tobacco use: Counseling on smoking cessation On nicotine patch DVT Prophylaxis INR 1.4, Continue coumadin CODE STATUS Full Code Total Time Total Time Spent Total Time Spent (In Minutes): 35 minutes Total Time Includes: Examination of the Patient, Discharge Planning, Medication Reconciliation, Communication With Other Providers and Other Discharge Plan Discharge Items Patient Disposition: Home - Home Health Services Reason For Visit: LLE PAIN,DARÍO Discharge Diagnosis: Acute foot pain/ PAD (peripheral artery disease)/ Acute kidney failure/ Elevated INR Condition: Fair Discharge Goals: Decrease discomfort Activity: Resume your previous activity Activity Comment: as tolerated Non-emergency contact: Primary Care Provider and [employer] Professor Call non-emergency contact if: you have any medication questions, your symptoms worsen and your temperature is above 101 Diet: Carb Consistent or DM2 and Heart Healthy Addtl Provider Instructions: Follow up with your primary care provider within 1 week (please call to schedule for the appointment) Follow up with your nephrology in 1 week (Please call to schedule for the appointment ) Follow up with your cardiology Follow up with the coumadin clinic Check BMP on Tuesday to monitor kidney function Check CBC on Tuesday to monitor hemoglobin Check PT/INR on Tuesday Fall precaution Continue physical and occupational therapy Monitor blood sugar closely Hold metformin and glipizide for now until kidney function back to baseline Hold entresto for now, your physician will tell you when to resume it Prescriptions: Continue ipratropium-albuterol [Combivent Respimat] 20-100 mcg/actuation mist 1 puffs INH QID PRN (Reason: Wheezing) RF: 0 docusate sodium [Colace] 100 mg capsule 100 mg PO BID RF: 0 insulin aspart U-100 [Novolog Flexpen U-100 Insulin] 100 unit/mL insulin pen 12 - 22 units SQ TID RF: 0 atorvastatin [Lipitor] 80 mg Tablet 80 mg PO QAM RF: 0 clopidogrel [Plavix] 75 mg tablet 75 mg PO QAM RF: 0 levothyroxine 175 mcg tablet 175 mcg PO QAM RF: 0 pantoprazole 40 mg tablet,delayed release (DR/EC) 40 mg PO QAM RF: 0 metformin 1,000 mg tablet 1,000 mg PO BID RF: 0 linaclotide 145 mcg capsule 1 tab PO QAM RF: 0 aspirin [Ecotrin Low Strength] 81 mg tablet,delayed release (DR/EC) 81 mg PO QAM RF: 0 warfarin [Coumadin] 5 mg tablet 5 mg PO DAILY Qty: 30 RF: 0 carvedilol [Coreg] 25 mg tablet 25 mg PO BID RF: 0 torsemide 20 mg tablet 1 tabs PO DAILY RF: 0 albuterol sulfate 90 mcg/actuation HFA aerosol inhaler 2 puff Inhalation Q4 PRN (Reason: Shortness Of Breath) RF: 0 glipizide [Glucotrol] 5 mg tablet 5 mg PO UD RF: 0 insulin detemir U-100 100 unit/mL solution 18 units subcut HS RF: 0 cholecalciferol (vitamin D3) 2,000 unit capsule 2,000 unit PO DAILY RF: 0 sacubitril-valsartan 97-103 mg tablet 1 tab PO BID RF: 0 oxycodone-acetaminophen 5-325 mg Tablet 1 tab PO Q6H PRN (Reason: Pain) RF: 0 Stand-Alone Forms: [facility] Discharge Orders: Discharge Order (Routine); Ordered 09/09/18 Ordered By: Helga Estrada Admission Data Admit Date/Time: 09/05/18 16:54 Attending Provider: Helga Estrada Admit Provider: Carson Arambula Primary Care Provider: Derian Lutz Other Providers: Pham Banerjee ; Kerri Montenegro ; Tony Gonzalez ; Carson Arambula ; Bethany Mixon ; Ivan Sandy ; Kerri Santos ; William Barajas ; Sujata Blandon ; Jennifer Rooney ; Home,Nursing Agency Service: Telemetry Other Interventions: Discharge Summary Assessment (RN) Last Done: 09/09/18 15:32 DC Date/Time DO NOT enter until pt leaves facility: 09/09/18 15:55
== END 2018-09-09 15:55 | disposition home health service (06) | DRG 299 ==
LOC: ED 10:55 → SUATTDRO 16:54 → 2N 16:54